=== PATIENT | male | born 1960 | race American Indian/Alaskan Native ===

== ENCOUNTER 2016-04-24 19:28 | Inpatient (IN) | payer MEDICAID ==
[2016-04-24] MEDS ORDERED: Albuterol-Ipratrop 3 mg / 0.5 (3 ml) UD ONE ×2 (19:44→20:14)
[2016-04-24] MEDS ORDERED: Albuterol-Ipratrop 3 mg / 0.5 (3 ml) UD IH STA ×2 (19:50→19:55)
--- NOTE | 2016-04-24 19:55 | ED PDOC ---
HPI: SOB/CHF/COPD Time Seen by Provider: 04/24/16 19:43 Chief Complaint (Nursing): Shortness Of Breath History Per: Patient (SOB and chest tightness x 2 days. Assoc with cough productive white sputum. Denies fever. H/oDVT and PE as well as COPD. Denies calf pain.) Onset/Duration Of Symptoms: Days (2) Quality: Tightness Current Respiratory Medications: See Home Med List Severity: Moderate Associated Symptoms: Productive Cough, Ankle/Leg Swelling. denies: Fever Past Medical History Vital Signs: Last Vital Signs Temp 98.2 F 04/24/16 19:38 Pulse 100 H 04/24/16 19:38 Resp 22 04/24/16 21:56 BP 163/114 H 04/24/16 19:38 Pulse Ox 92 L 04/24/16 21:56 - Medical History PMH: Arthritis, Asthma, Bronchitis, COPD, HTN, Pulmonary Embolism (per old chart. Pt states he had a collapse lung, unsure of PE) Denies: Alzheimer's Disease, Anemia, Atrial Fibrillation, CAD, Cardia Arrhythmia, CHF, Dementia, Emphysema, HIV, Hypercholesterolemia, Hyperthyroidism , Hypothyroidism, Kidney Stones, Migraine, Mitral Valve Prolapse, Multiple Sclerosis, Parkinson's Disease, Peripheral Edema, Pneumonia, Chronic Kidney Disease, Seizures, Sickle Cell Disease, Sleep Apnea, TIA - Surgical History Surgical History: Hernia Repair Denies: Pacemaker - Family History Family History: States: Unknown Family Hx - Immunization History Hx Tetanus Toxoid Vaccination: No Hx Influenza Vaccination: Yes Hx Pneumococcal Vaccination: Yes - Home Medications Home Medications: Ambulatory Orders Medication Instructions Recorded amLODIPine [Norvasc] 5 mg PO DAILY #0 tab 02/23/15 Albuterol 0.083% [Albuterol 0.083% 3 ml IH Q6H PRN #30 neb 04/05/15 Inhal Devora (2.5 mg/3 ml) UD] Albuterol HFA [Ventolin HFA 90 2 puff IH [id number] #1 puff 08/11/15 mcg/actuation (8 g)] Fluticasone/Salmeterol 100/50 1 puff INH RQ12 #0 puff 08/11/15 [Advair Diskus 100/50] Tiotropium [Spiriva] 18 mcg IH DAILY #0 cap 08/11/15 Albuterol HFA [Ventolin HFA 90 1 - 2 puff IH Q6 PRN #1 inhaler 01/21/16 mcg/actuation (8 g)] Methylprednisolone [Medrol Dosepak] 4 mg PO ASDIR #1 pkg 01/21/16 Albuterol 0.083% [Albuterol 0.083% 2.5 mg IH Q4 PRN #20 neb 02/02/16 Inhal Devora (2.5 mg/3 ml) UD] Albuterol HFA [Ventolin HFA 90 1 - 2 puff IH Q4 PRN #1 inhaler 02/02/16 mcg/actuation (8 g)] Prednisone 50 mg PO DAILY #4 tab 02/02/16 Oseltamivir [Tamiflu] 75 mg PO BID #8 cap 02/13/16 Prednisone [Deltasone] 20 mg PO DAILY 10 Days 02/13/16 - Allergies Allergies/Adverse Reactions: Allergies Allergy/AdvReac Type Severity Reaction Status Date / Time No Known Allergies Allergy Verified 02/14/16 23:38 Review of Systems ROS Statement: Except As Marked, All Systems Reviewed And Found Negative Constitutional: Negative for: Fever Cardiovascular: Negative for: Chest Pain Respiratory: Positive for: Cough, Shortness of Breath Physical Exam - Reviewed Nursing Documentation Reviewed: Yes Vital Signs Reviewed: Yes - Physical Exam Appears: Positive for: Non-toxic, Uncomfortable Head Exam: Positive for: ATRAUMATIC, NORMAL INSPECTION, NORMOCEPHALIC Skin: Positive for: Normal Color, Warm, DRY Eye Exam: Positive for: EOMI, Normal appearance, PERRL ENT: Positive for: Normal ENT Inspection Neck: Positive for: Normal, Painless ROM Cardiovascular/Chest: Positive for: Regular Rate, Rhythm Respiratory: Positive for: Rhonchi, Wheezing Gastrointestinal/Abdominal: Positive for: Normal Exam, Bowel Sounds, Soft Back: Positive for: Normal Inspection Extremity: Positive for: Swelling (Induration bilat lower ext.) Neurologic/Psych: Positive for: Alert, Oriented - Laboratory Results Result Diagrams: 04/24/16 20:17 04/24/16 20:17 - ECG O2 Sat by Pulse Oximetry: 92 Disposition - Clinical Impression Clinical Impression: COPD with exacerbation - Patient ED Disposition Is Patient to be Admitted: Transfer of Care - Disposition Disposition: Transfer of Care Disposition Time: 23:49 Condition: FAIR Patient Signed Over To: Ethel Sauer
[2016-04-24 21:28] LABS: BASO # 0.1 K/uL (0.0-0.2); BASO % 1.5 % (0.0-2.0); EOS # 0.4 K/uL (0.0-0.7); EOS % 7.3 % (0.0-4.0); HEMATOCRIT 33.6 % (35.0-51.0); LYMPH # 1.4 K/uL (1.0-4.3); LYMPH % 22.8 % (20.0-40.0); MEAN CELL VOLUME 89.1 fl (80.0-94.0); MEAN CORPUSCULAR HEMOGLOBIN 27.1 pg (27.0-31.0); MEAN CORPUSCULAR HGB CONC 30.4 g/dL (33.0-37.0); MEAN PLATELET VOLUME 9.6 fl (7.2-11.7); MONO # 0.6 K/uL (0.0-0.8); MONO % 9.3 % (0.0-10.0); NEUT # 3.6 K/uL (1.8-7.0); NEUT % 59.1 % (50.0-75.0); NRBC % 0.1 % (0.0-0.0); RED CELL DISTRIBUTION WIDTH 17.5 % (11.5-14.5)
[2016-04-24 21:42] LABS: ALB/GLOB RATIO 0.9 (1.0-2.1); ALKALINE PHOSPHATASE 83 U/L (38-126); ALT/SGPT 28 U/L (21-72); AST/SGOT 25 U/L (17-59); BILIRUBIN,TOTAL 0.6 mg/dl (0.2-1.3); BLOOD UREA NITROGEN 11 mg/dl (9-20); CALCIUM 8.8 mg/dL (8.4-10.2); CARBON DIOXIDE 26 mmol/L (22-30); CHLORIDE 101 mmol/L (98-107); GFR AFRICAN-AMERICAN > 60; GLUCOSE,RANDOM 85 mg/dL (75-110); SODIUM 133 mmol/l (132-148); TOTAL PROTEIN 8.5 G/DL (6.3-8.2)
[2016-04-24 21:46] LABS: POTASSIUM 4.3 MMOL/L (3.6-5.0)
[2016-04-24] MEDS ORDERED: Sodium Chloride 0.9% 50 ML IV ONE (22:31)
[2016-04-24] MEDS ORDERED: Iodixanol 320 MG/ML 100 ML BOTTLE IV ONE (22:31)
--- NOTE | 2016-04-24 23:55 | ED PDOC ---
- Laboratory Results Result Diagrams: 04/26/16 05:00 04/26/16 05:00 - ECG O2 Sat by Pulse Oximetry: 92 Medical Decision Making Medical Decision Makin:00 Pt signed out to me by Dr. Lynn MD. Pending CT, duplex, and admission under Dr. Cates. 00:39 CT FINDINGS: Heart, aorta and Pulmonary arteries: Heart size is normal. There are coronary calcifications.There is fluid in the pericardial recesses.There is no aneurysm or dissection.There are vascular calcifications. Bolus timing limits evaluation of pulmonary arteries. There are no pulmonary emboli. Lungs and Pleural space: Trachea and main bronchi are patent. There is apical scarring bilaterally. There is apical pleural thickening. There are small blebs at the lung apices. There is asymmetric thickening of the right major fissure. There is fatty pleural thickening at the apex of the right major fissure. There is scarring at the lung bases. There are asymmetric groundglass opacities greatest at the lung bases. There is minimal scarring in the lingula. There is no focal consolidation. There are no effusions. Mediastinum: There is shotty mediastinal adenopathy. There are no pathologically enlarged hilar nodes. Esophagus is unremarkable. There is a small hiatal hernia. Thyroid: Thyroid is not optimally demonstrated. Bones/joints: There are no acute osseous abnormalities Soft tissues: unremarkable Upper abdomen: There is a coarse calcification in the right lobe of the liver. IMPRESSION: Slightly limited by bolus timing, no aneurysm, dissection or pulmonary embolus; no focal consolidation Pt will be admitted for COPD exacerbation under Dr. Cates. Duplex LE: bilateral lower extremities DVTS (pt has history) pt given one dose of lovenox for DVTS. pt does not have PEs on CT. DX bilat dvts, copd Documented by Leeann Fierro, acting as a scribe for Ethel Sauer MD. All medical record entries made by the Scribe were at my direction and personally dictated by me. I have reviewed the chart and agree that the record accurately reflects my personal performance of the history, physical exam, medical decision making, and the department course for this patient. I have also personally directed, reviewed, and agree with the discharge instructions and disposition. Disposition - Clinical Impression Clinical Impression: COPD with exacerbation, Deep vein thrombosis - POA Present On Arrival: Deep Vein Thrombosis / PE - Disposition Disposition: Admitted as In-Patient Disposition Time: 21:30 Condition: STABLE
--- NOTE | 2016-04-25 00:10 | CT ---
EXAM: CT Angiography Chest With Intravenous Contrast. CLINICAL HISTORY: 55 years old, male; Signs and symptoms; Shortness of breath; Additional info: Elevated d dimer TECHNIQUE: Axial computed tomographic angiography images of the chest with intravenous contrast using pulmonary embolism protocol. This CT exam was performed using one or more of the following dose reduction techniques: automated exposure control, adjustment of the mA and/or kV according to patient size, and/or use of iterative reconstruction technique. MIP reconstructed images were created and reviewed. Coronal and sagittal reformatted images were created and reviewed. CONTRAST: 95 mL of [id number] administered intravenously. EXAM DATE/TIME: 04/24/2016 10:23 PM COMPARISON: CR - CHEST PORTABLE 04/24/2016 7:59:49 PM FINDINGS: Heart, aorta and Pulmonary arteries: Heart size is normal. There are coronary calcifications.There is fluid in the pericardial recesses.There is no aneurysm or dissection.There are vascular calcifications. Bolus timing limits evaluation of pulmonary arteries. There are no pulmonary emboli. Lungs and Pleural space: Trachea and main bronchi are patent. There is apical scarring bilaterally. There is apical pleural thickening. There are small blebs at the lung apices. There is asymmetric thickening of the right major fissure. There is fatty pleural thickening at the apex of the right major fissure. There is scarring at the lung bases. There are asymmetric groundglass opacities greatest at the lung bases. There is minimal scarring in the lingula. There is no focal consolidation. There are no effusions. Mediastinum: There is shotty mediastinal adenopathy. There are no pathologically enlarged hilar nodes. Esophagus is unremarkable. There is a small hiatal hernia. Thyroid: Thyroid is not optimally demonstrated. Bones/joints: There are no acute osseous abnormalities Soft tissues: unremarkable Upper abdomen: There is a coarse calcification in the right lobe of the liver. IMPRESSION: Slightly limited by bolus timing, no aneurysm, dissection or pulmonary embolus; no focal consolidation
[2016-04-25] MEDS ORDERED: Enoxaparin 80 mg Syringe SC STA (01:32)
[2016-04-25] MEDS ORDERED: Albuterol-Ipratrop 3 mg / 0.5 (3 ml) UD INH STA (02:21)
[2016-04-25] MEDS ORDERED: Albuterol-Ipratrop 3 mg / 0.5 (3 ml) UD ONE (02:29)
[2016-04-25 04:24] VITALS: BMI 24.3
--- NOTE | 2016-04-25 07:12 | CARD ---
APPROVED REPORT EKG Measurement Heart [id number] <Conclusion> Sinus tachycardia Possible Left atrial enlargement Left anterior fascicular block Abnormal ECG
[2016-04-25] MEDS ORDERED: Pneumococcal 23-Valent Vaccine IM ONE (08:00)
[2016-04-25] MEDS ORDERED: Influenza Vaccine(5yr & older) 0.5 ML/45 MCG IM ONE (08:00)
[2016-04-25 10:39] LABS: THYROID STIMULATING HORMONE 4.07 mIU/ML (0.46-4.68)
--- NOTE | 2016-04-25 11:04 | US ---
Bilateral lower extremity ultrasound. Indication: History of DVT Technique: Duplex ultrasound evaluation of the bilateral lower extremities Comparison: None available Findings: Right lower extremity: Occlusive thrombus evident with incomplete compressibility of the confluence of the right common femoral vein and greater saphenous vein. Occlusive thrombus with noncompressibility of the proximal femoral vein, mid femoral vein, and distal femoral vein. Partial compressibility of the right popliteal vein. Flow was noted in the right popliteal vein. The right posterior tibial vein appears patent. Right calf and ankle soft tissue edema. Mildly prominent right inguinal lymph nodes. Left lower extremity: The left common femoral vein appears patent. Occlusive thrombus with noncompressibility of the left femoral vein (proximal, mid, and distal portions). Partial compressibility of the left popliteal vein with flow demonstrated on Doppler imaging. The left posterior tibial vein appears patent. There is calf and ankle soft tissue edema. Sub cm left inguinal lymph nodes. Impression: Bilateral lower extremity thrombus as above. Preliminary impression was provided by virtual radiologic.
--- NOTE | 2016-04-25 13:34 | RAD ---
HISTORY: cough COMPARISON: Chest x-ray performed 02/15/16 TECHNIQUE: Chest, one view. FINDINGS: LUNGS: No focal consolidation. Please note that chest x-ray has limited sensitivity for the detection of pulmonary masses. PLEURA: No significant pleural effusion identified. No definite pneumothorax . CARDIOVASCULAR: Heart size appears within normal limits. Dense atherosclerotic calcifications of the aorta. OSSEOUS STRUCTURES: No acute osseous abnormality identified. VISUALIZED UPPER ABDOMEN: Unremarkable. OTHER FINDINGS: None. IMPRESSION: No focal consolidation, significant pleural effusion, or definite pneumothorax identified.
--- NOTE | 2016-04-25 15:32 | CP.PCM.HP ---
<Heena Pemberton - Last Filed: 04/25/16 15:30> History of Present Illness - History of Present Illness History of Present Illness: pt is a 55 y/o male with history of COPD and bilateral DVT and PE presented to ED yesterday with cc of shortness of breath and productive white sputum with associated chest tightness. ED work up indicated COPD exacerbation and found DVTs in the lower extremity as well but no PE. Pt seen and examined at bedside this morning, sob has improved, denies calf tenderness but lower extremity appears swollen. No abdominal pain, nausea or vomiting. Present on Admission - Present on Admission Any Indicators Present on Admission: Yes History of DVT/PE: Yes Review of Systems - Review of Systems All systems: reviewed and no additional remarkable complaints except Review of Systems: Per HPI Past Patient History - Infectious Disease Hx of Infectious Diseases: None - Past Medical History & Family History Past Medical History?: Yes - Past Social History Smoking Status: 1 pack a d - CARDIAC Hx Cardiac Disorders: Yes (HTN) - PULMONARY Hx Respiratory Disorders: Yes (COPD, BRONCHITIS, ASTHMA) Hx Asthma: Yes Hx Bronchitis: Yes Hx Chronic Obstructive Pulmonary Disease (COPD): Yes Hx Pulmonary Embolism: Yes Other/Comment: collapsed lung - NEUROLOGICAL Hx Neurological Disorder: No Hx Alzheimer's Disease: No Hx Dementia: No Hx Migraine: No Hx Multiple Sclerosis: No Hx Parkinson's Disease: No Hx Seizures: No Hx Transient Ischemic Attacks (TIA): No - HEENT Hx HEENT Problems: No - RENAL Hx Chronic Kidney Disease: No Hx Dialysis: No - ENDOCRINE/METABOLIC Hx Endocrine Disorders: No Hx Hyperthyroidism: No Hx Hypothyroidism: No - HEMATOLOGICAL/ONCOLOGICAL Hx Blood Disorders: No Hx AIDS: No Hx Blood Transfusions: No Hx Blood Transfusion Reaction: No Hx Human Immunodeficiency Virus (HIV): No - INTEGUMENTARY Hx Dermatological Problems: No - MUSCULOSKELETAL/RHEUMATOLOGICAL Hx Musculoskeletal Disorders: Yes Hx Arthritis: Yes Hx Falls: No - GASTROINTESTINAL Hx Gastrointestinal Disorders: Yes Other/Comment: hernia repair - GENITOURINARY/GYNECOLOGICAL Hx Genitourinary Disorders: No - PSYCHIATRIC Hx Psychophysiologic Disorder: Yes Hx Substance Use: Yes (just had one yestreday (heroine)) - SURGICAL HISTORY Hx Surgeries: Yes Hx Herniorrhaphy: Yes Other/Comment: collapsed lung - ANESTHESIA Hx Anesthesia: Yes Hx Anesthesia Reactions: No Hx Malignant Hyperthermia: No Meds Allergies/Adverse Reactions: Allergies Allergy/AdvReac Type Severity Reaction Status Date / Time No Known Allergies Allergy Verified 02/14/16 23:38 Physical Exam - Constitutional Appears: Non-toxic, No Acute Distress - Head Exam Head Exam: NORMOCEPHALIC - Eye Exam Eye Exam: Normal appearance - ENT Exam ENT Exam: Mucous Membranes Moist - Respiratory Exam Respiratory Exam: Clear to Auscultation Bilateral, NORMAL BREATHING PATTERN - Cardiovascular Exam Cardiovascular Exam: REGULAR RHYTHM, +S1, +S2 - GI/Abdominal Exam GI & Abdominal Exam: Normal Bowel Sounds, Soft. absent: Tenderness - Extremities Exam Extremities exam: Positive for: pedal edema. Negative for: calf tenderness Additional comments: 1+ pitting edema in lower extremity bilaterally - Neurological Exam Neurological exam: Alert, CN II-XII Intact, Oriented x3 Results - Vital Signs Recent Vital Signs: Last Vital Signs Temp 98.5 F 04/25/16 12:00 Pulse 66 04/25/16 12:00 Resp 30 H 04/25/16 12:00 BP 140/90 04/25/16 10:00 Pulse Ox 98 04/25/16 12:00 - Labs Result Diagrams: 04/24/16 20:17 04/24/16 20:17 Assessment & Plan - Assessment and Plan (Free Text) Assessment: 55 y/o male with COPD admitted to ICU for COPD exacerbation and bilateral DVT in lower extremity Plan: 1. COPD exacerbation on steriod taper albuterol and home meds resumed antibiotic as ordered continue to monitor 2. Bilateral lower extremity DVT on therapeutic dosage of lovenox will hold Eliqus 3. Lower extremity edema echo ordered r/o underlying cardiac etiology 4. Diet- heart healthy <Cates,Jj K - Last Filed: 04/28/16 12:39> Results - Vital Signs Recent Vital Signs: Last Vital Signs Temp 97.8 F 04/28/16 08:00 Pulse 82 04/28/16 10:23 Resp 24 04/28/16 08:00 BP 149/97 H 04/28/16 10:23 Pulse Ox 99 04/28/16 08:00 - Labs Result Diagrams: 04/26/16 05:00 04/26/16 05:00 Labs: Laboratory Results - last 24 hr 04/27/16 04/27/16 09:31 18:00 Folate 10.0 Stool Occult Blood Negative Assessment & Plan - Assessment and Plan (Free Text) Assessment: Patient was personally seen and examined by me in rounds with residents. Available labs and diagnostic data reviewed. Case, Patient's condition and management plan discussed with residents in rounds. Agree with resident's documentation. Plan: As ordered. Jj Cates MD
[2016-04-25] MEDS: Fluticasone-Salmeterol 100-50mcg Diskus INH SCH ×2 (16:03→22:59)
[2016-04-25] MEDS: methylPREDNISolone 60 MG in Sodium Chloride 0.9% 50 ML IVPB SCH ×2 (16:27→21:35)
--- NOTE | 2016-04-25 20:45 | CP.CCUPN ---
CCU Subjective - Physician Review Events Since Last Encounter (Free Text): 04/25/16 20:38 Reason for assessment: Mental status change HPI: This is a 55 y/o male here with COPD exacerbation and DVT on Lovenox. Notified by nurse that he started acting abnormally and having some 'seizure like activity'. Came to see patient-- he is awake and answering questions, but does not reliably follow commands. He does not appear to have any seizure-like activity at this time. He has no c/c. He was being visited by a friend, and friend notified nurse that he was acting abnormal. Friend and patient deny that patient took any substance prior to onset of abnormal behavior. BP: elevated SBP > 170 Phys Exam: Only acute finding appears to be that patient is acting 'abnormally' -- appears ?intoxicated. Able to answer some questions. Appears to be able to move all extremities, but repeatedly holds RUE in the air. A/P: 55 y/o male with acute change in mental status -CT head non con stat -CMP, CBC stat -UDS stat CCU Objective - Vital Signs / Intake & Output Vital Signs (Last 4 hours): Vital Signs Pulse Resp BP Pulse Ox 04/25/16 19:57 100 H 25 H 140/51 L 98 04/25/16 17:50 83 25 H 141/92 H 99 - Medications Active Medications: Active Medications Generic Name Dose Route Start Last Admin Trade Name Freq PRN Reason Stop Dose Admin Amlodipine Besylate 5 mg 04/26/16 09:00 Norvasc PO DAILY LILY Enoxaparin Sodium 80 mg 04/25/16 21:00 Lovenox SC Q12 LILY Protocol Methylprednisolone 60 mg/ 50.96 mls @ 100 mls/hr 04/25/16 16:00 04/25/16 16:27 Sodium Chloride IVPB 100 mls/hr Q6 LILY Administration Levofloxacin/Dextrose 100 mls @ 100 mls/hr 04/26/16 09:00 Levaquin 500mg IVPB DAILY LILY Fluticasone/Salmeterol 1 puff 04/25/16 15:15 04/25/16 16:03 Advair Diskus 100/50 INH 1 puff RBID LILY Administration Tiotropium [place] 18 mcg 04/26/16 09:00 Spiriva IH DAILY LILY
[2016-04-25 21:01] LABS: HEMATOCRIT 33.1 % (35.0-51.0); MEAN CELL VOLUME 87.9 fl (80.0-94.0); MEAN CORPUSCULAR HEMOGLOBIN 27.3 pg (27.0-31.0); MEAN CORPUSCULAR HGB CONC 31.1 g/dL (33.0-37.0); RED CELL DISTRIBUTION WIDTH 17.5 % (11.5-14.5); WHITE BLOOD COUNT 6.1 K/uL (4.8-10.8)
[2016-04-25 21:04] LABS: FOLATE 14.5 ng/mL
--- NOTE | 2016-04-25 21:10 | CT ---
EXAM: CT Head Without Intravenous Contrast. CLINICAL HISTORY: 55 years old, male; Signs and symptoms; Other: AMS TECHNIQUE: Axial computed tomography images of the head/brain without intravenous contrast. This CT exam was performed using one or more of the following dose reduction techniques: automated exposure control, adjustment of the mA and/or kV according to patient size, and/or use of iterative reconstruction technique. Coronal and sagittal reformatted images were created and reviewed. EXAM DATE/TIME: 04/25/2016 8:35 PM COMPARISON: There are no prior studies for comparison. FINDINGS: Artifacts: Motion artifact degrades image quality. Brain: Ventricles are normal in size and configuration. There is no midline shift. There are no intra-axial or extra-axial mass lesions or areas of hemorrhage.There are basal ganglia calcifications. There are no abnormal fluid collections. Bazan-white differentiation is maintained. Ventricles: See above. Bones: Cranial vault is intact. Soft tissues: unremarkable Sinuses: There is frontal and sphenoid sinus disease Ears and mastoids: Middle ears and mastoids are unremarkable Orbits: Orbital contents are unremarkable. IMPRESSION: No acute intracranial abnormality; sinus disease
[2016-04-25 21:20] LABS: ALB/GLOB RATIO 0.9 (1.0-2.1); ALKALINE PHOSPHATASE 95 U/L (38-126); ALT/SGPT 20 U/L (21-72); AST/SGOT 23 U/L (17-59); BILIRUBIN,TOTAL 0.3 mg/dl (0.2-1.3); BLOOD UREA NITROGEN 16 mg/dl (9-20); CALCIUM 9.5 mg/dL (8.4-10.2); CARBON DIOXIDE 29 mmol/L (22-30); CHLORIDE 98 mmol/L (98-107); GFR AFRICAN-AMERICAN > 60; GLUCOSE,RANDOM 124 mg/dL (75-110); SODIUM 135 mmol/l (132-148); TOTAL PROTEIN 8.9 G/DL (6.3-8.2)
[2016-04-25 21:28] LABS: POTASSIUM 5.6 MMOL/L (3.6-5.0)
[2016-04-25] MEDS: Enoxaparin 80 mg Syringe SC SCH (22:19)
[2016-04-26] MEDS: methylPREDNISolone 60 MG in Sodium Chloride 0.9% 50 ML IVPB SCH ×4 (04:13→22:09)
[2016-04-26 06:44] LABS: HEMATOCRIT 30.3 % (35.0-51.0); MEAN CELL VOLUME 88.4 fl (80.0-94.0); MEAN CORPUSCULAR HEMOGLOBIN 27.3 pg (27.0-31.0); MEAN CORPUSCULAR HGB CONC 30.9 g/dL (33.0-37.0); RED CELL DISTRIBUTION WIDTH 17.5 % (11.5-14.5); WHITE BLOOD COUNT 4.8 K/uL (4.8-10.8)
[2016-04-26 07:05] LABS: BLOOD UREA NITROGEN 16 mg/dl (9-20); CALCIUM 9.3 mg/dL (8.4-10.2); CARBON DIOXIDE 27 mmol/L (22-30); CHLORIDE 101 mmol/L (98-107); GFR AFRICAN-AMERICAN > 60; GLUCOSE,RANDOM 132 mg/dL (75-110); POTASSIUM 4.9 MMOL/L (3.6-5.0); SODIUM 137 mmol/l (132-148)
--- NOTE | 2016-04-26 07:18 | CARD ---
APPROVED REPORT EXAM: Two-dimensional and M-mode echocardiogram with Doppler and color Doppler. Other Information Quality : AverageRhythm : NSR INDICATION Dyspnea Peripheral Edema 2D DIMENSIONS IVSd1.19 (0.7-1.1cm)LVDd4.75 (3.9-5.9cm) PWd1.04 (0.7-1.1cm)IVSs1.30 (0.8-1.2cm) LVDs3.20 (2.5-4.0cm)FS (%) 32.7 % PWs1.71 (0.8-1.2cm) M-Mode DIMENSIONS Left Atrium (MM)3.53 (2.5-4.0cm)IVSd1.13 (0.7-1.1cm) Aortic Root3.50 (2.2-3.7cm)LVDd5.24 (4.0-5.6cm) Aortic Cusp Exc.1.88 (1.5-2.0cm)PWd0.99 (0.7-1.1cm) IVSs1.60 cmFS (%) 32 % LVDs3.56 (2.0-3.8cm)PWs1.60 cm Mitral Valve MV E Lajmlqnq20.1cm/sMV DECEL [id number] A Bcdgrqmj85.1cm/s MV JUU28ofA/A ratio1.1MVA (PHT)4.41cm2 TDI Lateral E' Peak V9.45cm/sMedial E' Peak V8.64cm/sE/Lateral E'10.0 E/Medial E'10.9 Tricuspid Valve TR Peak Neujdvec629hk/sRAP [id number] Peak Gr.32mmHg [id number] LEFT VENTRICLE The left ventricle is normal size. There is normal left ventricular wall thickness. Left ventricle systolic function is normal. The Ejection Fraction is 65-70%. There is normal LV segmental wall motion. The left ventricular diastolic function is normal. RIGHT VENTRICLE The right ventricle is normal size. There is normal right ventricular wall thickness. The right ventricular systolic function is normal. ATRIA The left atrium size is normal. The right atrium size is normal. The interatrial septum is intact with no evidence for an atrial septal defect. AORTIC VALVE The aortic valve is normal in structure and function. No aortic regurgitation is present. There is no aortic valvular stenosis. MITRAL VALVE The mitral valve is normal in structure and function. There is no evidence of mitral valve prolapse. There is no mitral valve stenosis. There is no mitral valve regurgitation noted. TRICUSPID VALVE The tricuspid valve is normal in structure. There is mild to moderate tricuspid regurgitation. Right ventricular systolic pressure is estimated at 42 mmHg. There is mild-moderate pulmonary hypertension. PULMONIC VALVE The pulmonary valve is normal in structure and function. There is no pulmonic valvular regurgitation. GREAT VESSELS The aortic root is normal in size. Due to poor image quality, the IVC could not be assessed. PERICARDIAL EFFUSION The pericardium appears normal. <Conclusion> The left ventricle is normal size. There is normal left ventricular wall thickness. There is normal LV segmental wall motion. Left ventricle systolic function is normal. The Ejection Fraction is 65-70%. The left ventricular diastolic function is normal. There is mild to moderate tricuspid regurgitation. There is mild-moderate pulmonary hypertension.
--- NOTE | 2016-04-26 08:18 | HP ---
CHIEF COMPLAINT: Shortness of breath. HISTORY OF PRESENT ILLNESS: This is a 55-year-old male, known case of COPD, hypertension, history of DVT, and pulmonary embolism, bronchitis, asthma, arthritis, and obesity who was having shortness of breath so the patient was brought to Emergency Room and was admitted for further management. The pat ient was having chest tightness and shortness of breath for 2 days, which did not improve and got wor se. REVIEW OF SYSTEMS: Positive for chest tightness and shortness of breath. Review of systems otherwis e negative for headache, dizziness, syncope, loss of consciousness, nausea, vomiting, diarrhea, const ipation, any new joint or extremity pain. Review of systems of all other organ systems is unremarkab le. PAST MEDICAL HISTORY: Significant for pulmonary embolism, DVT, hypertension, COPD, bronchial asthma, arthritis, obesity. PAST SURGICAL HISTORY: Remarkable for . PERSONAL HISTORY: The patient is currently nonsmoker, nondrinker, no substance abuse. MEDICATIONS: The patient is on multiple medications which include amlodipine, albuterol, Advair, Spi sayra, prednisolone, Tamiflu. The patient is not allergic to any medication. FAMILY HISTORY: Noncontributory. PHYSICAL EXAMINATION: Well-built, well-nourished, overweight male in no acute distress. VITAL SIGNS: Temperature 98.5, pulse 66, respirations 18, blood pressure 140/90. HEENT EXAMINATION: Pupils reacting to light. The patient is wearing glasses. No JVD, no thyromegaly, no lymphadenopathy. No nystagmus. Normocephalic, atraumatic skull. HEART EXAMINATION: S1, S2 normal, tachycardic. No significant murmur, gallop, or rub is heard. LUNG EXAMINATION: Shows good bilateral air exchange, prolonged expiratory rate consistent with COPD with exacerbation. No rales or rhonchi. ABDOMEN: Soft, nontender, no organomegaly, no fluid. Bowel sounds are plus. EXTREMITY EXAMINATION: No edema, no calf swelling, no tenderness, no acute ischemia. CENTRAL NERVOUS SYSTEM EXAMINATION: The patient is alert, awake, oriented x 3. There is no sign of any acute gross focal, motor, or sensory neurological deficit. DIAGNOSTIC DATA: Available diagnostic data reviewed. WBC 6.0, hemoglobin 10.2, hematocrit 33.6, kandice telets 260, 11.5. INR 1.1. D-dimer is 3.99. SMA-12: Sodium 143, potassium 4.3, chloride 102, bicarb 26, BUN 11, creatinine 0.3. SMA-12 is unremarkable. Chest x-ray is clear. Chest CAT scan shows no aneurysm, dissection, or pulmonary embolism. Extremit y ultrasound shows bilateral DVTs. ADMITTING IMPRESSION: Chronic obstructive pulmonary disease with exacerbation, bilateral deep vein t hrombosis, hypertension, asthma, bronchitis. PLAN: As ordered. Case and plan discussed with the patient. Case and plan also discussed with inte nsivist. Jj Cates MD cc: [id number] TT: 04/25/2016 18:57:56 jn
[2016-04-26] MEDS: Fluticasone-Salmeterol 100-50mcg Diskus INH SCH ×2 (08:32→20:43)
[2016-04-26] MEDS: Enoxaparin 80 mg Syringe SC SCH ×2 (08:33→20:44)
[2016-04-26] MEDS: Tiotropium 18 mcg Cap For Inhalation IH SCH (08:34)
--- NOTE | 2016-04-26 12:14 | CP.PCM.PN ---
<Heena Pemberton - Last Filed: 04/26/16 12:17> Subjective - Date & Time of Evaluation Date of Evaluation: 04/26/16 Time of Evaluation: 07:40 - Subjective Subjective: Pt seen and examined at bedside, doing ok, states breathing has improved. does not have any complaints Objective - Vital Signs/Intake and Output Vital Signs (last 24 hours): Temp Pulse Resp BP Pulse Ox 97.7 F 77 20 132/72 98 04/26/16 12:00 04/26/16 12:00 04/26/16 12:00 04/26/16 12:00 04/26/16 12:00 Intake and Output: 04/26/16 04/26/16 06:59 18:59 Intake Total 400 Output Total 400 Balance 0 - Medications Medications: Current Medications Amlodipine Besylate (Norvasc) 5 mg PO DAILY [facility] Last Admin: 04/26/16 08:34 Dose: 5 mg Enoxaparin Sodium (Lovenox) 80 mg SC Q12 [facility] PRN Reason: Protocol Last Admin: 04/26/16 08:33 Dose: 80 mg Methylprednisolone 60 mg/ (Sodium Chloride) 50.96 mls @ 100 mls/hr IVPB Q6 [facility] Last Admin: 04/26/16 10:50 Dose: 100 mls/hr Levofloxacin/Dextrose (Levaquin 500mg) 100 mls @ 100 mls/hr IVPB DAILY [facility] Last Admin: 04/26/16 08:33 Dose: 100 mls/hr Fluticasone/Salmeterol (Advair Diskus 100/50) 1 puff INH RBID [facility] Last Admin: 04/26/16 08:32 Dose: 1 puff Tiotropium [place] (Spiriva) 18 mcg IH DAILY [facility] Last Admin: 04/26/16 08:34 Dose: 18 mcg - Labs Labs: 04/26/16 05:00 04/26/16 05:00 PT 11.5 SECONDS (9.6-11.2) H 04/24/16 20:17 INR 1.11 (0.92-1.08) H 04/24/16 20:17 - Constitutional Appears: No Acute Distress - Head Exam Head Exam: NORMOCEPHALIC - Eye Exam Eye Exam: Normal appearance - ENT Exam ENT Exam: Mucous Membranes Moist - Respiratory Exam Respiratory Exam: Clear to Ausculation Bilateral, NORMAL BREATHING PATTERN - Cardiovascular Exam Cardiovascular Exam: REGULAR RHYTHM, +S1, +S2 - GI/Abdominal Exam GI & Abdominal Exam: Soft, Normal Bowel Sounds - Extremities Exam Extremities Exam: Calf Tenderness, Pedal Edema - Neurological Exam Neurological Exam: Alert, Awake Assessment and Plan - Assessment and Plan (Free Text) Assessment: 55 y/o male with COPD admitted to ICU for COPD exacerbation and bilateral DVT in lower extremity Plan: 1. COPD exacerbation on steriod taper albuterol and home meds resumed antibiotic as ordered continue to monitor 2. Bilateral lower extremity DVT on therapeutic dosage of lovenox Hematology consulted will hold Eliqus 3. Lower extremity edema echo - shows mild pulmonary hypertension 4. Diet- heart healthy <Cates,Jj K - Last Filed: 04/28/16 12:40> Objective - Vital Signs/Intake and Output Vital Signs (last 24 hours): Temp Pulse Resp BP Pulse Ox 97.8 F 82 24 149/97 H 99 04/28/16 08:00 04/28/16 10:23 04/28/16 08:00 04/28/16 10:23 04/28/16 08:00 - Medications Medications: Current Medications Amlodipine Besylate (Norvasc) 10 mg PO DAILY [facility] Last Admin: 04/28/16 10:23 Dose: 10 mg Enoxaparin Sodium (Lovenox) 80 mg SC Q12 [facility] PRN Reason: Protocol Last Admin: 04/28/16 10:20 Dose: 80 mg Levofloxacin/Dextrose (Levaquin 500mg) 100 mls @ 100 mls/hr IVPB DAILY [facility] Last Admin: 04/28/16 10:21 Dose: 100 mls/hr Methylprednisolone 60 mg/ (Sodium Chloride) 50.96 mls @ 100 mls/hr IVPB Q12 [facility] Stop: 04/28/16 23:59 Last Admin: 04/28/16 10:39 Dose: 100 mls/hr Methylprednisolone 40 mg/ (Sodium Chloride) 50 mls @ 100 mls/hr IVPB Q12 [facility] Stop: 04/30/16 23:59 Fluticasone/Salmeterol (Advair Diskus 100/50) 1 puff INH RBID [facility] Last Admin: 04/28/16 10:21 Dose: 1 puff Tiotropium [place] (Spiriva) 18 mcg IH DAILY [facility] Last Admin: 04/28/16 10:24 Dose: 18 mcg - Labs Labs: 04/26/16 05:00 04/26/16 05:00 PT 11.5 SECONDS (9.6-11.2) H 04/24/16 20:17 INR 1.11 (0.92-1.08) H 04/24/16 20:17 Assessment and Plan - Assessment and Plan (Free Text) Assessment: Patient was personally seen and examined by me in rounds with residents. Available labs and diagnostic data reviewed. Case, Patient's condition and management plan discussed with residents in rounds. Agree with resident's documentation. Plan: As ordered. Jj Cates MD
--- NOTE | 2016-04-27 02:03 | CP.PCM.CON ---
History of Present Illness - History of Present Illness History of Present Illness: 55 year old male with a history of tobacco abuse, drug abuse DVT/PE s/p IVC filter, admitted with b/l lower extremity DVTs. The patient reports to increased swelling and pain in his legs. This prompted him to come to the ER and was found to have B/L leg DVTs. He is currently receiving therapeutic anticoagulation and reports to feeling better. Past medical history: Recurrent DVT/PE, COPD Past surgical history: None Family history: Denies hematologic and oncologic problems Social history: 1ppd x 40 years, denies tobacco. Allergies: NKA Review of systems including HEENT, cardiovascular, respiratory, gastrointestinal , genitourinary, musculoskeletal, dermatologic, neurologic, and psychiatric are negative unless mentioned in the HPI. Past Patient History - Infectious Disease Hx of Infectious Diseases: None - Past Medical History & Family History Past Medical History?: Yes - Past Social History Smoking Status: 1 pack a d - CARDIAC Hx Cardiac Disorders: Yes (HTN) - PULMONARY Hx Respiratory Disorders: Yes (COPD, BRONCHITIS, ASTHMA) Hx Asthma: Yes Hx Bronchitis: Yes Hx Chronic Obstructive Pulmonary Disease (COPD): Yes Hx Pulmonary Embolism: Yes Other/Comment: collapsed lung - NEUROLOGICAL Hx Neurological Disorder: No Hx Alzheimer's Disease: No Hx Dementia: No Hx Migraine: No Hx Multiple Sclerosis: No Hx Parkinson's Disease: No Hx Seizures: No Hx Transient Ischemic Attacks (TIA): No - HEENT Hx HEENT Problems: No - RENAL Hx Chronic Kidney Disease: No Hx Dialysis: No - ENDOCRINE/METABOLIC Hx Endocrine Disorders: No Hx Hyperthyroidism: No Hx Hypothyroidism: No - HEMATOLOGICAL/ONCOLOGICAL Hx Blood Disorders: No Hx AIDS: No Hx Blood Transfusions: No Hx Blood Transfusion Reaction: No Hx Human Immunodeficiency Virus (HIV): No - INTEGUMENTARY Hx Dermatological Problems: No - MUSCULOSKELETAL/RHEUMATOLOGICAL Hx Musculoskeletal Disorders: Yes Hx Arthritis: Yes Hx Falls: No - GASTROINTESTINAL Hx Gastrointestinal Disorders: Yes Other/Comment: hernia repair - GENITOURINARY/GYNECOLOGICAL Hx Genitourinary Disorders: No - PSYCHIATRIC Hx Psychophysiologic Disorder: Yes Hx Substance Use: Yes (just had one yestreday (heroine)) - SURGICAL HISTORY Hx Surgeries: Yes Hx Herniorrhaphy: Yes Other/Comment: collapsed lung - ANESTHESIA Hx Anesthesia: Yes Hx Anesthesia Reactions: No Hx Malignant Hyperthermia: No Meds Allergies/Adverse Reactions: Allergies Allergy/AdvReac Type Severity Reaction Status Date / Time No Known Allergies Allergy Verified 02/14/16 23:38 - Medications Medications: Current Medications Amlodipine Besylate (Norvasc) 5 mg PO DAILY [facility] Last Admin: 04/26/16 08:34 Dose: 5 mg Enoxaparin Sodium (Lovenox) 80 mg SC Q12 [facility] PRN Reason: Protocol Last Admin: 04/26/16 20:44 Dose: 80 mg Methylprednisolone 60 mg/ (Sodium Chloride) 50.96 mls @ 100 mls/hr IVPB Q6 [facility] Last Admin: 04/26/16 22:09 Dose: 100 mls/hr Levofloxacin/Dextrose (Levaquin 500mg) 100 mls @ 100 mls/hr IVPB DAILY [facility] Last Admin: 04/26/16 08:33 Dose: 100 mls/hr Fluticasone/Salmeterol (Advair Diskus 100/50) 1 puff INH RBID [facility] Last Admin: 04/26/16 20:43 Dose: 1 puff Tiotropium [place] (Spiriva) 18 mcg IH DAILY [facility] Last Admin: 04/26/16 08:34 Dose: 18 mcg Physical Exam - Head Exam Head Exam: ATRAUMATIC - Eye Exam Eye Exam: Normal appearance - ENT Exam ENT Exam: Mucous Membranes Dry - Respiratory Exam Respiratory Exam: NORMAL BREATHING PATTERN - Cardiovascular Exam Cardiovascular Exam: +S1, +S2 - GI/Abdominal Exam GI & Abdominal Exam: Normal Bowel Sounds - Extremities Exam Extremities exam: Positive for: pedal edema - Neurological Exam Neurological exam: Oriented x3 - Psychiatric Exam Psychiatric exam: Normal Affect, Normal Mood - Skin Skin Exam: Warm Results - Vital Signs Recent Vital Signs: Last Vital Signs Temp 98.4 F 04/26/16 20:00 Pulse 71 04/26/16 21:00 Resp 22 04/26/16 20:00 BP 158/78 H 04/26/16 20:00 Pulse Ox 92 L 04/26/16 19:00 - Labs Result Diagrams: 04/26/16 05:00 04/26/16 05:00 Labs: Laboratory Results - last 24 hr 04/26/16 05:00 WBC 4.8 RBC 3.43 L Hgb 9.4 L Hct 30.3 L MCV 88.4 MCH 27.3 MCHC 30.9 L RDW 17.5 H Plt Count 268 D Sodium 137 Potassium 4.9 Chloride 101 Carbon Dioxide 27 Anion Gap 14 BUN 16 Creatinine 0.8 Est GFR ( Amer) > 60 Est GFR (Non-Af Amer) > 60 Random Glucose 132 H Calcium 9.3 Assessment & Plan (1) Deep vein thrombosis Assessment and Plan: recurrent venous clotting had IVC filter placement in 2016 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 Status: Acute
[2016-04-27] MEDS: methylPREDNISolone 60 MG in Sodium Chloride 0.9% 50 ML IVPB SCH ×2 (03:38→21:14)
--- NOTE | 2016-04-27 06:49 | PQF GENQUE ---
This form is a permanent part of the medical record 04/27/16 , Further documentation is needed regarding the DVT (Deep Venous Thrombosis ) for this admission. 1) Please specify the specific vessel (vein) involved, including laterality. 2) . Please specify the acuity: Acute Chronic History of/healed with no prophylaxis History of/healed with prophylaxis Other (please specify) Unable to determine Unknown Admitted with bilateral leg swelling , chest tightness and SOB. Venous Duplex of lower extremities : RLE and LLE with thrombus. Treated with Lovenox and hematology consult. Clarification of your documentation is requested to better reflect the severity of illness and intensity of treatment of your patient. PHYSICIAN'S RESPONSE Based on your medical judgment of the clinical indicators outlined above please clarify the following: [] Practitioner response [] If unable to determine, please check the box, sign and date. Present On Admission (POA) Indicator: [] Present at the time of admission [] Not present at the time of admission [] Clinically Undetermined In responding to this query, please exercise your independent professional judgment. The fact that a question is asked does not imply that any particular answer is desired or expected. Thank you for your clarification on this documentation. If you have any questions please call:[phone] * Thank you, Rubia Betts RN [facility]
[2016-04-27] MEDS: Fluticasone-Salmeterol 100-50mcg Diskus INH SCH ×2 (09:16→21:13)
[2016-04-27] MEDS: Enoxaparin 80 mg Syringe SC SCH ×2 (09:17→21:14)
[2016-04-27] MEDS: Tiotropium 18 mcg Cap For Inhalation IH SCH (09:21)
--- NOTE | 2016-04-27 12:45 | CP.PCM.PN ---
<Heena Pemberton - Last Filed: 04/27/16 12:47> Subjective - Date & Time of Evaluation Date of Evaluation: 04/27/16 Time of Evaluation: 09:30 - Subjective Subjective: Pt seen and examined at bedside, doing well. breathing has improved greatly, Lower leg edema has improved as well. does not have any complaints Objective - Vital Signs/Intake and Output Vital Signs (last 24 hours): Temp Pulse Resp BP Pulse Ox 98.6 F 80 22 140/79 99 04/27/16 08:00 04/27/16 10:00 04/27/16 10:00 04/27/16 10:00 04/27/16 10:00 - Medications Medications: Current Medications Amlodipine Besylate (Norvasc) 5 mg PO DAILY [facility] Last Admin: 04/27/16 09:20 Dose: 5 mg Enoxaparin Sodium (Lovenox) 80 mg SC Q12 [facility] PRN Reason: Protocol Last Admin: 04/27/16 09:17 Dose: 80 mg Levofloxacin/Dextrose (Levaquin 500mg) 100 mls @ 100 mls/hr IVPB DAILY [facility] Last Admin: 04/27/16 09:17 Dose: 100 mls/hr Methylprednisolone 60 mg/ (Sodium Chloride) 50.96 mls @ 100 mls/hr IVPB Q12 [facility] Fluticasone/Salmeterol (Advair Diskus 100/50) 1 puff INH RBID [facility] Last Admin: 04/27/16 09:16 Dose: 1 puff Tiotropium [place] (Spiriva) 18 mcg IH DAILY [facility] Last Admin: 04/27/16 09:21 Dose: 18 mcg - Labs Labs: 04/26/16 05:00 04/26/16 05:00 PT 11.5 SECONDS (9.6-11.2) H 04/24/16 20:17 INR 1.11 (0.92-1.08) H 04/24/16 20:17 - Constitutional Appears: Non-toxic, No Acute Distress - Head Exam Head Exam: NORMOCEPHALIC - Respiratory Exam Respiratory Exam: Clear to Ausculation Bilateral, NORMAL BREATHING PATTERN. absent: Wheezes - Cardiovascular Exam Cardiovascular Exam: REGULAR RHYTHM, +S1, +S2 - GI/Abdominal Exam GI & Abdominal Exam: Soft, Normal Bowel Sounds. absent: Tenderness - Extremities Exam Extremities Exam: Pedal Edema. absent: Calf Tenderness - Neurological Exam Neurological Exam: Alert, Awake, Oriented x3 Assessment and Plan - Assessment and Plan (Free Text) Assessment: 55 y/o male with COPD admitted to ICU for COPD exacerbation and bilateral DVT in lower extremity Plan: 1. COPD exacerbation on steriod taper albuterol and home meds resumed antibiotic as ordered continue to monitor 2. Bilateral Acute recurrent lower extremity DVT on therapeutic dosage of lovenox Hematology recommendation appreciated awaiting caogulation work up results will hold Eliqus 3. Lower extremity edema echo - shows mild pulmonary hypertension 4. Diet- heart healthy <Cates,Jj K - Last Filed: 04/28/16 12:42> Objective - Vital Signs/Intake and Output Vital Signs (last 24 hours): Temp Pulse Resp BP Pulse Ox 97.8 F 82 24 149/97 H 99 04/28/16 08:00 04/28/16 10:23 04/28/16 08:00 04/28/16 10:23 04/28/16 08:00 - Medications Medications: Current Medications Amlodipine Besylate (Norvasc) 10 mg PO DAILY [facility] Last Admin: 04/28/16 10:23 Dose: 10 mg Enoxaparin Sodium (Lovenox) 80 mg SC Q12 [facility] PRN Reason: Protocol Last Admin: 04/28/16 10:20 Dose: 80 mg Levofloxacin/Dextrose (Levaquin 500mg) 100 mls @ 100 mls/hr IVPB DAILY [facility] Last Admin: 04/28/16 10:21 Dose: 100 mls/hr Methylprednisolone 60 mg/ (Sodium Chloride) 50.96 mls @ 100 mls/hr IVPB Q12 [facility] Stop: 04/28/16 23:59 Last Admin: 04/28/16 10:39 Dose: 100 mls/hr Methylprednisolone 40 mg/ (Sodium Chloride) 50 mls @ 100 mls/hr IVPB Q12 [facility] Stop: 04/30/16 23:59 Fluticasone/Salmeterol (Advair Diskus 100/50) 1 puff INH RBID [facility] Last Admin: 04/28/16 10:21 Dose: 1 puff Tiotropium [place] (Spiriva) 18 mcg IH DAILY [facility] Last Admin: 04/28/16 10:24 Dose: 18 mcg - Labs Labs: 04/26/16 05:00 04/26/16 05:00 PT 11.5 SECONDS (9.6-11.2) H 04/24/16 20:17 INR 1.11 (0.92-1.08) H 04/24/16 20:17 Assessment and Plan - Assessment and Plan (Free Text) Assessment: Patient was personally seen and examined by me in rounds with residents. Available labs and diagnostic data reviewed. Case, Patient's condition and management plan discussed with residents in rounds. Agree with resident's documentation. Plan: As ordered. Jj Cates MD
--- NOTE | 2016-04-27 22:18 | CP.PCM.PN ---
Subjective - Date & Time of Evaluation Date of Evaluation: 04/27/16 Time of Evaluation: 20:00 - Subjective Subjective: Feels leg swelling improved Objective - Vital Signs/Intake and Output Vital Signs (last 24 hours): Temp Pulse Resp BP Pulse Ox 99.9 F H 64 20 149/67 97 04/27/16 20:00 04/27/16 20:00 04/27/16 20:00 04/27/16 20:00 04/27/16 20:00 Intake and Output: 04/27/16 04/28/16 18:59 06:59 Intake Total 500 Output Total 1000 Balance -500 - Medications Medications: Current Medications Amlodipine Besylate (Norvasc) 5 mg PO DAILY [facility] Last Admin: 04/27/16 09:20 Dose: 5 mg Enoxaparin Sodium (Lovenox) 80 mg SC Q12 [facility] PRN Reason: Protocol Last Admin: 04/27/16 21:14 Dose: 80 mg Levofloxacin/Dextrose (Levaquin 500mg) 100 mls @ 100 mls/hr IVPB DAILY [facility] Last Admin: 04/27/16 09:17 Dose: 100 mls/hr Methylprednisolone 60 mg/ (Sodium Chloride) 50.96 mls @ 100 mls/hr IVPB Q12 [facility] Last Admin: 04/27/16 21:14 Dose: 100 mls/hr Fluticasone/Salmeterol (Advair Diskus 100/50) 1 puff INH RBID [facility] Last Admin: 04/27/16 21:13 Dose: 1 puff Tiotropium [place] (Spiriva) 18 mcg IH DAILY [facility] Last Admin: 04/27/16 09:21 Dose: 18 mcg - Labs Labs: 04/26/16 05:00 04/26/16 05:00 PT 11.5 SECONDS (9.6-11.2) H 04/24/16 20:17 INR 1.11 (0.92-1.08) H 04/24/16 20:17 - Head Exam Head Exam: ATRAUMATIC - Eye Exam Eye Exam: Normal appearance - ENT Exam ENT Exam: Mucous Membranes Dry - Respiratory Exam Respiratory Exam: NORMAL BREATHING PATTERN - Cardiovascular Exam Cardiovascular Exam: +S1, +S2 - GI/Abdominal Exam GI & Abdominal Exam: Normal Bowel Sounds - Extremities Exam Extremities Exam: Pedal Edema Assessment and Plan (1) Deep vein thrombosis Assessment & Plan: recurrent has IVC filter placed in 2016 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
[2016-04-28] MEDS: Enoxaparin 80 mg Syringe SC SCH ×2 (10:20→21:31)
[2016-04-28] MEDS: Fluticasone-Salmeterol 100-50mcg Diskus INH SCH ×2 (10:21→21:30)
[2016-04-28] MEDS: Tiotropium 18 mcg Cap For Inhalation IH SCH (10:24)
[2016-04-28] MEDS: methylPREDNISolone 60 MG in Sodium Chloride 0.9% 50 ML IVPB SCH ×2 (10:39→21:31)
--- NOTE | 2016-04-28 11:27 | CP.PCM.PN ---
<NilayHeena - Last Filed: 04/28/16 11:34> Subjective - Date & Time of Evaluation Date of Evaluation: 04/28/16 Time of Evaluation: 07:40 - Subjective Subjective: Pt was seen and examined at bedside, states he feels a lot better, breathing has improved, leg swelling is starting to decrease. overnight events reviewed Objective - Vital Signs/Intake and Output Vital Signs (last 24 hours): Temp Pulse Resp BP Pulse Ox 97.8 F 82 24 149/97 H 99 04/28/16 08:00 04/28/16 10:23 04/28/16 08:00 04/28/16 10:23 04/28/16 08:00 - Medications Medications: Current Medications Amlodipine Besylate (Norvasc) 10 mg PO DAILY [facility] Last Admin: 04/28/16 10:23 Dose: 10 mg Enoxaparin Sodium (Lovenox) 80 mg SC Q12 [facility] PRN Reason: Protocol Last Admin: 04/28/16 10:20 Dose: 80 mg Levofloxacin/Dextrose (Levaquin 500mg) 100 mls @ 100 mls/hr IVPB DAILY [facility] Last Admin: 04/28/16 10:21 Dose: 100 mls/hr Methylprednisolone 60 mg/ (Sodium Chloride) 50.96 mls @ 100 mls/hr IVPB Q12 [facility] Stop: 04/28/16 23:59 Last Admin: 04/28/16 10:39 Dose: 100 mls/hr Methylprednisolone 40 mg/ (Sodium Chloride) 50 mls @ 100 mls/hr IVPB Q12 [facility] Stop: 04/30/16 23:59 Fluticasone/Salmeterol (Advair Diskus 100/50) 1 puff INH RBID [facility] Last Admin: 04/28/16 10:21 Dose: 1 puff Tiotropium [place] (Spiriva) 18 mcg IH DAILY [facility] Last Admin: 04/28/16 10:24 Dose: 18 mcg - Labs Labs: 04/26/16 05:00 04/26/16 05:00 PT 11.5 SECONDS (9.6-11.2) H 04/24/16 20:17 INR 1.11 (0.92-1.08) H 04/24/16 20:17 - Constitutional Appears: Non-toxic, No Acute Distress - Head Exam Head Exam: NORMOCEPHALIC - Eye Exam Eye Exam: Normal appearance - ENT Exam ENT Exam: Mucous Membranes Moist - Respiratory Exam Respiratory Exam: Clear to Ausculation Bilateral, NORMAL BREATHING PATTERN. absent: Rhonchi, Wheezes - Cardiovascular Exam Cardiovascular Exam: REGULAR RHYTHM, +S1, +S2 - GI/Abdominal Exam GI & Abdominal Exam: Soft, Normal Bowel Sounds. absent: Tenderness - Extremities Exam Extremities Exam: Pedal Edema. absent: Calf Tenderness - Neurological Exam Neurological Exam: Alert, Awake, CN II-XII Intact, Oriented x3 - Psychiatric Exam Psychiatric exam: Normal Affect Assessment and Plan - Assessment and Plan (Free Text) Assessment: 55 y/o male with COPD admitted to ICU for COPD exacerbation and bilateral DVT in lower extremity Plan: 1. COPD exacerbation on steriod taper albuterol and home meds resumed antibiotic as ordered continue to monitor 2. Bilateral Acute recurrent lower extremity DVT on therapeutic dosage of lovenox Hematology recommendation appreciated awaiting caogulation work up results will hold Eliqus 3. Lower extremity edema echo - shows mild pulmonary hypertension 4. Diet- heart healthy <Darryn,Jj K - Last Filed: 04/28/16 12:46> Objective - Vital Signs/Intake and Output Vital Signs (last 24 hours): Temp Pulse Resp BP Pulse Ox 97.8 F 82 24 149/97 H 99 04/28/16 08:00 04/28/16 10:23 04/28/16 08:00 04/28/16 10:23 04/28/16 08:00 - Medications Medications: Current Medications Amlodipine Besylate (Norvasc) 10 mg PO DAILY [facility] Last Admin: 04/28/16 10:23 Dose: 10 mg Enoxaparin Sodium (Lovenox) 80 mg SC Q12 [facility] PRN Reason: Protocol Last Admin: 04/28/16 10:20 Dose: 80 mg Levofloxacin/Dextrose (Levaquin 500mg) 100 mls @ 100 mls/hr IVPB DAILY [facility] Last Admin: 04/28/16 10:21 Dose: 100 mls/hr Methylprednisolone 60 mg/ (Sodium Chloride) 50.96 mls @ 100 mls/hr IVPB Q12 [facility] Stop: 04/28/16 23:59 Last Admin: 04/28/16 10:39 Dose: 100 mls/hr Methylprednisolone 40 mg/ (Sodium Chloride) 50 mls @ 100 mls/hr IVPB Q12 [facility] Stop: 04/30/16 23:59 Fluticasone/Salmeterol (Advair Diskus 100/50) 1 puff INH RBID [facility] Last Admin: 04/28/16 10:21 Dose: 1 puff Tiotropium [place] (Spiriva) 18 mcg IH DAILY [facility] Last Admin: 04/28/16 10:24 Dose: 18 mcg - Labs Labs: 04/26/16 05:00 04/26/16 05:00 PT 11.5 SECONDS (9.6-11.2) H 04/24/16 20:17 INR 1.11 (0.92-1.08) H 04/24/16 20:17 Assessment and Plan - Assessment and Plan (Free Text) Assessment: Patient was personally seen and examined by me in rounds with residents. Available labs and diagnostic data reviewed. Case, Patient's condition and management plan discussed with residents in rounds. Agree with resident's documentation. Plan: As ordered. Jj Cates MD
[2016-04-29] MEDS ORDERED: methylPREDNISolone 40 MG in Sodium Chloride 0.9% 50 ML IVPB SCH (09:00)
[2016-04-29] MEDS: Enoxaparin 80 mg Syringe SC SCH ×2 (10:10→20:56)
[2016-04-29] MEDS: Fluticasone-Salmeterol 100-50mcg Diskus INH SCH ×2 (10:11→20:56)
[2016-04-29] MEDS: Tiotropium 18 mcg Cap For Inhalation IH SCH ×2 (10:12→16:43)
[2016-04-29] MEDS: methylPREDNISolone 20 MG in Sodium Chloride 0.9% 50 ML IVPB SCH ×2 (12:17→20:55)
[2016-04-30 04:50] LABS: B2 GLYCOPROTEIN I AB(IGA) 10 SAU (<=20); B2 GLYCOPROTEIN I AB(IGG) <9 SGU (<=20); B2 GLYCOPROTEIN I AB(IGM) <9 SMU (<=20); CARDIOLIPIN AB (IGA) <11 APL (<=11)
[2016-04-30 07:55] LABS: HEMATOCRIT 34.9 % (35.0-51.0); MEAN CELL VOLUME 87.1 fl (80.0-94.0); MEAN CORPUSCULAR HEMOGLOBIN 27.3 pg (27.0-31.0); MEAN CORPUSCULAR HGB CONC 31.3 g/dL (33.0-37.0); RED CELL DISTRIBUTION WIDTH 17.8 % (11.5-14.5); WHITE BLOOD COUNT 7.2 K/uL (4.8-10.8)
[2016-04-30 08:15] LABS: ALB/GLOB RATIO 0.9 (1.0-2.1); ALKALINE PHOSPHATASE 67 U/L (38-126); ALT/SGPT 21 U/L (21-72); AST/SGOT 17 U/L (17-59); BILIRUBIN,TOTAL 0.4 mg/dl (0.2-1.3); BLOOD UREA NITROGEN 15 mg/dl (9-20); CARBON DIOXIDE 32 mmol/L (22-30); CHLORIDE 100 mmol/L (98-107); GFR AFRICAN-AMERICAN > 60; GLUCOSE,RANDOM 108 mg/dL (75-110); POTASSIUM 4.2 MMOL/L (3.6-5.0); SODIUM 141 mmol/l (132-148)
[2016-04-30] MEDS: Fluticasone-Salmeterol 100-50mcg Diskus INH SCH ×2 (09:03→20:57)
[2016-04-30] MEDS: Enoxaparin 80 mg Syringe SC SCH ×2 (09:04→20:58)
[2016-04-30] MEDS: Tiotropium 18 mcg Cap For Inhalation IH SCH (09:04)
[2016-04-30] MEDS: methylPREDNISolone 20 MG in Sodium Chloride 0.9% 50 ML IVPB SCH ×2 (10:11→20:58)
[2016-04-30 19:02] VITALS: O2SAT 96
--- NOTE | 2016-05-01 01:49 | CP.PCM.PN ---
Subjective - Date & Time of Evaluation Date of Evaluation: 04/30/16 Time of Evaluation: 13:00 - Subjective Subjective: Feeling better, less leg swelling Objective - Vital Signs/Intake and Output Vital Signs (last 24 hours): Temp Pulse Resp BP Pulse Ox 99.3 F 70 20 138/75 96 04/30/16 17:00 04/30/16 17:00 04/30/16 17:00 04/30/16 17:00 04/30/16 17:00 - Medications Medications: Current Medications Amlodipine Besylate (Norvasc) 10 mg PO DAILY [facility] Last Admin: 04/30/16 09:04 Dose: 10 mg Enoxaparin Sodium (Lovenox) 80 mg SC Q12 [facility] PRN Reason: Protocol Last Admin: 04/30/16 20:58 Dose: 80 mg Levofloxacin/Dextrose (Levaquin 500mg) 100 mls @ 100 mls/hr IVPB DAILY [facility] Last Admin: 04/30/16 09:03 Dose: 100 mls/hr Fluticasone/Salmeterol (Advair Diskus 100/50) 1 puff INH RBID [facility] Last Admin: 04/30/16 20:57 Dose: 1 puff Tiotropium [place] (Spiriva) 18 mcg IH DAILY [facility] Last Admin: 04/30/16 09:04 Dose: 18 mcg - Labs Labs: 04/30/16 05:30 04/30/16 05:30 PT 11.5 SECONDS (9.6-11.2) H 04/24/16 20:17 INR 1.11 (0.92-1.08) H 04/24/16 20:17 - Head Exam Head Exam: ATRAUMATIC - Eye Exam Eye Exam: Normal appearance - ENT Exam ENT Exam: Mucous Membranes Dry - Respiratory Exam Respiratory Exam: NORMAL BREATHING PATTERN - Cardiovascular Exam Cardiovascular Exam: +S1, +S2 - GI/Abdominal Exam GI & Abdominal Exam: Normal Bowel Sounds - Extremities Exam Extremities Exam: Pedal Edema Assessment and Plan (1) Deep vein thrombosis Assessment & Plan: recurrent has IVC filter placed in 2016 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
--- NOTE | 2016-05-01 07:52 | PN ---
DATE: 04/29/2016 The patient seen and examined. Interim events noted. ____ the patient ____ regular medical ____ pat ient is ____ no chest pain or shortness of breath. PHYSICAL EXAMINATION: GENERAL: The patient is in no acute distress. VITAL SIGNS: Stable. HEART: S1, S2 normal, regular. LUNGS: Good bilateral air exchange. ABDOMEN: Soft, nontender. EXTREMITIES: ____ calf swelling, no tenderness, no acute ischemia. CENTRAL NERVOUS SYSTEM: Essentially unchanged. DIAGNOSTIC DATA: Available diagnostic data reviewed. Overall, patient's general medical condition improved; chronic obstructive pulmonary disease exacerba tion seems much better. PLAN: As ordered. Jj Cates MD cc: [id number] TT: 04/29/2016 08:58:47 Confirmation # [id number] Dictation # [id number] doc
[2016-05-01 08:48] VITALS: BP 126/73; PULSE 64; RESP 20; TEMP 98.7
[2016-05-01] MEDS: Fluticasone-Salmeterol 100-50mcg Diskus INH SCH (09:44)
[2016-05-01] MEDS: Tiotropium 18 mcg Cap For Inhalation IH SCH (09:46)
--- NOTE | 2016-05-01 10:06 | PN ---
DATE: 05/01/2016 The patient seen and examined. Interim events noted. The patient feels much better. No chest pain, no shortness of breath. PHYSICAL EXAMINATION: GENERAL: The patient is in no acute distress. VITAL SIGNS: Stable. HEART: S1, S2 normal, regular. LUNGS: Good bilateral air entry. ABDOMEN: Soft, nontender. EXTREMITIES: No edema, no calf swelling, no tenderness, no acute ischemia. CENTRAL NERVOUS SYSTEM: Essentially unchanged. DIAGNOSTIC DATA: Available reviewed. Overall, patient's general medical condition is stable. Physical therapy suggested home discharge. We will discharge patient home. The patient will be followed up by primary care physician at [facility] in [place]. Case and plan discussed with patient, which she understood. Jj Cates MD cc: [id number] TT: 05/01/2016 10:05:21 Confirmation # [id number] Dictation # [id number] en
[2016-05-01 14:50] LABS: PHOSPHATIDYLSERINE AB IGA <20 U/mL (<20); PHOSPHATIDYLSERINE AB IGM <25 U/mL (<25)
== END 2016-05-01 12:39 | disposition home or self-care (01) | DRG 541 ==
LOC: H.ER 19:28 → H.ERHOLD 04-25 01:23 → H.ICU/CCU 04-25 03:17 → OBSVTOIN 04-25 10:55 → H.MEDSURG1 04-28 17:51
PROVIDERS: ADMIT Internal Medicine; ATTEND Internal Medicine
PROC: 3E0234Z Introduction of Serum, Toxoid and Vaccine into Muscle, Percutaneous Approach (ICD-10-PCS; principal; 2016-04-25)
DX: J44.1 Chronic obstructive pulmonary disease with (acute) exacerbation (principal); I82.413 Acute embolism and thrombosis of femoral vein, bilateral; I10 Essential (primary) hypertension; I82.811 Embolism and thrombosis of superficial veins of right lower extremity; J44.0 Chronic obstructive pulmonary disease with (acute) lower respiratory infection; F17.210 Nicotine dependence, cigarettes, uncomplicated; J20.9 Acute bronchitis, unspecified; J45.909 Unspecified asthma, uncomplicated; Z23 Encounter for immunization; Z86.711 Personal history of pulmonary embolism; Z86.718 Personal history of other venous thrombosis and embolism; M19.90 Unspecified osteoarthritis, unspecified site; D63.8 Anemia in other chronic diseases classified elsewhere

== ENCOUNTER 2016-05-17 20:36 | Observation (INO) | payer MEDICAID ==
[2016-05-17 20:37] VITALS: BMI 24.3
[2016-05-17] MEDS ORDERED: DiphenhydrAMINE 50 mg/ml Inj ONE (20:38)
[2016-05-17] MEDS ORDERED: Albuterol 0.083% Inhal Sol (2.5 mg/3 mL) UD ONE ×3 (20:43→21:10)
[2016-05-17] MEDS ORDERED: Ipratropium 0.02% Inhal Soln (0.5 mg/2.5 ml) UD IH ONE ×2 (20:43→21:03)
[2016-05-17] MEDS ORDERED: Albuterol 0.083% Inhal Sol (2.5 mg/3 mL) UD INH STA ×2 (20:49→20:50)
[2016-05-17] MEDS ORDERED: Ipratropium 0.02% Inhal Soln (0.5 mg/2.5 ml) UD IH STA ×2 (20:50→20:51)
[2016-05-17] MEDS ORDERED: DiphenhydrAMINE 50 mg/ml Inj IM STA (21:09)
[2016-05-17 21:22] LABS: ABG ALLEN TEST YES; ARTERIAL BLOOD GAS HCO3 25.8 mmol/L (21-28); ARTERIAL BLOOD GAS PH 7.26 (7.35-7.45); ARTERIAL BLOOD GAS PO2 84 mm/Hg (80-100)
[2016-05-17 21:29] LABS: ALCOHOL SERUM < 10 mg/dl (0-10); BLOOD UREA NITROGEN 23 mg/dl (9-20); CALCIUM 9.1 mg/dL (8.4-10.2); CARBON DIOXIDE 23 mmol/L (22-30); CHLORIDE 100 mmol/L (98-107); GFR AFRICAN-AMERICAN > 60; GLUCOSE,RANDOM 124 mg/dL (75-110); POTASSIUM 4.4 MMOL/L (3.6-5.0); SODIUM 143 mmol/l (132-148)
--- NOTE | 2016-05-17 21:37 | ED PDOC ---
HPI: Psych/Substance Abuse Time Seen by Provider: 05/17/16 20:49 Chief Complaint (Nursing): Substance Abuse Chief Complaint (Provider): Substance abuse ED Caveat: Acuity of Condition History Per: EMS History/Exam Limitations: clinical condition Current Symptoms Are (Timing): Still Present Additional History Per: EMS Additional Complaint(s): 55 year old male patient with a pertinent medical history of COPD is brought to the ED by EMS with an altered mental status or possibly under the influence. He arrives combative, but not answering questions, not following commands, acting aggressively and threatening staff. Unable to obtain full HPI secondary to patient's clinical condition. Past Medical History Reviewed: Historical Data, Nursing Documentation, Vital Signs - Medical History PMH: Arthritis, Asthma, Bronchitis, COPD, HTN, Pulmonary Embolism Denies: Alzheimer's Disease, Anemia, Atrial Fibrillation, CAD, Cardia Arrhythmia, CHF, Dementia, Emphysema, HIV, Hypercholesterolemia, Hyperthyroidism , Hypothyroidism, Kidney Stones, Migraine, Mitral Valve Prolapse, Multiple Sclerosis, Parkinson's Disease, Peripheral Edema, Pneumonia, Chronic Kidney Disease, Seizures, Sickle Cell Disease, Sleep Apnea, TIA - Surgical History Surgical History: Hernia Repair Denies: Pacemaker - Family History Family History: States: Unknown Family Hx - Immunization History Hx Tetanus Toxoid Vaccination: No Hx Influenza Vaccination: Yes Hx Pneumococcal Vaccination: Yes - Home Medications Home Medications: Ambulatory Orders Medication Instructions Recorded amLODIPine [Norvasc] 5 mg PO DAILY #0 tab 02/23/15 Fluticasone/Salmeterol 100/50 1 puff INH RQ12 #0 puff 08/11/15 [Advair Diskus 100/50] Tiotropium [Spiriva] 18 mcg IH DAILY #0 cap 08/11/15 Apixaban [Eliquis] 5 mg PO BID 04/25/16 Levofloxacin [Levaquin] 500 mg PO DAILY #10 tablet 05/01/16 predniSONE [predniSONE Tab] 5 mg PO DAILY #29 tab 05/01/16 predniSONE [predniSONE Tab] 60 mg PO DAILY #9 tab 05/18/16 - Allergies Allergies/Adverse Reactions: Allergies Allergy/AdvReac Type Severity Reaction Status Date / Time No Known Allergies Allergy Verified 02/14/16 23:38 Review of Systems Neurological: Positive for: Altered Mental Status Physical Exam - Reviewed Nursing Documentation Reviewed: Yes Vital Signs Reviewed: Yes - Physical Exam Appears: Positive for: Non-toxic, No Acute Distress Head Exam: Positive for: ATRAUMATIC, NORMOCEPHALIC Skin: Positive for: Normal Color, Warm, Dry Eye Exam: Positive for: Other (pupils are 1-2mm in diameter) Respiratory: Positive for: Wheezing (bilaterally) Neurologic/Psych: Positive for: Alert. Negative for: Oriented (patient is refusing to answer questions regarding person, place, and time.) - Laboratory Results Result Diagrams: 05/17/16 20:55 05/17/16 20:55 Medical Decision Making Medical Decision Makin:49 Initial impression: 55 year old male under the influence. Differential diagnoses include but are not limited to drug use vs. alcohol intoxication vs. CO2 narcosis. Initial plan: * ABG shock panel * EKG * acetaminophen * alcohol serum * BMP * brug screen, urinary * salicylate * troponin I * udip * CBC * XRay chest portable * albuterol .083% inhal soln: 2.5mg INH: 3x times * ativan 2mg IM * atrovent .5mg IH * benadryl 50mg IM * haldol 5mg IM * solumedrol 125 mg IVP * 1:1 observation * peak flow pre post treatment (3x times) 21:03 Patient is placed into ED observation secondary to clinical condition. See ED observation note for further updates. 6;25 Patient is awake, alert, oriented x3, and no difficulty breathing. advised to follow up with PMD in 1-2 days. Patient feels better. Discussed results and plan with patient who expresses understanding. Counseling was provided regarding the diagnosis and prognosis. All questions answered and there is agreement with the plan to discharge home with instructions. Patient stable for discharge. Return if symptoms persist or worsen. Scribe Attestation: Documented by Ryann Santos, acting as a scribe for Humberto Patino MD. Provider Scribe Attestation: All medical record entries made by the Marysol were at my direction and personally dictated by me. I have reviewed the chart and agree that the record accurately reflects my personal performance of the history, physical exam, medical decision making, and the department course for this patient. I have also personally directed, reviewed, and agree with the discharge instructions and disposition. ED OBSERVATION Date of observation admission: 05/17/16 Time of observation admission: 21:03 - Observation admission statement Patient is being placed in observation because:: secondary to clinical condition - Goals of Observation Goals of observation are:: Patient is being placed into ED observation pending labs, reevaluation, and final disposition. - Progress Note Progress Note: 05/17/16 23:32 Patient is a sleep and comfortable. Vital signs are stable Disposition - Clinical Impression Clinical Impression: Asthma, Drug use - Patient ED Disposition Is Patient to be Admitted: No Counseled Patient/Family Regarding: Studies Performed, Diagnosis, Need For Followup - Disposition Disposition: Routine/Home Disposition Time: 06:25 Condition: IMPROVED
[2016-05-17 21:45] LABS: BASO % 0.3 % (0.0-2.0); EOS # 0.1 K/uL (0.0-0.7); EOS % 0.7 % (0.0-4.0); HEMATOCRIT 37.6 % (35.0-51.0); LYMPH % 11.4 % (20.0-40.0); MEAN CELL VOLUME 89.2 fl (80.0-94.0); MEAN CORPUSCULAR HEMOGLOBIN 27.4 pg (27.0-31.0); MEAN CORPUSCULAR HGB CONC 30.7 g/dL (33.0-37.0); MEAN PLATELET VOLUME 9.7 fl (7.2-11.7); MONO # 0.4 K/uL (0.0-0.8); MONO % 4.4 % (0.0-10.0); NEUT # 7.4 K/uL (1.8-7.0); NEUT % 83.2 % (50.0-75.0); WHITE BLOOD COUNT 8.9 K/uL (4.8-10.8)
[2016-05-18 01:23] VITALS: RESP 16
[2016-05-18 04:37] VITALS: BP 138/88; PULSE 74; TEMP 97.8; O2SAT 97
--- NOTE | 2016-05-18 10:00 | RAD ---
HISTORY: wheezing COMPARISON: 04/24/2016 FINDINGS: LUNGS: No active pulmonary disease. PLEURA: No significant pleural effusion identified, no pneumothorax apparent. CARDIOVASCULAR: Normal. OSSEOUS STRUCTURES: No significant abnormalities. VISUALIZED UPPER ABDOMEN: Normal. OTHER FINDINGS: None. IMPRESSION: No active disease.
--- NOTE | 2016-05-18 12:27 | CARD ---
APPROVED REPORT EKG Measurement Heart [id number] CT [id number] <Conclusion> Sinus tachycardia Possible Left atrial enlargement Left anterior fascicular block Left ventricular hypertrophy Abnormal ECG
== END 2016-05-18 06:27 | disposition home or self-care (01) ==
LOC: H.ER 20:36 → H.EROBSV 21:03
PROVIDERS: ADMIT Emergency Medicine; ATTEND Emergency Medicine
DX: F19.90 Other psychoactive substance use, unspecified, uncomplicated (principal); J45.909 Unspecified asthma, uncomplicated; J44.9 Chronic obstructive pulmonary disease, unspecified; M19.90 Unspecified osteoarthritis, unspecified site; Z86.711 Personal history of pulmonary embolism; I10 Essential (primary) hypertension

== ENCOUNTER 2016-06-19 20:27 | Emergency (ER) | payer MEDICAID ==
[2016-06-19 20:28] VITALS: BMI 24.3
[2016-06-19 20:37] VITALS: BP 151/93; PULSE 92; RESP 19; TEMP 98.7; O2SAT 98
[2016-06-19] MEDS ORDERED: Albuterol-Ipratrop 3 mg / 0.5 (3 ml) UD INH STA (22:21)
--- NOTE | 2016-06-19 22:22 | ED PDOC ---
HPI: SOB/CHF/COPD Time Seen by Provider: 06/19/16 21:00 Chief Complaint (Nursing): Shortness Of Breath Chief Complaint (Provider): Shortness of Breath History Per: Patient History/Exam Limitations: no limitations Onset/Duration Of Symptoms: Days (1 day) Current Symptoms Are (Timing): Still Present Initiating Event: Upper Respiratory Illness (PMHx of COPD, asthma, and bronchitis) Context: COPD exacerbation Current Respiratory Medications: See Home Med List Severity: Moderate Associated Symptoms: Other (dry cough; denies vomiting). denies: Fever, Bloody Cough, Productive Cough Additional Complaint(s): Sammy Bird is a 55 year old male, with multiple visits to the ER with a past medical history of chronic obstructive pulmonary disease, asthma, bronchitis, pulmonary embolism, and hypertension, who presents to the emergency department with complaints of shortness of breath, that the patient began experiencing one day ago. Associated dry cough is currently present. Denies a fever or vomiting. PMD: none specified Past Medical History Reviewed: Historical Data, Nursing Documentation, Vital Signs Vital Signs: Last Vital Signs Temp 98.7 F 06/19/16 20:33 Pulse 92 H 06/19/16 20:33 Resp 19 06/19/16 21:50 BP 151/93 H 06/19/16 20:33 Pulse Ox 98 06/20/16 05:10 - Medical History PMH: Arthritis, Asthma, Bronchitis, COPD, HTN, Hypercholesterolemia, Pulmonary Embolism Denies: Alzheimer's Disease, Anemia, Atrial Fibrillation, CAD, Cardia Arrhythmia, CHF, Dementia, Emphysema, HIV, Hyperthyroidism, Hypothyroidism, Kidney Stones, Migraine, Mitral Valve Prolapse, Multiple Sclerosis, Parkinson's Disease, Peripheral Edema, Pneumonia, Chronic Kidney Disease, Seizures, Sickle Cell Disease, Sleep Apnea, TIA - Surgical History Surgical History: Hernia Repair Denies: Pacemaker - Family History Family History: States: No Known Family Hx - Social History Current smoker - smoking cessation education provided: No Alcohol: None Drugs: Denies - Immunization History Hx Tetanus Toxoid Vaccination: Yes Hx Influenza Vaccination: Yes Hx Pneumococcal Vaccination: Yes - Home Medications Home Medications: Ambulatory Orders Medication Instructions Recorded amLODIPine [Norvasc] 5 mg PO DAILY #0 tab 02/23/15 Fluticasone/Salmeterol 100/50 1 puff INH RQ12 #0 puff 08/11/15 [Advair Diskus 100/50] Tiotropium [Spiriva] 18 mcg IH DAILY #0 cap 08/11/15 Apixaban [Eliquis] 5 mg PO BID 04/25/16 predniSONE [predniSONE Tab] 5 mg PO DAILY #29 tab 05/01/16 predniSONE [predniSONE Tab] 60 mg PO DAILY #9 tab 05/18/16 Amoxicillin/Clavulanate [Augmentin 1 tab PO BID #10 tab 05/24/16 875 MG-125 MG] Lactobacillus Acidophilus [Bacid 1 cap PO BID #10 cap 05/24/16 Acidophilus] Pantoprazole [Protonix] 40 mg PO DAILY #30 ect 05/24/16 Albuterol HFA [Ventolin HFA 90 1 - 2 puff IH Q4H PRN #1 bottle 06/20/16 mcg/actuation (8 g)] - Allergies Allergies/Adverse Reactions: Allergies Allergy/AdvReac Type Severity Reaction Status Date / Time No Known Allergies Allergy Verified 05/20/16 13:24 Review of Systems ROS Statement: Except As Marked, All Systems Reviewed And Found Negative Constitutional: Negative for: Fever Respiratory: Positive for: Cough, Shortness of Breath. Negative for: Hemoptysis , Sputum Gastrointestinal: Negative for: Vomiting Physical Exam - Reviewed Nursing Documentation Reviewed: Yes Vital Signs Reviewed: Yes - Physical Exam Appears: Positive for: Well, Non-toxic, No Acute Distress Head Exam: Positive for: ATRAUMATIC, NORMOCEPHALIC Skin: Positive for: Normal Color, Warm, Dry Cardiovascular/Chest: Positive for: Regular Rate, Rhythm. Negative for: Murmur Respiratory: Positive for: Normal Breath Sounds, Wheezing. Negative for: Decreased Breath Sounds, Respiratory Distress Gastrointestinal/Abdominal: Positive for: Normal Exam, Soft. Negative for: Tenderness Back: Positive for: Normal Inspection. Negative for: L CVA Tenderness, R CVA Tenderness Extremity: Positive for: Normal ROM. Negative for: Tenderness, Swelling Neurologic/Psych: Positive for: Alert, Oriented - Laboratory Results Result Diagrams: 06/19/16 22:15 06/19/16 22:15 - ECG O2 Sat by Pulse Oximetry: 98 (RA) Pulse Ox Interpretation: Normal Medical Decision Making Medical Decision Makin:48 Initial Impression: short of breath, rule out COPD exacerbation Initial Plan: * CBC * CMP * CXR * Albuterol/Ipratropium 3 ml INH * predniSONE 50 mg PO * Peak Flow Pre/Post Treatment * Reevaluation 0316: CXR shows no infiltrate. Patient feels improved after treatment and is stable for d/c. Instructed to f/u w/ his primary doctor in 1-2 days and return to the ED with any worsening or concerning symptoms. wbc count and no fever. Scribe Attestation: Documented by Quang Suarez, acting as a scribe for Ethel Sauer MD. Provider Scribe Attestation: All medical record entries made by the Scribe were at my direction and personally dictated by me. I have reviewed the chart and agree that the record accurately reflects my personal performance of the history, physical exam, medical decision making, and the department course for this patient. I have also personally directed, reviewed, and agree with the discharge instructions and disposition. Disposition - Clinical Impression Clinical Impression: COPD (chronic obstructive pulmonary disease) - Patient ED Disposition Is Patient to be Admitted: No Counseled Patient/Family Regarding: Studies Performed, Diagnosis, Need For Followup - Disposition Referrals: [facility] [Outside] [facility] [Outside] Disposition: Routine/Home Disposition Time: 03:18 Condition: IMPROVED Additional Instructions: follow up with your primary doctor in1 -2 days return to the ED with any worsening or concerning symptoms. Prescriptions: Albuterol HFA [Ventolin HFA 90 mcg/actuation (8 g)] 1 - 2 puff IH Q4H PRN #1 bottle PRN Reason: Wheezing Instructions: COPD (Chronic Obstructive Pulmonary Disease) (ED)
[2016-06-19 22:49] LABS: BASO # 0.1 K/uL (0.0-0.2); BASO % 1.1 % (0.0-2.0); EOS # 0.6 K/uL (0.0-0.7); HEMATOCRIT 34.4 % (35.0-51.0); LYMPH # 1.5 K/uL (1.0-4.3); LYMPH % 25.9 % (20.0-40.0); MEAN CELL VOLUME 86.7 fl (80.0-94.0); MEAN CORPUSCULAR HGB CONC 32.3 g/dL (33.0-37.0); MEAN PLATELET VOLUME 8.4 fl (7.2-11.7); MONO # 0.6 K/uL (0.0-0.8); MONO % 10.5 % (0.0-10.0); NEUT # 2.9 K/uL (1.8-7.0); NEUT % 51.5 % (50.0-75.0); NRBC % 0.1 % (0.0-0.0); RED CELL DISTRIBUTION WIDTH 20.3 % (11.5-14.5); WHITE BLOOD COUNT 5.6 K/uL (4.8-10.8)
[2016-06-19 22:56] LABS: ALB/GLOB RATIO 1.3 (1.0-2.1); ALKALINE PHOSPHATASE 68 U/L (38-126); ALT/SGPT 25 U/L (21-72); AST/SGOT 29 U/L (17-59); BILIRUBIN,TOTAL 0.4 mg/dl (0.2-1.3); BLOOD UREA NITROGEN 14 mg/dl (9-20); CALCIUM 8.9 mg/dL (8.4-10.2); CARBON DIOXIDE 24 mmol/L (22-30); CHLORIDE 99 mmol/L (98-107); GFR AFRICAN-AMERICAN > 60; GLUCOSE,RANDOM 126 mg/dL (75-110); SODIUM 136 mmol/l (132-148)
[2016-06-19 22:58] LABS: POTASSIUM 4.5 MMOL/L (3.6-5.0)
--- NOTE | 2016-06-20 12:23 | RAD ---
HISTORY: sob COMPARISON: No prior. FINDINGS: LUNGS: No focal consolidation however there appears to be mild increased central vascular markings suggesting developing and or mild chronic compensated pulmonary venous congestion. . Clinic correlation recommended. PLEURA: No significant pleural effusion identified, no pneumothorax apparent. CARDIOVASCULAR: Normal. OSSEOUS STRUCTURES: Minor multilevel degenerative spondylosis of the thoracic spine. Mild DJD both shoulder girdles. VISUALIZED UPPER ABDOMEN: Normal. OTHER FINDINGS: None. IMPRESSION: No focal consolidation however there appears to be mild increased central vascular markings suggesting developing and or mild chronic compensated pulmonary venous congestion. . Clinic correlation recommended. Note this report was placed in [place] review folder for followup
== END 2016-06-20 05:28 | disposition home or self-care (01) ==
LOC: H.ER 20:27
DX: J44.9 Chronic obstructive pulmonary disease, unspecified (principal); R60.0 Localized edema

== ENCOUNTER 2016-07-15 23:07 | Emergency (ER) | payer MEDICAID ==
[2016-07-15 23:08] VITALS: BMI 24.3
[2016-07-15 23:22] VITALS: BP 141/98; PULSE 102; TEMP 98.2
[2016-07-15 23:34] VITALS: RESP 16; O2SAT 98
--- NOTE | 2016-07-15 23:38 | ED PDOC ---
HPI: SOB/CHF/COPD Time Seen by Provider: 07/15/16 23:36 Chief Complaint (Nursing): Shortness Of Breath Chief Complaint (Provider): shortness of breath History Per: Patient Additional Complaint(s): 55-year-old male with history of COPD presents with shortness of breath that started earlier today. Patient admits to snorting heroin today which he usually snorts daily. He denies use of any other drugs and he denies any alcohol use. Patient denies any chest pain. He uses an inhaler at home that this has not helped with the shortness of breath. He denies recent travel. Patient currently lives at the in [place]. Past Medical History Reviewed: Historical Data, Nursing Documentation, Vital Signs Vital Signs: Last Vital Signs Temp 98.2 F 07/15/16 23:17 Pulse 102 H 07/15/16 23:17 Resp 16 07/15/16 23:32 BP 141/98 H 07/15/16 23:17 Pulse Ox 98 07/16/16 00:59 - Medical History PMH: Arthritis, Asthma, COPD, HTN, Hypercholesterolemia - Surgical History Surgical History: Hernia Repair Other surgeries: multiple abdominal surgeries - Family History Family History: States: No Known Family Hx - Living Arrangements Living Arrangements: Other (Lives at in [place]) - Social History Current smoker - smoking cessation education provided: Yes (1/2 ppd) Alcohol: Social Drugs: Opiates (snorts heroin) - Home Medications Home Medications: Ambulatory Orders Medication Instructions Recorded amLODIPine [Norvasc] 5 mg PO DAILY #0 tab 02/23/15 Fluticasone/Salmeterol 100/50 1 puff INH RQ12 #0 puff 08/11/15 [Advair Diskus 100/50] Tiotropium [Spiriva] 18 mcg IH DAILY #0 cap 08/11/15 Apixaban [Eliquis] 5 mg PO BID 04/25/16 predniSONE [predniSONE Tab] 5 mg PO DAILY #29 tab 05/01/16 predniSONE [predniSONE Tab] 60 mg PO DAILY #9 tab 05/18/16 Amoxicillin/Clavulanate [Augmentin 1 tab PO BID #10 tab 05/24/16 875 MG-125 MG] Lactobacillus Acidophilus [Bacid 1 cap PO BID #10 cap 05/24/16 Acidophilus] Pantoprazole [Protonix] 40 mg PO DAILY #30 ect 05/24/16 Albuterol HFA [Ventolin HFA 90 1 - 2 puff IH Q4H PRN #1 bottle 06/20/16 mcg/actuation (8 g)] Albuterol HFA [Ventolin HFA 90 1 puff IH ASDIR #1 unit 07/16/16 mcg/actuation (8 g)] Prednisone 50 mg PO DAILY #5 tablet 07/16/16 - Allergies Allergies/Adverse Reactions: Allergies Allergy/AdvReac Type Severity Reaction Status Date / Time No Known Allergies Allergy Verified 05/20/16 13:24 Curb-65 Severity Score - CURB-65 Severity Score Confusion: No Bun >19mg/dl (>7mmol/L): No Respiratory Rate greater than/equal to 30: No Systolic BP <90 or Diastolic BP less than/equal 60mmHg: No Age >64: No Curb-65 Score: 0 Percentage 30-day mortality: 0.6% Wells Criteria for PE - Wells Criteria for Pulmonary Embolism Clinical Signs and Symptoms of DVT: No P.E is #1 Diagnosis, or Equally Likely: No Heart Rate >100: No Immobilization at least 3 days;Surgery previous 4 weeks: No Previous, objectively diagnosed PE or DVT: No Hemoptysis: No Malignancy w/treatment within 6 months, or palliative: No Total Score: 0 Review of Systems ROS Statement: Except As Marked, All Systems Reviewed And Found Negative Constitutional: Negative for: Fever, Chills Cardiovascular: Negative for: Chest Pain Respiratory: Positive for: Cough, Shortness of Breath, SOB with Exertion, Wheezing Gastrointestinal: Negative for: Nausea, Vomiting Neurological: Negative for: Headache, Dizziness Physical Exam - Reviewed Nursing Documentation Reviewed: Yes Vital Signs Reviewed: Yes - Physical Exam Appears: Positive for: Well, Non-toxic, No Acute Distress Skin: Negative for: Rash Eye Exam: Positive for: Normal appearance, EOMI, PERRL Cardiovascular/Chest: Positive for: Regular Rate, Rhythm Respiratory: Positive for: Rhonchi, Wheezing. Negative for: Crackles, Rales, Respiratory Distress Extremity: Positive for: Pedal Edema (bilaterally) Neurologic/Psych: Positive for: Alert, Oriented - Laboratory Results Result Diagrams: 07/16/16 00:15 07/16/16 00:15 - ECG Interpretation Of ECG: Sinus tach 102, LVH, reviewed by PA and ED attending O2 Sat by Pulse Oximetry: 98 Pulse Ox Interpretation: Normal - Other Rad CXR X-Ray: Interpreted by Me, Viewed By Me X-Ray Interpretation: poor inspiratory effort, rotated, no acute finding Nebulizer Treatments/Peak Flow - Duonebs Number of Bronchodilator Doses given?: 3 (duoneb) - Steroid Treatment Steroid: IV (125 mg solumedrol) - Clinical Response Clinical Response: Improved Medical Decision Making Medical Decision Makin55 year old with shortness of breath, history of COPD Plan: CBC CMP Trop BNP CXR EKG Duoneb x 3 IV solumedrol Patient reports marked improvement after meds were given. Patient aware of all diagnostic testing results, all questions answered. Prescription given for Ventolin inhaler and prednisone. Patient was referred to clinic for follow up. Patient was counseled regarding importance of smoking cessation. Disposition - Clinical Impression Clinical Impression: COPD with exacerbation - Patient ED Disposition Is Patient to be Admitted: No Counseled Patient/Family Regarding: Studies Performed, Diagnosis, Need For Followup, Rx Given, Smoking Cessation - Disposition Referrals: [facility] [Outside] Disposition: Routine/Home Disposition Time: 01:54 Condition: IMPROVED Additional Instructions: Take prescription medications as directed. Follow-up in 2-3 days with clinic. Prescriptions: Albuterol HFA [Ventolin HFA 90 mcg/actuation (8 g)] 1 puff IH ASDIR #1 unit Prednisone 50 mg PO DAILY #5 tablet Instructions: COPD (Chronic Obstructive Pulmonary Disease) (ED) Results - Lab Results Lab Results: 07/16/16 07/16/16 00:15 00:15 WBC 6.2 RBC 4.17 L Hgb 11.6 L Hct 35.6 MCV 85.5 MCH 27.8 MCHC 32.5 L RDW 19.4 H Plt Count 252 MPV 8.2 Neut % (Auto) 51.6 Lymph % (Auto) 21.1 Wise % (Auto) 7.9 Eos % (Auto) 18.5 H Baso % (Auto) 0.9 Neut # 3.2 Lymph # 1.3 Wise # 0.5 Eos # 1.2 H Baso # 0.1 Sodium 138 Potassium 4.4 Chloride 99 Carbon Dioxide 27 Anion Gap 16 BUN 16 Creatinine 1.0 Est GFR ( Amer) > 60 Est GFR (Non-Af Amer) > 60 Random Glucose 108 Calcium 9.3 Total Bilirubin 0.6 AST 31 ALT 25 Alkaline Phosphatase 63 Troponin I < 0.0120 NT-Pro-B Natriuret Pep 94.7 Total Protein 8.3 H Albumin 4.5 Globulin 3.7 Albumin/Globulin Ratio 1.2
[2016-07-15] MEDS ORDERED: Albuterol-Ipratrop 3 mg / 0.5 (3 ml) UD INH STA (23:39)
[2016-07-15] MEDS ORDERED: Albuterol-Ipratrop 3 mg / 0.5 (3 ml) UD ONE (23:55)
[2016-07-16 00:32] LABS: ALB/GLOB RATIO 1.2 (1.0-2.1); ALKALINE PHOSPHATASE 63 U/L (38-126); ALT/SGPT 25 U/L (21-72); AST/SGOT 31 U/L (17-59); BILIRUBIN,TOTAL 0.6 mg/dl (0.2-1.3); BLOOD UREA NITROGEN 16 mg/dl (9-20); CALCIUM 9.3 mg/dL (8.4-10.2); CARBON DIOXIDE 27 mmol/L (22-30); GFR AFRICAN-AMERICAN > 60; GLUCOSE,RANDOM 108 mg/dL (75-110); POTASSIUM 4.4 MMOL/L (3.6-5.0); SODIUM 138 mmol/l (132-148); TOTAL PROTEIN 8.3 G/DL (6.3-8.2)
[2016-07-16 00:34] LABS: CHLORIDE 99 mmol/L (98-107)
[2016-07-16 00:46] LABS: BASO # 0.1 K/uL (0.0-0.2); BASO % 0.9 % (0.0-2.0); EOS # 1.2 K/uL (0.0-0.7); EOS % 18.5 % (0.0-4.0); HEMATOCRIT 35.6 % (35.0-51.0); LYMPH # 1.3 K/uL (1.0-4.3); LYMPH % 21.1 % (20.0-40.0); MEAN CELL VOLUME 85.5 fl (80.0-94.0); MEAN CORPUSCULAR HEMOGLOBIN 27.8 pg (27.0-31.0); MEAN CORPUSCULAR HGB CONC 32.5 g/dL (33.0-37.0); MEAN PLATELET VOLUME 8.2 fl (7.2-11.7); MONO # 0.5 K/uL (0.0-0.8); MONO % 7.9 % (0.0-10.0); NEUT # 3.2 K/uL (1.8-7.0); NEUT % 51.6 % (50.0-75.0); NRBC % 0.1 % (0.0-0.0); RED CELL DISTRIBUTION WIDTH 19.4 % (11.5-14.5); WHITE BLOOD COUNT 6.2 K/uL (4.8-10.8)
--- NOTE | 2016-07-16 10:51 | RAD ---
HISTORY: clear COMPARISON: No prior. FINDINGS: LUNGS: No active pulmonary disease. PLEURA: No significant pleural effusion identified, no pneumothorax apparent. CARDIOVASCULAR: Normal. OSSEOUS STRUCTURES: No significant abnormalities. VISUALIZED UPPER ABDOMEN: Normal. OTHER FINDINGS: None. IMPRESSION: No active disease.
--- NOTE | 2016-07-16 14:53 | CARD ---
APPROVED REPORT EKG Measurement Heart [id number] <Conclusion> Sinus tachycardia Left anterior fascicular block Moderate voltage criteria for LVH, may be normal variant Abnormal ECG
== END 2016-07-16 02:22 | disposition home or self-care (01) ==
LOC: H.ER 23:07
DX: J44.1 Chronic obstructive pulmonary disease with (acute) exacerbation (principal); F17.200 Nicotine dependence, unspecified, uncomplicated

== ENCOUNTER 2016-08-11 20:47 | Observation (INO) | payer MEDICAID ==
[2016-08-11 20:47] VITALS: BMI 24.3
[2016-08-11 21:04] VITALS: BP 126/79; PULSE 90; RESP 18; TEMP 98.9; O2SAT 99
[2016-08-11] MEDS ORDERED: Sodium Chloride 0.9% 1,000 ML IV STA (22:00)
--- NOTE | 2016-08-11 22:01 | ED PDOC ---
HPI: Abdomen Time Seen by Provider: 08/11/16 21:09 Chief Complaint (Nursing): GI Problem Chief Complaint (Provider): Abdominal pain History Per: Patient Additional Complaint(s): pt is a 55 y/o male with history of COPD and bilateral DVT and PE presents to ED for evaluation of nausea and vomiting x 5 episodes today. No fever or chills., no associated diarrhea. Patient has diffuse abdominal pain. Past Medical History Reviewed: Historical Data, Nursing Documentation, Vital Signs Vital Signs: Last Vital Signs Temp 98.9 F 08/11/16 20:59 Pulse 90 08/11/16 20:59 Resp 18 08/11/16 20:59 BP 126/79 08/11/16 20:59 Pulse Ox 99 08/12/16 05:28 - Medical History PMH: Arthritis, Asthma, Bronchitis, COPD, HTN, Hypercholesterolemia, Pulmonary Embolism Denies: Alzheimer's Disease, Anemia, Atrial Fibrillation, Cardia Arrhythmia, CHF, Dementia, Emphysema, HIV, Hyperthyroidism, Hypothyroidism, Kidney Stones, Migraine, Mitral Valve Prolapse, Multiple Sclerosis, Parkinson's Disease, Peripheral Edema, Pneumonia, Chronic Kidney Disease, Seizures, Sickle Cell Disease, Sleep Apnea, TIA - Surgical History Surgical History: Hernia Repair Denies: Pacemaker - Family History Family History: States: No Known Family Hx - Immunization History Hx Tetanus Toxoid Vaccination: Yes Hx Influenza Vaccination: Yes Hx Pneumococcal Vaccination: Yes - Home Medications Home Medications: Ambulatory Orders Medication Instructions Recorded amLODIPine [Norvasc] 5 mg PO DAILY #0 tab 02/23/15 Fluticasone/Salmeterol 100/50 1 puff INH RQ12 #0 puff 08/11/15 [Advair Diskus 100/50] Tiotropium [Spiriva] 18 mcg IH DAILY #0 cap 08/11/15 Apixaban [Eliquis] 5 mg PO BID 04/25/16 predniSONE [predniSONE Tab] 5 mg PO DAILY #29 tab 05/01/16 predniSONE [predniSONE Tab] 60 mg PO DAILY #9 tab 05/18/16 Amoxicillin/Clavulanate [Augmentin 1 tab PO BID #10 tab 05/24/16 875 MG-125 MG] Lactobacillus Acidophilus [Bacid 1 cap PO BID #10 cap 05/24/16 Acidophilus] Pantoprazole [Protonix] 40 mg PO DAILY #30 ect 05/24/16 Albuterol HFA [Ventolin HFA 90 1 - 2 puff IH Q4H PRN #1 bottle 06/20/16 mcg/actuation (8 g)] Albuterol HFA [Ventolin HFA 90 1 puff IH ASDIR #1 unit 07/16/16 mcg/actuation (8 g)] Prednisone 50 mg PO DAILY #5 tablet 07/16/16 Ondansetron ODT [Zofran ODT] 4 mg PO Q6 PRN #10 odt 08/12/16 - Allergies Allergies/Adverse Reactions: Allergies Allergy/AdvReac Type Severity Reaction Status Date / Time No Known Allergies Allergy Verified 05/20/16 13:24 Review of Systems ROS Statement: Except As Marked, All Systems Reviewed And Found Negative Gastrointestinal: Positive for: Nausea, Vomiting, Abdominal Pain Physical Exam - Reviewed Nursing Documentation Reviewed: Yes Vital Signs Reviewed: Yes - Physical Exam Appears: Positive for: Well, Non-toxic, No Acute Distress Head Exam: Positive for: ATRAUMATIC, NORMAL INSPECTION, NORMOCEPHALIC Skin: Positive for: Normal Color, Warm, DRY Eye Exam: Positive for: EOMI, Normal appearance, PERRL ENT: Positive for: Normal ENT Inspection Neck: Positive for: Normal, Painless ROM Cardiovascular/Chest: Positive for: Regular Rate, Rhythm Respiratory: Positive for: CNT, Normal Breath Sounds Gastrointestinal/Abdominal: Positive for: Normal Exam, Bowel Sounds, Soft Back: Positive for: Normal Inspection Extremity: Positive for: Normal ROM Neurologic/Psych: Positive for: Alert, Oriented - ECG O2 Sat by Pulse Oximetry: 99 Medical Decision Making Medical Decision Making: Diagnostics ordered, multiple ED RNs unable to get blood/line on Pt pt refusing any further sticks, asking to sleep Zofran given IM. Pt remains asleep in ED throughout the night, stable for dc in am after waking up and reporting feeling better. abdomen remains soft non tender and non distended Disposition - Clinical Impression Clinical Impression: Abdominal pain - Patient ED Disposition Is Patient to be Admitted: No - Disposition Disposition: Routine/Home Disposition Time: 05:32 Condition: STABLE - POA Present On Arrival: None
[2016-08-12 00:24] LABS: SQUAMOUS EPITHIAL 3 /hpf (0-5); URINE BACTERIA RARE (<OCC); URINE BILIRUBIN NEGATIVE (NEGATIVE); URINE BLOOD NEGATIVE (NEGATIVE); URINE CLARITY SLIGHTY-CLOUDY (Clear); URINE COLOR YELLOW (YELLOW); URINE GLUCOSE (UA) NEG (Normal); URINE HYALINE CAST 0-2 /hpf (0-2); URINE LEUKOCYTE ESTERASE NEG Leu/uL (Negative); URINE NITRATE NEGATIVE (NEGATIVE); URINE PROTEIN 30 mg/dL (NEGATIVE); URINE UROBILINOGEN 0.2-1.0 mg/dL (0.2-1.0)
== END 2016-08-12 05:30 | disposition home or self-care (01) ==
LOC: H.ER 20:47 → H.EROBSV 21:18
PROVIDERS: ADMIT Emergency Medicine; ATTEND Emergency Medicine
DX: R10.9 Unspecified abdominal pain (principal); E78.00 Pure hypercholesterolemia, unspecified; I10 Essential (primary) hypertension; Z86.711 Personal history of pulmonary embolism; M19.90 Unspecified osteoarthritis, unspecified site; J44.9 Chronic obstructive pulmonary disease, unspecified; Z79.01 Long term (current) use of anticoagulants; Z79.51 Long term (current) use of inhaled steroids; Z79.899 Other long term (current) drug therapy

== ENCOUNTER 2016-11-21 20:45 | Emergency (ER) | payer MEDICAID ==
[2016-11-21 20:45] VITALS: BMI 24.3
[2016-11-21] MEDS ORDERED: Albuterol-Ipratrop 3 mg / 0.5 (3 ml) UD IH STA (21:32)
--- NOTE | 2016-11-21 21:34 | ED PDOC ---
HPI: Psych/Substance Abuse Time Seen by Provider: 11/21/16 21:27 Chief Complaint (Nursing): Substance Abuse Chief Complaint (Provider): substance abuse History Per: EMS History/Exam Limitations: intoxication Additional History Per: EMS Additional Complaint(s): 56 y/o male brought in by EMS for evaluation of possible substance abuse. Honorio was found unresponsive on public transportation; history of heroin abuse. Patient responsive to verbal stimuli upon arrival, states he sniffed 1/ "maybe 2" bags of heroin tonight. Denies acute medical or psychiatric complaints. Past Medical History Reviewed: Historical Data, Nursing Documentation, Vital Signs Vital Signs: Last Vital Signs Temp 98.5 F 11/21/16 20:46 Pulse 88 11/21/16 20:46 Resp BP Pulse Ox 99 11/21/16 20:46 - Medical History PMH: Arthritis, Asthma, Bronchitis, COPD, HTN, Hypercholesterolemia, Pulmonary Embolism Denies: Alzheimer's Disease, Anemia, Atrial Fibrillation, Cardia Arrhythmia, CHF, Dementia, Emphysema, HIV, Hyperthyroidism, Hypothyroidism, Kidney Stones, Migraine, Mitral Valve Prolapse, Multiple Sclerosis, Parkinson's Disease, Peripheral Edema, Pneumonia, Chronic Kidney Disease, Seizures, Sickle Cell Disease, Sleep Apnea, TIA - Surgical History Surgical History: Hernia Repair Denies: Pacemaker - Family History Family History: States: No Known Family Hx - Immunization History Hx Tetanus Toxoid Vaccination: Yes Hx Influenza Vaccination: Yes Hx Pneumococcal Vaccination: Yes - Home Medications Home Medications: Ambulatory Orders Medication Instructions Recorded amLODIPine [Norvasc] 5 mg PO DAILY #0 tab 02/23/15 Fluticasone/Salmeterol 100/50 1 puff INH RQ12 #0 puff 08/11/15 [Advair Diskus 100/50] Tiotropium [Spiriva] 18 mcg IH DAILY #0 cap 08/11/15 Apixaban [Eliquis] 5 mg PO BID 04/25/16 Amoxicillin/Clavulanate [Augmentin 1 tab PO BID #10 tab 05/24/16 875 MG-125 MG Tab] Lactobacillus Acidophilus [Bacid 1 cap PO BID #10 cap 05/24/16 Acidophilus] Pantoprazole [Protonix EC Tab] 40 mg PO DAILY #30 ect 05/24/16 Albuterol HFA [Ventolin HFA 90 1 - 2 puff IH Q4H PRN #1 bottle 06/20/16 mcg/actuation (8 g)] Albuterol HFA [Ventolin HFA 90 1 puff IH ASDIR #1 unit 07/16/16 mcg/actuation (8 g)] Ondansetron ODT [Zofran ODT] 4 mg PO Q6 PRN #10 odt 08/12/16 Methylprednisolone [Medrol Dose 4 mg PO DAILY #21 mg 09/09/16 Pack (21 tabs)] - Allergies Allergies/Adverse Reactions: Allergies Allergy/AdvReac Type Severity Reaction Status Date / Time No Known Allergies Allergy Verified 05/20/16 13:24 Review of Systems ROS Statement: Except As Marked, All Systems Reviewed And Found Negative Physical Exam - Reviewed Nursing Documentation Reviewed: Yes Vital Signs Reviewed: Yes - Physical Exam Appears: Positive for: Well, Non-toxic, No Acute Distress Head Exam: Positive for: ATRAUMATIC, NORMAL INSPECTION, NORMOCEPHALIC Eye Exam: Positive for: EOMI. Negative for: PERRL (pinpoint bilaterally) ENT: Positive for: Normal ENT Inspection Cardiovascular/Chest: Positive for: Regular Rate, Rhythm Respiratory: Positive for: Wheezing Gastrointestinal/Abdominal: Positive for: Normal Exam Back: Positive for: Normal Inspection Extremity: Positive for: Normal ROM Neurologic/Psych: Positive for: Alert, Oriented - ECG O2 Sat by Pulse Oximetry: 99 - Progress ED Course And Treament: ilene clarke 23:00 Patient sleeping; responsive to verbal stimuli, no acute distress 00:30 Patient sleeping; responsive to verbal stimuli, no acute distress 2:00 Patient sleeping; responsive to verbal stimuli, no acute distress 3:30 Patient sleeping; responsive to verbal stimuli, no acute distress 5:00 Patient awake, alert, oriented x3; ambulating steady gait. O2 95% room air. Patient stable for discharge. Disposition - Clinical Impression Clinical Impression: Substance abuse - Patient ED Disposition Is Patient to be Admitted: No Counseled Patient/Family Regarding: Studies Performed, Diagnosis, Need For Followup - Disposition Disposition: Routine/Home Disposition Time: 05:00 Condition: STABLE Instructions: Narcotic Abuse (ED)
[2016-11-21] MEDS ORDERED: Albuterol-Ipratrop 3 mg / 0.5 (3 ml) UD ONE (21:36)
[2016-11-22 03:37] VITALS: BP 115/55; PULSE 70; RESP 15; TEMP 98.2
[2016-11-22 06:15] VITALS: O2SAT 96
== END 2016-11-22 05:45 | disposition home or self-care (01) ==
LOC: H.ER 20:45
DX: F19.10 Other psychoactive substance abuse, uncomplicated (principal); R06.2 Wheezing; J44.9 Chronic obstructive pulmonary disease, unspecified; E78.00 Pure hypercholesterolemia, unspecified; I10 Essential (primary) hypertension; Z79.01 Long term (current) use of anticoagulants; Z86.711 Personal history of pulmonary embolism

== ENCOUNTER 2017-01-18 20:41 | Inpatient (IN) | payer MEDICAID ==
[2017-01-18 20:41] VITALS: BMI 29.0
[2017-01-18] MEDS ORDERED: Albuterol-Ipratrop 3 mg / 0.5 (3 ml) UD INH STA (21:38)
[2017-01-18 22:04] LABS: ABG ALLEN TEST YES; ARTERIAL BLOOD GAS HCO3 25.3 mmol/L (21-28); ARTERIAL BLOOD GAS PH 7.28 (7.35-7.45); ARTERIAL BLOOD GAS PO2 128 mm/Hg (80-100)
[2017-01-18] MEDS ORDERED: Albuterol-Ipratrop 3 mg / 0.5 (3 ml) UD ONE (22:10)
[2017-01-18 22:15] LABS: BASO % 0.7 % (0.0-2.0); EOS # 0.5 K/uL (0.0-0.7); EOS % 10.1 % (0.0-4.0); HEMATOCRIT 38.7 % (35.0-51.0); LYMPH # 1.2 K/uL (1.0-4.3); LYMPH % 22.2 % (20.0-40.0); MEAN CELL VOLUME 94.7 fl (80.0-94.0); MEAN CORPUSCULAR HEMOGLOBIN 29.8 pg (27.0-31.0); MEAN CORPUSCULAR HGB CONC 31.5 g/dL (33.0-37.0); MEAN PLATELET VOLUME 8.7 fl (7.2-11.7); MONO # 0.5 K/uL (0.0-0.8); MONO % 8.5 % (0.0-10.0); NEUT # 3.1 K/uL (1.8-7.0); NEUT % 58.5 % (50.0-75.0); NRBC % 0.1 % (0.0-0.0); RED CELL DISTRIBUTION WIDTH 16.8 % (11.5-14.5); WHITE BLOOD COUNT 5.3 K/uL (4.8-10.8)
[2017-01-18 22:28] LABS: ALB/GLOB RATIO 1.3 (1.0-2.1); ALKALINE PHOSPHATASE 74 U/L (38-126); ALT/SGPT 38 U/L (21-72); AST/SGOT 25 U/L (17-59); BILIRUBIN,TOTAL 0.4 mg/dl (0.2-1.3); BLOOD UREA NITROGEN 18 mg/dl (9-20); CALCIUM 8.8 mg/dL (8.4-10.2); CARBON DIOXIDE 27 mmol/L (22-30); CHLORIDE 99 mmol/L (98-107); GFR AFRICAN-AMERICAN > 60; GLUCOSE,RANDOM 143 mg/dL (75-110); MAGNESIUM 1.8 MG/DL (1.6-2.3); PHOSPHOROUS 5.6 mg/dl (2.5-4.5); POTASSIUM 4.1 MMOL/L (3.6-5.0); SODIUM 137 mmol/l (132-148); TOTAL PROTEIN 7.6 G/DL (6.3-8.2)
[2017-01-18] MEDS ORDERED: levoFLOXacin 750 mg in D5W 150 ML BAG IVPB STA (23:02)
[2017-01-18] MEDS ORDERED: levoFLOXacin 750 mg in D5W 750 MG/150 ML BAG IVPB STA (23:12)
--- NOTE | 2017-01-18 23:25 | ED PDOC ---
HPI: SOB/CHF/COPD Time Seen by Provider: 01/18/17 21:10 Chief Complaint (Nursing): Shortness Of Breath Chief Complaint (Provider): cough sob History Per: Patient Onset/Duration Of Symptoms: Days (1), Gradual, Persistent Current Symptoms Are (Timing): Still Present Quality: Tightness Associated Symptoms: Productive Cough, Ankle/Leg Swelling, Dizziness, Light- headedness. denies: Fever, Chills, Bloody Cough Additional Complaint(s): Similar to previous episodes of severe COPD exacerbation Past Medical History Reviewed: Historical Data, Nursing Documentation, Vital Signs Vital Signs: Last Vital Signs Temp 98.4 F 01/20/17 07:58 Pulse 60 01/20/17 08:51 Resp 20 01/20/17 07:58 BP 100/57 L 01/20/17 08:51 Pulse Ox 99 01/20/17 15:12 - Medical History PMH: Arthritis, Asthma, Bronchitis, COPD, Gastrointestinal Ulcer, Gall Bladder Disease, HTN, Hypercholesterolemia, Pulmonary Embolism, Chronic Kidney Disease Denies: Alzheimer's Disease, Anemia, Atrial Fibrillation, Cardia Arrhythmia, CHF, Dementia, Emphysema, HIV, Hyperthyroidism, Hypothyroidism, Kidney Stones, Migraine, Mitral Valve Prolapse, Multiple Sclerosis, Parkinson's Disease, Peripheral Edema, Pneumonia, Seizures, Sickle Cell Disease, Sleep Apnea, TIA - Surgical History Surgical History: Hernia Repair Denies: Pacemaker - Family History Family History: States: Unknown Family Hx - Immunization History Hx Tetanus Toxoid Vaccination: Yes Hx Influenza Vaccination: Yes Hx Pneumococcal Vaccination: Yes - Home Medications Home Medications: Ambulatory Orders Medication Instructions Recorded Apixaban [Eliquis] 5 mg PO DAILY 12/22/16 amLODIPine [Norvasc] 10 mg PO DAILY 12/22/16 Albuterol HFA [Ventolin HFA 90 1 puff IH Q6 PRN 01/19/17 mcg/actuation (8 g)] - Allergies Allergies/Adverse Reactions: Allergies Allergy/AdvReac Type Severity Reaction Status Date / Time No Known Allergies Allergy Verified 12/31/16 12:38 Review of Systems ROS Statement: Except As Marked, All Systems Reviewed And Found Negative (and as per HPI) Constitutional: Negative for: Fever Cardiovascular: Positive for: Chest Pain, Edema, Light Headedness Respiratory: Positive for: Cough, Shortness of Breath, SOB with Exertion, Pleuritic Pain, Sputum, Wheezing Physical Exam - Reviewed Nursing Documentation Reviewed: Yes Vital Signs Reviewed: Yes - Physical Exam Appears: Positive for: Non-toxic, In Acute Distress Head Exam: Positive for: ATRAUMATIC, NORMOCEPHALIC Skin: Positive for: Warm, Dry Eye Exam: Positive for: EOMI, PERRL Neck: Positive for: Painless ROM, Supple Cardiovascular/Chest: Positive for: Regular Rate, Rhythm, Chest Non Tender. Negative for: Murmur Respiratory: Positive for: Rhonchi, Wheezing, Respiratory Distress. Negative for: Accessory Muscle Use Gastrointestinal/Abdominal: Positive for: Soft. Negative for: Tenderness Back: Positive for: Normal Inspection. Negative for: Decreased ROM Extremity: Positive for: Normal ROM, Pedal Edema Lymphatic: Negative for: Adenopathy Neurologic/Psych: Positive for: Alert. Negative for: Motor/Sensory Deficits - Laboratory Results Result Diagrams: 01/19/17 07:50 01/19/17 07:50 - ECG O2 Sat by Pulse Oximetry: 99 - Radiology X-Ray: Interpreted by Co X-Ray Interpretation: No Acute Disease - Progress Re-evaluation Time: 23:00 Condition: Unchanged Disposition - Clinical Impression Clinical Impression: COPD with exacerbation Discussed With : Jj Cates Comment: Medical service Counseled Patient/Family Regarding: Studies Performed, Diagnosis - Disposition Disposition Time: 23:00 Condition: FAIR - Pt Status Changed To: Hospital Disposition Of: Observation - POA Present On Arrival: None
[2017-01-19] MEDS ORDERED: levoFLOXacin 750 mg in D5W 750 MG/150 ML BAG IVPB ONE (00:07)
[2017-01-19] MEDS ORDERED: Albuterol HFA 90 mcg/actuation (8 g) IH PRN (06:39)
[2017-01-19] MEDS ORDERED: Albuterol-Ipratrop 3 mg / 0.5 (3 ml) UD INH PRN (06:43)
--- NOTE | 2017-01-19 08:06 | RAD ---
HISTORY: sob COMPARISON: Chest radiograph 05/18/2016. TECHNIQUE: Chest PA and lateral FINDINGS: LUNGS: No active pulmonary disease. Improved inspiratory volume is noted. PLEURA: No significant pleural effusion identified. No pneumothorax apparent. CARDIOVASCULAR: Normal. OSSEOUS STRUCTURES: No significant abnormalities. VISUALIZED UPPER ABDOMEN: Normal. OTHER FINDINGS: None. IMPRESSION: No acute infiltrate or definite cardiovascular disease in the interval. Improved inspiratory volume is identified bilaterally.
[2017-01-19 08:09] LABS: HEMATOCRIT 36.5 % (35.0-51.0); MEAN CORPUSCULAR HEMOGLOBIN 30.3 pg (27.0-31.0); MEAN CORPUSCULAR HGB CONC 33.2 g/dL (33.0-37.0); RED CELL DISTRIBUTION WIDTH 16.3 % (11.5-14.5); WHITE BLOOD COUNT 3.1 K/uL (4.8-10.8)
[2017-01-19 08:16] LABS: ALB/GLOB RATIO 1.2 (1.0-2.1); ALKALINE PHOSPHATASE 75 U/L (38-126); ALT/SGPT 36 U/L (21-72); AST/SGOT 20 U/L (17-59); BILIRUBIN,TOTAL 0.3 mg/dl (0.2-1.3); BLOOD UREA NITROGEN 19 mg/dl (9-20); CALCIUM 8.7 mg/dL (8.4-10.2); CARBON DIOXIDE 30 mmol/L (22-30); CHLORIDE 102 mmol/L (98-107); CHOLESTEROL 146 mg/dL (0-199); GFR AFRICAN-AMERICAN > 60; GLUCOSE,RANDOM 140 mg/dL (75-110); POTASSIUM 4.9 MMOL/L (3.6-5.0); SODIUM 138 mmol/l (132-148); TOTAL PROTEIN 7.1 G/DL (6.3-8.2)
[2017-01-19 08:21] LABS: MEAN CELL VOLUME 91.3 fl (80.0-94.0)
[2017-01-19 08:35] LABS: T4 7.55 ug/dl (5.5-11.0)
[2017-01-19 08:49] LABS: THYROID STIMULATING HORMONE 0.71 mIU/ML (0.46-4.68)
[2017-01-19] MEDS ORDERED: Enoxaparin 40 mg Syringe SC SCH (09:00)
[2017-01-19] MEDS ORDERED: levoFLOXacin 750 mg in D5W 150 ML BAG IVPB SCH (09:00)
[2017-01-19] MEDS ORDERED: Influenza Vaccine 18yr & older 0.5 ML/45 MCG SYR IM ONE (09:00)
[2017-01-19] MEDS: levoFLOXacin 750 mg in D5W 750 MG/150 ML BAG IVPB SCH (09:41)
--- NOTE | 2017-01-19 09:48 | HP ---
CHIEF COMPLAINT: Shortness of breath and cough. HISTORY OF PRESENT ILLNESS: This is a 56-year-old male, known case of COPD, asthma, arthritis, hypertension, peptic ulcer disease, elevated cholesterol, obesity, who was having shortness of breath on and off, which did not improve with treatment at home, so the patient was brought to the emergency room and was admitted for further management. PAST MEDICAL HISTORY: Significant for COPD, hypertension, asthma, arthritis, obesity, peptic ulcer disease, elevated cholesterol, also has history of chronic kidney disease and pulmonary embolism. PAST SURGICAL HISTORY: Remarkable for hernia repair. PERSONAL HISTORY: The patient is currently nonsmoker, nondrinker. No substance abuse. MEDICATIONS: The patient is on multiple medications including Tylenol, Eliquis, Motrin, Norvasc, DuoNeb, azithromycin and steroid. ALLERGIES: THE PATIENT IS NOT ALLERGIC TO ANY MEDICATIONS. FAMILY HISTORY: Noncontributory. REVIEW OF SYSTEMS: Positive for cough and shortness of breath. Review of systems otherwise is negative for headache, dizziness, syncope, loss of consciousness, chest pain, nausea, vomiting, diarrhea, constipation, any new joint or extremity pain or any fever, malaise or weakness. Review of systems of all other organ system is unremarkable. PHYSICAL EXAMINATION: GENERAL: Well-built, well-nourished, overweight 56-year-old male, in no acute distress. VITAL SIGNS: Temperature 98.5, pulse 94, respirations 20, blood pressure 136/74. HEENT: The patient's pupils are reacting to light. No JVD. No thyromegaly. No lymphadenopathy. No nystagmus. Normocephalic, atraumatic skull. HEART: S1 and S2. Normal and regular. No significant murmur, gallop or rub is heard. LUNGS: Shows good bilateral air exchange. Prolonged expiration. Decreased air movement. No rales or rhonchi. No wheezing. ABDOMEN: Soft, nontender. No organomegaly. No fluid. Bowel sounds are plus and normal. EXTREMITIES: No edema. No calf swelling. No tenderness. No acute ischemia. GENITALIA: External genitalia is appropriate for the patient's age. RECTAL: Stool for occult blood is negative. CENTRAL NERVOUS SYSTEM: The patient is alert, awake, oriented x3. There is no sign of any acute gross focal motor or sensory neurological deficit. DIAGNOSTIC DATA: WBC 5.3, hemoglobin 12.2, hematocrit 38.7, platelet 176. PH 7.28, pCO2 of 61, pO2 of 128, saturation 98%. Sodium 137, potassium 4.1, chloride 99, bicarb 27, BUN 18, creatinine 1.1. SMA-12 is unremarkable. Chest x-ray did not reveal any focal consolidation. EKG does not reveal any acute ST-T changes. ADMITTING IMPRESSION: Chronic obstructive pulmonary disease with exacerbation, hypertension, bronchial asthma, history of bronchitis, history of pulmonary embolism. PLAN: As ordered. Case and plan discussed with the patient. Jj Cates MD
[2017-01-19] MEDS ORDERED: methylPREDNISolone 80 MG in Sodium Chloride 0.9% 50 ML IVPB SCH (10:00)
--- NOTE | 2017-01-19 18:27 | CARD ---
APPROVED REPORT EKG Measurement Heart [id number] <Conclusion> Normal sinus rhythm Left axis deviation Incomplete right bundle branch block Minimal voltage criteria for LVH, may be normal variant Junctional ST depression, probably normal Abnormal ECG
[2017-01-19] MEDS: Albuterol-Ipratrop 3 mg / 0.5 (3 ml) UD INH SCH (19:07)
[2017-01-20] MEDS: Albuterol-Ipratrop 3 mg / 0.5 (3 ml) UD INH SCH ×4 (01:43→19:01)
[2017-01-20] MEDS: levoFLOXacin 750 mg in D5W 750 MG/150 ML BAG IVPB SCH (08:20)
--- NOTE | 2017-01-20 10:23 | PN ---
DATE: 01/20/2017 SUBJECTIVE: The patient is seen and examined. Interim events noted. The patient remains in regular medical floor. The patient feels much better. No chest pain. No shortness of breath. Breathing is improved, but still gets occasional shortness of breath and mainly on exertion. PHYSICAL EXAMINATION: GENERAL: The patient is in no acute distress. VITAL SIGNS: Stable. HEART: S1 and S2, normal and regular. LUNGS: Good bilateral air exchange, although the patient does have some prolonged respiration and decreased air exchanged, but slightly better than yesterday. ABDOMEN: Soft, nontender. No organomegaly. No fluid. Bowel sounds are plus. EXTREMITIES: No edema. No calf swelling. No tenderness. No acute ischemia. CENTRAL NERVOUS SYSTEM: Essentially unchanged. DIAGNOSTIC DATA: Available diagnostic data reviewed. ASSESSMENT AND PLAN: Overall, the patient is slowly improving, although still has exacerbation of chronic obstructive pulmonary disease requiring intravenous steroid, although . Plan as ordered. Case and plan discussed with the patient. Jj Cates MD
[2017-01-21] MEDS: Albuterol-Ipratrop 3 mg / 0.5 (3 ml) UD INH SCH ×4 (01:31→19:17)
[2017-01-21 07:48] LABS: ALB/GLOB RATIO 1.5 (1.0-2.1); ALKALINE PHOSPHATASE 58 U/L (38-126); ALT/SGPT 41 U/L (21-72); AST/SGOT 31 U/L (17-59); BILIRUBIN,TOTAL 0.7 mg/dl (0.2-1.3); BLOOD UREA NITROGEN 8 mg/dl (9-20); CALCIUM 9.1 mg/dL (8.4-10.2); CARBON DIOXIDE 30 mmol/L (22-30); CHLORIDE 103 mmol/L (98-107); GFR AFRICAN-AMERICAN > 60; GLUCOSE,RANDOM 122 mg/dL (75-110); POTASSIUM 3.9 MMOL/L (3.6-5.0); SODIUM 139 mmol/l (132-148); TOTAL PROTEIN 6.6 G/DL (6.3-8.2)
--- NOTE | 2017-01-21 08:38 | PN ---
DATE: 01/21/2017 SUBJECTIVE: Patient seen and examined. Interim events noted. Patient remains in regular medical floor, feels much better. Breathing improved. No chest pain or shortness of breath at this time. PHYSICAL EXAMINATION: GENERAL: Patient is in no acute distress. VITAL SIGNS: Stable. HEART: S1 and S2, normal and regular. LUNGS: Good bilateral air exchange, improved air exchange. No rhonchi. No rales. No wheezing. ABDOMEN: Soft, nontender. No organomegaly. No fluid. Bowel sounds are present. EXTREMITIES: No edema. No calf swelling. No tenderness. No acute ischemia. CENTRAL NERVOUS SYSTEM: Essentially unchanged. DIAGNOSTIC DATA: Available diagnostic data reviewed. ASSESSMENT AND PLAN: Overall, patient is clinically improving. We will further down to 40 mg q. 6 hours. Plan as ordered. Case and plan discussed with patient. Jj Cates MD
[2017-01-21] MEDS: levoFLOXacin 750 mg in D5W 750 MG/150 ML BAG IVPB SCH (09:19)
[2017-01-21] MEDS: MethylPREDNISolone 40 mg Vial IV SCH ×3 (14:04→22:24)
[2017-01-22] MEDS: Albuterol-Ipratrop 3 mg / 0.5 (3 ml) UD INH SCH ×2 (01:28→07:20)
[2017-01-22] MEDS: MethylPREDNISolone 40 mg Vial IV SCH (05:12)
[2017-01-22 07:37] VITALS: BP 158/88; RESP 20; TEMP 99; O2SAT 92
[2017-01-22] MEDS ORDERED: MethylPREDNISolone 40 mg Vial IV SCH (07:37)
[2017-01-22 08:53] VITALS: PULSE 74
[2017-01-22] MEDS: levoFLOXacin 750 mg in D5W 750 MG/150 ML BAG IVPB SCH (08:55)
--- NOTE | 2017-01-22 09:06 | PN ---
DATE: 01/22/2017 SUBJECTIVE: The patient is seen and examined. Interim events noted. The patient feels much better. Feels back to his usual status. No chest pain. No shortness of breath. Wants to go home. PHYSICAL EXAMINATION: GENERAL: The patient is in no acute distress. VITAL SIGNS: Stable. HEART: S1 and S2, normal and regular. LUNGS: Improved bilateral air exchange. No rales. No rhonchi. No wheezing. ABDOMEN: Soft, nontender. No organomegaly. No fluid. Bowel sounds are plus. EXTREMITIES: No edema. No calf swelling. No tenderness. No acute ischemia. CENTRAL NERVOUS SYSTEM: Essentially unchanged. DIAGNOSTIC DATA: Available diagnostic data reviewed. ASSESSMENT AND PLAN: Overall, the patient's general medical condition is stable. Plan as ordered. Jj Cates MD
--- NOTE | 2017-01-22 14:31 | PQF GENQUE ---
Dr. Cates, 1. Please clarify type of asthma: if known Mild intermittent Mild persistent Moderate persistent Severe persistent With bronchitis(please clarify acuity of bronchitis) Clinically unable to determine Unknown 2. Please clarify acuity of asthma: Uncomplicated With exacerbation(acute) With status asthmaticus Other (please specify) Clinically unable to determine Unknown H and P: Imp: Chronic obstructive pulmonary disease with exacerbation, hypertension, bronchial asthma, history of bronchitis, history of pulmonary embolism. 01/20 Progress note; Overall, the patient is slowly improving, although still has exacerbation of chronic obstructive pulmonary disease requiring intravenous steroid Duoneb stat then PRN-> Q6: Albuterol HFA 1 puff IH Q6 PRN This form is a permanent part of the medical record Clarification of your documentation is requested to better reflect the severity of illness and intensity of treatment of your patient. Indicators present [] Specify: [] [] Specify: [] [] Specify: [] [] Specify: [] Location in the medical record that reflects the above clinical findings: [] Treatment Provided: [] PHYSICIAN'S RESPONSE Based on your medical judgment of the clinical indicators outlined above please clarify the following: [] Practitioner response [] If unable to determine, please check the box, sign and date. Present On Admission (POA) Indicator: [] Present at the time of admission [] Not present at the time of admission [] Clinically Undetermined In responding to this query, please exercise your independent professional judgment. The fact that a question is asked does not imply that any particular answer is desired or expected. Thank you for your clarification on this documentation. If you have any questions please call. * Thank you, Harper Reeves RN ext. #[phone] MTDD
== END 2017-01-22 11:41 | disposition left against medical advice (07) | DRG 88 ==
LOC: H.ER 20:41 → H.ERHOLD 23:31 → H.MEDSURG1 01-19 01:02 → OBSVTOIN 01-19 13:40
PROVIDERS: ADMIT Internal Medicine; ATTEND Internal Medicine
PROC: 3E0F73Z Introduction of Anti-inflammatory into Respiratory Tract, Via Natural or Artificial Opening (ICD-10-PCS; principal; 2017-01-19)
PROC: 3E0234Z Introduction of Serum, Toxoid and Vaccine into Muscle, Percutaneous Approach (ICD-10-PCS; 2017-01-19)
DX: J44.1 Chronic obstructive pulmonary disease with (acute) exacerbation (principal); E66.9 Obesity, unspecified; N18.9 Chronic kidney disease, unspecified; E78.00 Pure hypercholesterolemia, unspecified; I12.9 Hypertensive chronic kidney disease with stage 1 through stage 4 chronic kidney disease, or unspecified chronic kidney disease; M19.90 Unspecified osteoarthritis, unspecified site; Z23 Encounter for immunization; Z68.29 Body mass index [BMI] 29.0-29.9, adult; Z79.01 Long term (current) use of anticoagulants; Z86.711 Personal history of pulmonary embolism; Z87.11 Personal history of peptic ulcer disease

== ENCOUNTER 2017-05-25 02:05 | Emergency (ER) | payer MEDICAID ==
[2017-05-25 02:06] VITALS: BMI 32.3
[2017-05-25 02:18] VITALS: BP 121/77; PULSE 96; RESP 17; TEMP 98.7; O2SAT 96
--- NOTE | 2017-05-25 02:26 | ED PDOC ---
HPI: General Adult Time Seen by Provider: 05/25/17 02:17 Chief Complaint (Nursing): Medical Clearance Chief Complaint (Provider): leg pain History Per: Patient Additional Complaint(s): 56 year old male presents via ambulance for evaluation of altered mental status. Patient lives in a room in a boarding house and a roommate noticed that he was "unresponsive." Patient states he took a pain pill from his friend due to left leg pain and the medication made him groggy. Patient does not know the name of the med that he took from his friend for pain. Upon arrival patient offers no complaints except that he is tired and he wants to go back home. Past Medical History Reviewed: Historical Data Vital Signs: Last Vital Signs Temp 98.7 F 05/25/17 02:10 Pulse 96 H 05/25/17 02:10 Resp 17 05/25/17 02:10 BP 121/77 05/25/17 02:10 Pulse Ox 96 05/25/17 02:10 - Medical History PMH: Arthritis, Asthma, Bronchitis, COPD, Gall Bladder Disease, HTN, Hypercholesterolemia, Pulmonary Embolism, Chronic Kidney Disease - Surgical History Surgical History: Hernia Repair - Family History Family History: States: No Known Family Hx - Living Arrangements Living Arrangements: Other (lives in boarding housing) - Social History Current smoker - smoking cessation education provided: No Alcohol: None Drugs: Denies - Home Medications Home Medications: Ambulatory Orders Medication Instructions Recorded Apixaban [Eliquis] 5 mg PO BID 12/22/16 amLODIPine [Norvasc] 10 mg PO DAILY 12/22/16 Albuterol HFA [Ventolin HFA 90 2 puff IH Q6 PRN 01/19/17 mcg/actuation (8 g)] Methylprednisolone [Medrol Dose 4 mg PO DAILY #21 mg 04/02/17 Pack (21 tabs)] - Allergies Allergies/Adverse Reactions: Allergies Allergy/AdvReac Type Severity Reaction Status Date / Time No Known Allergies Allergy Verified 03/30/17 21:18 Review of Systems ROS Statement: Except As Marked, All Systems Reviewed And Found Negative Musculoskeletal: Positive for: Leg Pain Physical Exam - Reviewed Nursing Documentation Reviewed: Yes Vital Signs Reviewed: Yes - Physical Exam Appears: Positive for: Well, Non-toxic, No Acute Distress Skin: Negative for: Rash Eye Exam: Positive for: Normal appearance Cardiovascular/Chest: Positive for: Regular Rate, Rhythm Respiratory: Positive for: Normal Breath Sounds Extremity: Positive for: Normal ROM Neurologic/Psych: Positive for: Alert, Oriented - ECG O2 Sat by Pulse Oximetry: 96 Pulse Ox Interpretation: Normal Medical Decision Making Medical Decision Makin56 year old male with left leg pain Patient is awake and alert, has steady gait with crutches that he uses at baseline. He is asking to go home. Vital signs stable Fingerstick - 117 Patient is stable for discharge. Disposition - Clinical Impression Clinical Impression: Leg pain - Patient ED Disposition Is Patient to be Admitted: No Counseled Patient/Family Regarding: Diagnosis, Need For Followup - Disposition Referrals: [facility] [Outside] Disposition: Routine/Home Disposition Time: 02:20 Condition: STABLE Additional Instructions: Follow-up as directed with primary doctor or clinic. Instructions: Muscle and Bone Pain (DC)
== END 2017-05-25 02:45 | disposition home or self-care (01) ==
LOC: H.ER 02:05
DX: M79.605 Pain in left leg (principal); Z86.711 Personal history of pulmonary embolism; Z79.01 Long term (current) use of anticoagulants; N18.9 Chronic kidney disease, unspecified; I12.9 Hypertensive chronic kidney disease with stage 1 through stage 4 chronic kidney disease, or unspecified chronic kidney disease; J44.9 Chronic obstructive pulmonary disease, unspecified; E78.00 Pure hypercholesterolemia, unspecified

== ENCOUNTER 2017-06-09 10:52 | Emergency (ER) | payer MEDICAID ==
[2017-06-09 11:04] VITALS: RESP 18; BMI 30.4
--- NOTE | 2017-06-09 11:47 | ED PDOC ---
HPI: SOB/CHF/COPD Time Seen by Provider: 06/09/17 11:08 Chief Complaint (Nursing): Lower Extremity Problem/Injury Chief Complaint (Provider): CHF Sx History Per: Patient Past Medical History Vital Signs: Last Vital Signs Temp 98.2 F 06/09/17 11:03 Pulse 66 06/09/17 14:51 Resp 18 06/09/17 14:51 BP 116/69 06/09/17 14:52 Pulse Ox 97 06/09/17 14:51 - Medical History PMH: Arthritis, Asthma, Bronchitis, COPD, Deep Vein Thrombosis, Gastrointestinal Ulcer, Gall Bladder Disease, HTN, Hypercholesterolemia, Pulmonary Embolism, Chronic Kidney Disease Denies: Alzheimer's Disease, Anemia, Atrial Fibrillation, Cardia Arrhythmia, CHF, Dementia, Emphysema, HIV, Hyperthyroidism, Hypothyroidism, Kidney Stones, Migraine, Mitral Valve Prolapse, Multiple Sclerosis, Parkinson's Disease, Peripheral Edema, Pneumonia, Seizures, Sickle Cell Disease, Sleep Apnea, TIA - Surgical History Surgical History: Hernia Repair Denies: Pacemaker - Family History Family History: States: Unknown Family Hx - Immunization History Hx Tetanus Toxoid Vaccination: Yes Hx Influenza Vaccination: Yes Hx Pneumococcal Vaccination: Yes - Home Medications Home Medications: Ambulatory Orders Medication Instructions Recorded Apixaban [Eliquis] 5 mg PO BID 12/22/16 amLODIPine [Norvasc] 10 mg PO DAILY 12/22/16 Albuterol HFA [Ventolin HFA 90 2 puff IH Q6 PRN 01/19/17 mcg/actuation (8 g)] Methylprednisolone [Medrol Dose 4 mg PO DAILY #21 mg 04/02/17 Pack (21 tabs)] - Allergies Allergies/Adverse Reactions: Allergies Allergy/AdvReac Type Severity Reaction Status Date / Time No Known Allergies Allergy Verified 06/09/17 11:09 Physical Exam - Reviewed Nursing Documentation Reviewed: Yes Vital Signs Reviewed: Yes - Physical Exam Appears: Positive for: Well, Non-toxic, No Acute Distress Head Exam: Positive for: ATRAUMATIC, NORMAL INSPECTION, NORMOCEPHALIC Skin: Positive for: Normal Color, Warm, Dry ENT: Negative for: Nasal Congestion, Pharyngeal Erythema Neck: Positive for: Normal, Painless ROM. Negative for: Decreased ROM Cardiovascular/Chest: Positive for: Regular Rate, Rhythm, Chest Non Tender. Negative for: Edema, Gallop, Murmur, Bradycardia, Tachycardia Respiratory: Positive for: Normal Breath Sounds. Negative for: Accessory Muscle Use, Crackles, Stridor, Wheezing Pulses-Carotid (L): 2+ Pulses-Carotid (R): 2+ Pulses-Radial (L): 2+ Pulses-Radial (R): 2+ - Laboratory Results Result Diagrams: 06/09/17 12:13 06/09/17 12:13 - ECG O2 Sat by Pulse Oximetry: 98 Medical Decision Making Medical Decision Making: R/O DVT R/O CHF CHF is ruled out based on small cardiac profile and low BNP DVT: ultrasonic findings indicate a DVT in the left femoral vein; no comparison imaging is available from pt previous DVT. Pt is currently on Eliquist 5mg BID. ED thought is that this is a failure of outpatient therapy. Decision to admit made and hospitalist contacted Hospitalist indicated a lack of desire to admit due to pt being on medical tx already. No admit permitted. Hospitalist also indicated to no change therapeutic dose of 5mg BID. ED assist in discharge patient. Pt urged to follow up with PMD at [facility] Disposition - Clinical Impression Clinical Impression: Deep venous thrombosis, femoral vein, DVT prophylaxis - Patient ED Disposition Is Patient to be Admitted: No Discussed With : Charles Pizarro Doctor Will See Patient In The: Office Counseled Patient/Family Regarding: Studies Performed, Diagnosis, Need For Followup - Disposition Disposition: Routine/Home Disposition Time: 17:45 Condition: FAIR Additional Instructions: PT urged to follow up in 1-2 days with his PMD Continue taking eliquist 5mg twice a day Instructions: Deep Vein Thrombosis (Blood Clots in the Legs), How to Prevent Blood Clots, Deep Vein Thrombosis (Blood Clots in the Legs) (DC) Forms: [employer] ([place])
[2017-06-09] MEDS ORDERED: Albuterol-Ipratrop 3 mg / 0.5 (3 ml) UD IH STA (11:57)
[2017-06-09] MEDS ORDERED: Albuterol-Ipratrop 3 mg / 0.5 (3 ml) UD ONE (11:59)
[2017-06-09 12:18] LABS: BASO % 0.8 % (0.0-2.0); EOS # 0.6 K/uL (0.0-0.7); EOS % 12.9 % (0.0-4.0); HEMOGLOBIN 11.3 g/dL (12.0-18.0); LYMPH % 23.8 % (20.0-40.0); MEAN CELL VOLUME 92.7 fl (80.0-94.0); MEAN CORPUSCULAR HEMOGLOBIN 29.9 pg (27.0-31.0); MEAN CORPUSCULAR HGB CONC 32.3 g/dL (33.0-37.0); MEAN PLATELET VOLUME 9.2 fl (7.2-11.7); MONO # 0.5 K/uL (0.0-0.8); MONO % 12.2 % (0.0-10.0); NEUT # 2.2 K/uL (1.8-7.0); NEUT % 50.3 % (50.0-75.0); NRBC % 0.1 % (0.0-0.0); RBC 3.78 Mil/uL (4.40-5.90); RED CELL DISTRIBUTION WIDTH 14.9 % (11.5-14.5); WHITE BLOOD COUNT 4.4 K/uL (4.8-10.8)
[2017-06-09 12:28] LABS: ALB/GLOB RATIO 1.1 (1.0-2.1); ALBUMIN 3.8 g/dL (3.5-5.0); ALT/SGPT 32 U/L (21-72); AST/SGOT 25 U/L (17-59); BLOOD UREA NITROGEN 14 mg/dl (9-20); CALCIUM 8.7 mg/dL (8.4-10.2); GFR AFRICAN-AMERICAN > 60; GFR NON-AFRICAN AMERICAN > 60
[2017-06-09 12:37] LABS: INR 1.2 (0.9-1.2); PROTHROMBIN TIME 13.3 Seconds (9.8-13.1)
--- NOTE | 2017-06-09 13:52 | RAD ---
HISTORY: r/o cardiomeg COMPARISON: Chest radiograph dated 01/18/2017. TECHNIQUE: Chest PA and lateral FINDINGS: LUNGS: No active pulmonary disease. PLEURA: No significant pleural effusion identified. No pneumothorax apparent. CARDIOVASCULAR: Atherosclerotic aortic calcifications. Cardiomediastinal silhouette within normal limits. OSSEOUS STRUCTURES: Unchanged. VISUALIZED UPPER ABDOMEN: Normal. OTHER FINDINGS: None. IMPRESSION: No active disease.
[2017-06-09 15:14] LABS: SQUAMOUS EPITHIAL < 1 /hpf (0-5); URINE BILIRUBIN NEGATIVE (NEGATIVE); URINE BLOOD NEGATIVE (NEGATIVE); URINE CLARITY CLEAR (Clear); URINE COLOR YELLOW (YELLOW); URINE GLUCOSE (UA) NEG (Normal); URINE LEUKOCYTE ESTERASE NEG Leu/uL (Negative); URINE PROTEIN NEGATIVE (NEGATIVE); URINE UROBILINOGEN 0.2-1.0 mg/dL (0.2-1.0)
--- NOTE | 2017-06-09 16:43 | US ---
PROCEDURE: Bilateral lower extremity venous duplex Doppler. HISTORY: hx dvt; r/o dvt COMPARISON: Lower extremity ultrasound dated 04/25/2016. TECHNIQUE: Bilateral common femoral, superficial femoral, popliteal and posterior tibial veins were evaluated. Flow was assessed with color Doppler, compressibility, assessment of phasic flow and augmentation response. FINDINGS: COMMON FEMORAL VEIN: Right CFV: Unremarkable. Left CFV: Unremarkable. SUPERFICIAL FEMORAL VEIN: Right SFV: Unremarkable. Left SFV: Intraluminal echogenic material and partial compressibility of the proximal/mid portions. POPLITEAL VEIN: Right Popliteal: Unremarkable. Left Popliteal: Unremarkable. POSTERIOR TIBIAL VEIN: Right PTV: Unremarkable. Left PTV: Unremarkable. OTHER FINDINGS: None. IMPRESSION: Partially occlusive deep venous thrombosis of the left proximal/ mid femoral vein.
--- NOTE | 2017-06-09 17:42 | CP.PCM.CON ---
History of Present Illness - History of Present Illness History of Present Illness: 56 yo male with history of DVT in 2016 and 2017 and had been worked up for coagulopathy as per Dr Niall Cervantes note in 2017 has IVC filter. 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 There is no further treatment on this patient unless condition is complicated with PE which the patient do not have basing on his stable vital signs and absence of chest pain or SOB. His O2 sat were noted to be 97-98% on RA. Both lung beltran were clear. Patient does not meet criteria for admission. Please discharge patient and continue Eliquis. He can follow up as outpatient with his PCP. Past Patient History - Infectious Disease Hx of Infectious Diseases: None - Past Medical History & Family History Past Medical History?: Yes - Past Social History Smoking Status: Light Smoker < 10 Cigarettes Daily - CARDIAC Hx Atrial Fibrillation: No Hx Cardia Arrhythmia: No Hx Congestive Heart Failure: No Hx Hypercholesterolemia: Yes Hx Hypertension: Yes Hx Mitral Valve Prolapse: No Hx Pacemaker: No Hx Peripheral Edema: No - PULMONARY Hx Asthma: Yes Hx Bronchitis: Yes Hx Chronic Obstructive Pulmonary Disease (COPD): Yes Hx Emphysema: No Hx Pneumonia: No Hx Pulmonary Embolism: Yes Hx Sleep Apnea: No - NEUROLOGICAL Hx Alzheimer's Disease: No Hx Dementia: No Hx Migraine: No Hx Multiple Sclerosis: No Hx Parkinson's Disease: No Hx Seizures: No Hx Transient Ischemic Attacks (TIA): No - HEENT Hx HEENT Problems: No Hx Blind: No Hx Cataracts: No Hx Deafness: No Hx Difficulty Chewing: No Hx Epistaxis: No Hx Glaucoma: No Hx Macular Degeneration: No Other/Comment: uses eye glasses - RENAL Hx Chronic Kidney Disease: Yes Hx Kidney Stones: No - ENDOCRINE/METABOLIC Hx Hyperthyroidism: No Hx Hypothyroidism: No - HEMATOLOGICAL/ONCOLOGICAL Hx Anemia: No Hx Human Immunodeficiency Virus (HIV): No Hx Sickle Cell Disease: No - INTEGUMENTARY Hx Dermatological Problems: Yes Other/Comment: skin very dry - MUSCULOSKELETAL/RHEUMATOLOGICAL Hx Arthritis: Yes - GASTROINTESTINAL Hx Gall Bladder Disease: Yes - GENITOURINARY/GYNECOLOGICAL Hx Genitourinary Disorders: No - PSYCHIATRIC Hx Psychophysiologic Disorder: No Hx Substance Use: Yes (Use Heroin) - SURGICAL HISTORY Hx Surgeries: Yes Hx Herniorrhaphy: Yes (left) Hx Musculoskeletal Surgery: Yes (LEFT KNEE) Other/Comment: collapsed lung - ANESTHESIA Hx Anesthesia: Yes Hx Anesthesia Reactions: No Hx Malignant Hyperthermia: No Meds Allergies/Adverse Reactions: Allergies Allergy/AdvReac Type Severity Reaction Status Date / Time No Known Allergies Allergy Verified 06/09/17 11:09 Results - Vital Signs Recent Vital Signs: Last Vital Signs Temp 98.2 F 06/09/17 11:03 Pulse 66 06/09/17 14:51 Resp 18 06/09/17 14:51 BP 116/69 06/09/17 14:52 Pulse Ox 97 06/09/17 14:51 - Labs Result Diagrams: 06/09/17 12:13 06/09/17 12:13 Labs: Laboratory Results - last 24 hr 06/09/17 06/09/17 06/09/17 12:13 12:13 12:13 WBC 4.4 L RBC 3.78 L Hgb 11.3 L Hct 35.0 MCV 92.7 MCH 29.9 MCHC 32.3 L RDW 14.9 H Plt Count 203 MPV 9.2 Neut % (Auto) 50.3 Lymph % (Auto) 23.8 [place] % (Auto) 12.2 H Eos % (Auto) 12.9 H Baso % (Auto) 0.8 Neut # (Auto) 2.2 Lymph # (Auto) 1.0 [place] # (Auto) 0.5 Eos # (Auto) 0.6 Baso # (Auto) 0.0 PT 13.3 H INR 1.2 APTT 29.0 Sodium 137 Potassium 4.2 Chloride 98 Carbon Dioxide 29 Anion Gap 14 BUN 14 Creatinine 0.8 Est GFR ( Amer) > 60 Est GFR (Non-Af Amer) > 60 Random Glucose 108 Calcium 8.7 Phosphorus 2.9 Total Bilirubin 0.3 AST 25 ALT 32 Alkaline Phosphatase 74 Total Creatine Kinase 223 H Troponin I < 0.0120 NT-Pro-B Natriuret Pep 63.0 Total Protein 7.2 Albumin 3.8 Globulin 3.3 Albumin/Globulin Ratio 1.1 Urine Color Urine Clarity Urine pH Ur Specific [place] Urine Protein Urine Glucose (UA) Urine Ketones Urine Blood Urine Nitrate Urine Bilirubin Urine Urobilinogen Ur Leukocyte Esterase Urine RBC (Auto) Urine Microscopic WBC Ur Squamous Epith Cells 06/09/17 13:50 WBC RBC Hgb Hct MCV MCH MCHC RDW Plt Count MPV Neut % (Auto) Lymph % (Auto) [place] % (Auto) Eos % (Auto) Baso % (Auto) Neut # (Auto) Lymph # (Auto) [place] # (Auto) Eos # (Auto) Baso # (Auto) PT INR APTT Sodium Potassium Chloride Carbon Dioxide Anion Gap BUN Creatinine Est GFR ( Amer) Est GFR (Non-Af Amer) Random Glucose Calcium Phosphorus Total Bilirubin AST ALT Alkaline Phosphatase Total Creatine Kinase Troponin I NT-Pro-B Natriuret Pep Total Protein Albumin Globulin Albumin/Globulin Ratio Urine Color Yellow Urine Clarity Clear Urine pH 6.0 Ur Specific [place] 1.008 Urine Protein Negative Urine Glucose (UA) Neg Urine Ketones Negative Urine Blood Negative Urine Nitrate Negative Urine Bilirubin Negative Urine Urobilinogen 0.2-1.0 Ur Leukocyte Esterase Neg Urine RBC (Auto) 3 Urine Microscopic WBC < 1 Ur Squamous Epith Cells < 1
[2017-06-09 17:43] VITALS: O2SAT 98
--- NOTE | 2017-06-09 17:43 | CARD ---
APPROVED REPORT EKG Measurement Heart [id number] <Conclusion> Normal sinus rhythm Left anterior fascicular block Minimal voltage criteria for LVH, may be normal variant Abnormal ECG
[2017-06-09 18:14] VITALS: BP 118/68; PULSE 67; TEMP 98.4
== END 2017-06-09 18:37 | disposition home or self-care (01) ==
LOC: H.ER 10:52
DX: I82.402 Acute embolism and thrombosis of unspecified deep veins of left lower extremity (principal); Z79.01 Long term (current) use of anticoagulants; Z86.711 Personal history of pulmonary embolism; Z86.718 Personal history of other venous thrombosis and embolism; J44.9 Chronic obstructive pulmonary disease, unspecified; E78.00 Pure hypercholesterolemia, unspecified; I13.0 Hypertensive heart and chronic kidney disease with heart failure and stage 1 through stage 4 chronic kidney disease, or unspecified chronic kidney disease; F17.210 Nicotine dependence, cigarettes, uncomplicated
CPT/HCPCS: 71046; 80053; 81003; 82550; 83880; 84100; 84484; 85025; 85610; 85730; 93005; 93970; 94640; 96374; 99285; J1940

== ENCOUNTER 2017-06-15 19:16 | Emergency (ER) | payer MEDICAID ==
[2017-06-15 19:17] VITALS: BMI 30.4
[2017-06-15 19:26] VITALS: BP 168/96; TEMP 97.1
--- NOTE | 2017-06-15 19:57 | ED PDOC ---
HPI: Psych/Substance Abuse Time Seen by Provider: 06/15/17 19:27 Chief Complaint (Nursing): Substance Abuse Chief Complaint (Provider): Substance Abuse History Per: Patient, EMS History/Exam Limitations: no limitations Onset/Duration Of Symptoms: Hrs Additional Complaint(s): Sammy monson is a 56 year old male well known to the ER for opiate abuse, with a past medical history of hypertension, hypercholesterolemia, and COPD who was brought to the ER by EMS for evaluation of possible opiate overdose, s/p roommate finding patient unresponsive in house prior to arrival. Upon arrival, EMS administered Narcan, and patient woke up. Patient in ED states that he feels fine, has no complaints, and does not know what happened. He denies any drug or alcohol use and states he just wants to be discharged. Patient offers no other medical complaints at this time and denies any homicidal or suicidal ideation. PMD: none provided Past Medical History Reviewed: Historical Data, Nursing Documentation, Vital Signs Vital Signs: Last Vital Signs Temp 97.1 F L 06/15/17 19:22 Pulse 98 H 06/15/17 19:54 Resp 17 06/15/17 19:54 BP 168/96 H 06/15/17 19:22 Pulse Ox 100 06/15/17 19:54 - Medical History PMH: Arthritis, Asthma, Bronchitis, COPD, Deep Vein Thrombosis, Gastrointestinal Ulcer, Gall Bladder Disease, HTN, Hypercholesterolemia, Pulmonary Embolism, Chronic Kidney Disease Denies: Alzheimer's Disease, Anemia, Atrial Fibrillation, Cardia Arrhythmia, CHF, Dementia, Emphysema, HIV, Hyperthyroidism, Hypothyroidism, Kidney Stones, Migraine, Mitral Valve Prolapse, Multiple Sclerosis, Parkinson's Disease, Peripheral Edema, Pneumonia, Seizures, Sickle Cell Disease, Sleep Apnea, TIA - Surgical History Surgical History: Hernia Repair Denies: Pacemaker - Family History Family History: States: Unknown Family Hx - Social History Current smoker - smoking cessation education provided: No (unknown) Alcohol: Other (denies) Drugs: Opiates - Immunization History Hx Tetanus Toxoid Vaccination: Yes Hx Influenza Vaccination: Yes Hx Pneumococcal Vaccination: Yes - Home Medications Home Medications: Ambulatory Orders Medication Instructions Recorded Apixaban [Eliquis] 5 mg PO BID 12/22/16 amLODIPine [Norvasc] 10 mg PO DAILY 12/22/16 Albuterol HFA [Ventolin HFA 90 2 puff IH Q6 PRN 01/19/17 mcg/actuation (8 g)] Methylprednisolone [Medrol Dose 4 mg PO DAILY #21 mg 04/02/17 Pack (21 tabs)] Naloxone HCl [Narcan] 4 mg NS PRN PRN #1 spray 06/15/17 - Allergies Allergies/Adverse Reactions: Allergies Allergy/AdvReac Type Severity Reaction Status Date / Time No Known Allergies Allergy Verified 06/09/17 11:09 Review of Systems ROS Statement: Except As Marked, All Systems Reviewed And Found Negative Psych: Negative for: Suicidal ideation, Other (homicidal ideation) Physical Exam - Reviewed Nursing Documentation Reviewed: Yes Vital Signs Reviewed: Yes - Physical Exam Appears: Positive for: No Acute Distress (angry) Head Exam: Positive for: ATRAUMATIC, NORMOCEPHALIC Skin: Positive for: Warm, Dry Eye Exam: Positive for: EOMI, PERRL ENT: Positive for: Pharynx Is (clear) Neck: Positive for: Painless ROM, Supple Cardiovascular/Chest: Positive for: Regular Rate, Rhythm, Chest Non Tender. Negative for: Murmur Respiratory: Positive for: Normal Breath Sounds. Negative for: Wheezing, Respiratory Distress Gastrointestinal/Abdominal: Positive for: Soft. Negative for: Tenderness Back: Positive for: Normal Inspection. Negative for: Muscle Spasm Extremity: Positive for: Normal ROM. Negative for: Deformity Lymphatic: Negative for: Adenopathy Neurologic/Psych: Positive for: Alert, Oriented (x3), Mood/Affect (angry / anxious). Negative for: Motor/Sensory Deficits - ECG O2 Sat by Pulse Oximetry: 100 (RA) Pulse Ox Interpretation: Normal Medical Decision Making Medical Decision Making: Time: 19:40 Impression: Opiate Overdose Patient needs observation for at least 90 minutes after administration of Naracan for possible reoccurrence of unresponsiveness. Patient demands to have his stuff stay in his room with him, but his belongings need to be secured due to suspicion of possible opiates among belongings. Patient became very aggressive, but with redirection ultimately agreeable to plan. Belongings secured by security. Plan to discharge at 20:30. 2030 Pt continues to be alert and aware. Stable for discharge. Drug addiction resources and narcan prescription. Scribe Attestation: Documented by Yelitza Estrada, acting as a scribe for Rachel Piedra MD. Provider Scribe Attestation: All medical record entries made by the Scribe were at my direction and personally dictated by me. I have reviewed the chart and agree that the record accurately reflects my personal performance of the history, physical exam, medical decision making, and the department course for this patient. I have also personally directed, reviewed, and agree with the discharge instructions and disposition. Disposition - Clinical Impression Clinical Impression: Opiate abuse, continuous - Disposition Referrals: [facility] [Outside] [facility] [Outside] Disposition: Routine/Home Disposition Time: 20:30 Condition: IMPROVED Prescriptions: Naloxone HCl [Narcan] 4 mg NS PRN PRN #1 spray PRN Reason: opiate or heroin overdose Instructions: Opioid Use Disorder Forms: [employer] ([place])
[2017-06-15 20:34] VITALS: RESP 14
[2017-06-15 20:53] VITALS: PULSE 90
[2017-06-16 16:27] VITALS: O2SAT 100
== END 2017-06-15 20:52 | disposition home or self-care (01) ==
LOC: H.ER 19:16
DX: T40.601A Poisoning by unspecified narcotics, accidental (unintentional), initial encounter (principal); Z86.718 Personal history of other venous thrombosis and embolism; Z86.711 Personal history of pulmonary embolism; Z79.01 Long term (current) use of anticoagulants; N18.9 Chronic kidney disease, unspecified; J44.9 Chronic obstructive pulmonary disease, unspecified; I12.9 Hypertensive chronic kidney disease with stage 1 through stage 4 chronic kidney disease, or unspecified chronic kidney disease; F11.10 Opioid abuse, uncomplicated; E78.00 Pure hypercholesterolemia, unspecified

== ENCOUNTER 2017-12-10 20:17 | Inpatient (IN) | payer MEDICAID ==
[2017-12-10 20:18] VITALS: BMI 30.4
[2017-12-10] MEDS ORDERED: Albuterol-Ipratrop 3 mg / 0.5 (3 ml) UD INH STA (20:42)
--- NOTE | 2017-12-10 21:26 | ED PDOC ---
HPI: SOB/CHF/COPD Time Seen by Provider: 12/10/17 20:37 Chief Complaint (Nursing): Shortness Of Breath Chief Complaint (Provider): Shortness of Breath History Per: Patient History/Exam Limitations: no limitations Onset/Duration Of Symptoms: Hrs (x2) Current Symptoms Are (Timing): Still Present Quality: Tightness Additional Complaint(s): 57 year old male, with a past medical history of COPD, HTN, and heroine dependence, presents to the ED complaining of SOB and chest tightness for 2 hours with no relief with home medication. Patient reports having cough with velez sputum for 2-3 days. Denies fever. He admits to snorting heroine daily including today. He also reports having bilateral leg edema. PMD: none Past Medical History Reviewed: Historical Data, Nursing Documentation, Vital Signs Vital Signs: Last Vital Signs Temp 98.5 F 12/10/17 20:22 Pulse 86 12/10/17 20:22 Resp 16 12/10/17 20:22 BP 148/86 12/10/17 20:22 Pulse Ox 96 12/10/17 20:22 - Medical History PMH: Arthritis, Asthma, Bronchitis, COPD, Deep Vein Thrombosis, Gastrointestinal Ulcer, Gall Bladder Disease, HTN, Hypercholesterolemia, Pulmonary Embolism, Chronic Kidney Disease Denies: Alzheimer's Disease, Anemia, Atrial Fibrillation, Cardia Arrhythmia, CHF, Dementia, Emphysema, HIV, Hyperthyroidism, Hypothyroidism, Kidney Stones, Migraine, Mitral Valve Prolapse, Multiple Sclerosis, Parkinson's Disease, Peripheral Edema, Pneumonia, Seizures, Sickle Cell Disease, Sleep Apnea, TIA - Surgical History Surgical History: Hernia Repair Denies: Pacemaker - Family History Family History: States: Unknown Family Hx - Social History Drugs: Opiates - Immunization History Hx Tetanus Toxoid Vaccination: Yes Hx Influenza Vaccination: Yes Hx Pneumococcal Vaccination: Yes - Home Medications Home Medications: Ambulatory Orders Medication Instructions Recorded Albuterol Sulfate [Ventolin Hfa] 2 puff IH Q6 PRN 12/11/17 Apixaban [Eliquis] 5 mg PO Q12 12/11/17 Pantoprazole Sodium [Protonix] 40 mg PO DAILY 12/11/17 Tamsulosin [Flomax] 0.4 mg PO QPM 12/11/17 Tiotropium [Spiriva] 18 mcg IH DAILY 12/11/17 amLODIPine [Norvasc] 10 mg PO DAILY 12/11/17 - Allergies Allergies/Adverse Reactions: Allergies Allergy/AdvReac Type Severity Reaction Status Date / Time No Known Allergies Allergy Verified 12/10/17 20:22 Review of Systems ROS Statement: Except As Marked, All Systems Reviewed And Found Negative (and as per HPI) Constitutional: Negative for: Fever Cardiovascular: Positive for: Other (chest tightness) Respiratory: Positive for: Shortness of Breath Musculoskeletal: Positive for: Other (Bilateral leg edema) Physical Exam - Reviewed Nursing Documentation Reviewed: Yes Vital Signs Reviewed: Yes - Physical Exam Appears: Positive for: Non-toxic, In Acute Distress Head Exam: Positive for: ATRAUMATIC, NORMOCEPHALIC Skin: Positive for: Warm, Dry Eye Exam: Positive for: EOMI, PERRL ENT: Negative for: Pharyngeal Erythema, Tonsillar Exudate Neck: Positive for: Painless ROM, Supple Cardiovascular/Chest: Positive for: Regular Rate, Rhythm. Negative for: Murmur Respiratory: Positive for: Rhonchi, Wheezing (diffuse expiratory wheeze ), Respiratory Distress (mild) Pulses-Dorsalis Pedis (L): 2+ Pulses-Dorsalis Pedis (R): 2+ Gastrointestinal/Abdominal: Positive for: Soft. Negative for: Tenderness Back: Positive for: Normal Inspection. Negative for: Decreased ROM Extremity: Positive for: Other (2+ bilateral lower leg edema) Lymphatic: Negative for: Adenopathy Neurologic/Psych: Positive for: Alert, Oriented - Laboratory Results Result Diagrams: 12/11/17 06:00 12/11/17 06:00 - ECG O2 Sat by Pulse Oximetry: 96 (RA) Pulse Ox Interpretation: Normal - Critical Care Total Time (In Min): 30 Documented Critical Care: Time excludes all time spent performint seperately billable procedures Medical Decision Making Medical Decision Making: Initial Impression: COPD exacerbation Differential includes but not limited to pneumonia, COPD, CHF, bronchitis Initial Plan: --ABG shock panel --ECG --Alcohol serum --B-type natriuretic stat --CMP --Drug screen --Troponin --CBC --Partial thromboplastin --Prothrombin time --Chest X-ray --Albuterol 9mL INH --Solu-medrol 125mg IV --Blood culture --Peak flow 22:15 Chest X-ray: no acute findings ABG demonstrates marked hypercarbia and acidosis, most c/w chronic respiratory acidosis. Pt will need hospitalization for COPD exacerbation Pt reports mild improvement of symptoms but wheeze persists. Magnesium ordered. Scribe Attestation: Documented by Abdulaziz Cote acting as a scribe for Rachel Piedra MD. Provider Scribe Attestation: All medical record entries made by the Scribe were at my direction and personally dictated by me. I have reviewed the chart and agree that the record accurately reflects my personal performance of the history, physical exam, medical decision making, and the department course for this patient. I have also personally directed, reviewed, and agree with the discharge instructions and disposition. Disposition - Clinical Impression Clinical Impression: COPD with exacerbation Discussed With Dr.: Herve Quigley Doctor Will See Patient In The: Hospital Counseled Patient/Family Regarding: Studies Performed, Diagnosis - Disposition Disposition Time: 23:00 Condition: GUARDED - Pt Status Changed To: Hospital Disposition Of: Observation - POA Present On Arrival: None
[2017-12-10] MEDS ORDERED: Albuterol-Ipratrop 3 mg / 0.5 (3 ml) UD ONE (21:32)
[2017-12-10 21:49] LABS: BASO # 0.1 K/uL (0.0-0.2); BASO % 1.1 % (0.0-2.0); EOS # 0.4 K/uL (0.0-0.7); EOS % 7.6 % (0.0-4.0); HEMOGLOBIN 11.4 g/dL (12.0-18.0); MEAN CELL VOLUME 94.4 fl (80.0-94.0); MEAN CORPUSCULAR HEMOGLOBIN 30.3 pg (27.0-31.0); MEAN PLATELET VOLUME 8.6 fl (7.2-11.7); MONO # 0.7 K/uL (0.0-0.8); MONO % 13.5 % (0.0-10.0); NEUT # 2.8 K/uL (1.8-7.0); NEUT % 57.8 % (50.0-75.0); RBC 3.78 Mil/uL (4.40-5.90); WHITE BLOOD COUNT 4.9 K/uL (4.8-10.8)
[2017-12-10 22:04] LABS: PROTHROMBIN TIME 11.9 Seconds (9.8-13.1)
[2017-12-10 22:07] LABS: PARTIAL THROMBOPLASTIN TIME 38.4 Seconds (25.6-37.1)
[2017-12-10 22:16] LABS: ABG ALLEN TEST YES; ARTERIAL BLOOD GAS HCO3 29.7 mmol/L (21-28); ARTERIAL BLOOD GAS O2 SAT 99.5 % (95-98); ARTERIAL BLOOD GAS PCO2 88 mm/Hg (35-45); ARTERIAL BLOOD GAS PH 7.23 (7.35-7.45); ARTERIAL BLOOD GAS PO2 199 mm/Hg (80-100); ARTERIAL BLOOD GAS TCO2 39.6 mmol/L (22-28)
[2017-12-10 22:22] LABS: ALB/GLOB RATIO 1.3 (1.0-2.1); ALBUMIN 4.2 g/dL (3.5-5.0); ALT/SGPT 26 U/L (21-72); AST/SGOT 24 U/L (17-59); B-TYPE NATRIURETIC PEPTIDE 285 pg/ml (0-900); BLOOD UREA NITROGEN 17 mg/dl (9-20); CALCIUM 8.8 mg/dL (8.4-10.2); GFR NON-AFRICAN AMERICAN > 60
[2017-12-10] MEDS ORDERED: levoFLOXacin 750 mg in D5W 150 ML BAG IVPB STA (22:22)
[2017-12-10] MEDS ORDERED: Magnesium Sulfate 2 gm/50 ml 2 GM/50 ML BAG IVPB ONE (22:22)
[2017-12-10] MEDS ORDERED: Naloxone 0.4 mg/ml Inj (Adult) IV ONE (22:24)
[2017-12-10] MEDS ORDERED: NALOXONE HCL 4 MG NS PRN (23:12)
[2017-12-10] MEDS ORDERED: Sodium Chloride 3% for Inhalation 4 ML VIAL.NEB IH PRN (23:15)
[2017-12-10] MEDS ORDERED: Alum-Mag Hydrox-Simethicone Susp (30 mL) PO PRN (23:18)
[2017-12-10] MEDS ORDERED: Magnesium Sulfate 2 gm/50 ml 2 GM/50 ML BAG ONE (23:47)
[2017-12-10] MEDS ORDERED: levoFLOXacin 750 mg in D5W 750 MG/150 ML BAG IVPB ONE (23:47)
[2017-12-11 00:42] LABS: BARBITURATES, UR NEGATIVE (NEGATIVE); BENZODIAZEPINES, UR NEGATIVE (NEGATIVE); OPIATES, UR POSITIVE (NEGATIVE); PHENCYCLIDINE, UR NEGATIVE (NEGATIVE)
[2017-12-11] MEDS ORDERED: methylPREDNISolone 40 MG in Sodium Chloride 0.9% 50 ML IVPB SCH (04:00)
[2017-12-11] MEDS ORDERED: MethylPREDNISolone 40 mg Vial IVP SCH (04:00)
[2017-12-11] MEDS ORDERED: MethylPREDNISolone 40 mg Vial ONE ×3 (06:28→18:40)
[2017-12-11 07:15] LABS: HEMOGLOBIN 12.1 g/dL (12.0-18.0); MEAN CELL VOLUME 94.5 fl (80.0-94.0); MEAN CORPUSCULAR HEMOGLOBIN 30.4 pg (27.0-31.0); MEAN CORPUSCULAR HGB CONC 32.1 g/dL (33.0-37.0); RBC 3.98 Mil/uL (4.40-5.90); RED CELL DISTRIBUTION WIDTH 16.1 % (11.5-14.5); WHITE BLOOD COUNT 4.3 K/uL (4.8-10.8)
[2017-12-11 07:28] LABS: ALB/GLOB RATIO 1.3 (1.0-2.1); ALBUMIN 4.2 g/dL (3.5-5.0); ALT/SGPT 24 U/L (21-72); AST/SGOT 25 U/L (17-59); BLOOD UREA NITROGEN 14 mg/dl (9-20); GFR NON-AFRICAN AMERICAN > 60
[2017-12-11] MEDS ORDERED: levoFLOXacin 750 mg in D5W 150 ML BAG IVPB SCH (09:00)
[2017-12-11] MEDS ORDERED: Albuterol-Ipratrop 3 mg / 0.5 (3 ml) UD ONE ×4 (09:02→21:45)
[2017-12-11] MEDS: Albuterol-Ipratrop 3 mg / 0.5 (3 ml) UD NEB SCH ×4 (09:04→21:46)
[2017-12-11] MEDS: Multivitamin With Minerals Tab PO SCH (09:21)
--- NOTE | 2017-12-11 09:41 | CARD ---
APPROVED REPORT Date of service: 12/10/2017 EKG Measurement Heart [id number] <Conclusion> Normal sinus rhythm Minimal voltage criteria for LVH, may be normal variant Abnormal ECG
--- NOTE | 2017-12-11 10:56 | RAD ---
Date of service: 12/10/2017 HISTORY: sob COMPARISON: Chest radiographs 06/09/2017. FINDINGS: LUNGS: No active pulmonary disease. PLEURA: Trace right pleural effusion blunts the right costophrenic sulcus. None is seen at the right. No pneumothorax bilaterally. CARDIOVASCULAR: Calcific atherosclerotic changes are seen related to the thoracic aorta. Normal cardiac size. No pulmonary vascular congestion. OSSEOUS STRUCTURES: No significant abnormalities. VISUALIZED UPPER ABDOMEN: Normal. OTHER FINDINGS: None. IMPRESSION: Trace right pleural effusion. No additional interval pathology appreciated bilaterally.
[2017-12-11] MEDS: MethylPREDNISolone 40 mg Vial IVP SCH ×2 (12:08→18:41)
--- NOTE | 2017-12-11 14:37 | CP.PCM.HP ---
<ArunTrevor - Last Filed: 12/11/17 14:23> History of Present Illness - History of Present Illness History of Present Illness: 57 y/o m with a PMHx of COPD, heroin dependence and HTN was admitted for COPD exacerbation. Pt presented to ED yesterday c/o SOB, chest tightness and productive cough for 3 days. Today, pt was seen and examined by bedside with Dr Cates. pt reports still feeling a little out of breath, cough and chest tightness have improved. Pt afebrile with Mary cute events overnight. pmhx: COPD, HTN pSHx: hernia surgery 2013 Fhx: denies shx: snorts heroin/cocaine daily, 1/2 ppd , denies alcohol use Present on Admission - Present on Admission Any Indicators Present on Admission: No Review of Systems - Constitutional Constitutional: absent: Chills, Fever - EENT Eyes: absent: Change in Vision Ears: absent: Ear Discharge, Ear Pain Nose/Mouth/Throat: absent: Sore Throat, Neck Pain, Neck Mass - Cardiovascular Cardiovascular: Chest Pain, Dyspnea. absent: Palpitations - Respiratory Respiratory: Cough, Dyspnea. absent: Hemoptysis - Gastrointestinal Gastrointestinal: absent: Abdominal Pain, Cramping, Diarrhea, Nausea, Vomiting - Genitourinary Genitourinary: absent: Difficulty Urinating, Dysuria, Hematuria, Urinary Frequency Past Patient History - Infectious Disease Hx of Infectious Diseases: None - Past Medical History & Family History Past Medical History?: Yes - Past Social History Drugs: Opiates - CARDIAC Hx Atrial Fibrillation: No Hx Cardia Arrhythmia: No Hx Congestive Heart Failure: No Hx Hypercholesterolemia: Yes Hx Hypertension: Yes Hx Mitral Valve Prolapse: No Hx Pacemaker: No Hx Peripheral Edema: No - PULMONARY Hx Asthma: Yes Hx Bronchitis: Yes Hx Chronic Obstructive Pulmonary Disease (COPD): Yes Hx Emphysema: No Hx Pneumonia: No Hx Pulmonary Embolism: Yes Hx Sleep Apnea: No - NEUROLOGICAL Hx Alzheimer's Disease: No Hx Dementia: No Hx Migraine: No Hx Multiple Sclerosis: No Hx Parkinson's Disease: No Hx Seizures: No Hx Transient Ischemic Attacks (TIA): No - HEENT Hx HEENT Problems: No Hx Blind: No Hx Cataracts: No Hx Deafness: No Hx Difficulty Chewing: No Hx Epistaxis: No Hx Glaucoma: No Hx Macular Degeneration: No Other/Comment: uses eye glasses - RENAL Hx Chronic Kidney Disease: Yes Hx Kidney Stones: No - ENDOCRINE/METABOLIC Hx Hyperthyroidism: No Hx Hypothyroidism: No - HEMATOLOGICAL/ONCOLOGICAL Hx Anemia: No Hx Human Immunodeficiency Virus (HIV): No Hx Sickle Cell Disease: No - INTEGUMENTARY Hx Dermatological Problems: Yes Other/Comment: skin very dry - MUSCULOSKELETAL/RHEUMATOLOGICAL Hx Arthritis: Yes - GASTROINTESTINAL Hx Gall Bladder Disease: Yes - GENITOURINARY/GYNECOLOGICAL Hx Genitourinary Disorders: No - PSYCHIATRIC Hx Psychophysiologic Disorder: No Hx Substance Use: Yes (Use Heroin) - SURGICAL HISTORY Hx Surgeries: Yes Hx Herniorrhaphy: Yes (left) Hx Musculoskeletal Surgery: Yes (LEFT KNEE) Other/Comment: collapsed lung - ANESTHESIA Hx Anesthesia: Yes Hx Anesthesia Reactions: No Hx Malignant Hyperthermia: No Meds Allergies/Adverse Reactions: Allergies Allergy/AdvReac Type Severity Reaction Status Date / Time No Known Allergies Allergy Verified 12/10/17 20:22 Physical Exam - Constitutional Appears: No Acute Distress - Head Exam Head Exam: ATRAUMATIC, NORMAL INSPECTION - Eye Exam Eye Exam: EOMI - ENT Exam ENT Exam: Mucous Membranes Dry - Neck Exam Neck exam: Positive for: Full Rom - Respiratory Exam Respiratory Exam: Rhonchi, Wheezes, NORMAL BREATHING PATTERN. absent: Rales - GI/Abdominal Exam GI & Abdominal Exam: Soft. absent: Distended, Rigid, Tenderness - Extremities Exam Extremities exam: Negative for: calf tenderness - Back Exam Back exam: absent: CVA tenderness (L), CVA tenderness (R) - Neurological Exam Neurological exam: Alert, Oriented x3 Results - Vital Signs Recent Vital Signs: Last Vital Signs Temp 98.3 F 12/11/17 11:45 Pulse 71 12/11/17 11:45 Resp 19 12/11/17 11:45 BP 152/71 H 12/11/17 11:45 Pulse Ox 95 12/11/17 11:45 - Labs Result Diagrams: 12/11/17 06:00 12/11/17 06:00 Labs: Laboratory Results - last 24 hr 12/10/17 12/10/17 12/10/17 21:40 21:40 21:40 WBC 4.9 RBC 3.78 L Hgb 11.4 L Hct 35.7 MCV 94.4 H MCH 30.3 MCHC 32.0 L RDW 16.0 H Plt Count 186 MPV 8.6 Neut % (Auto) 57.8 Lymph % (Auto) 20.0 [place] % (Auto) 13.5 H Eos % (Auto) 7.6 H Baso % (Auto) 1.1 Neut # (Auto) 2.8 Lymph # (Auto) 1.0 [place] # (Auto) 0.7 Eos # (Auto) 0.4 Baso # (Auto) 0.1 PT 11.9 INR 1.0 APTT 38.4 H pCO2 pO2 HCO3 ABG pH ABG Total CO2 ABG O2 Saturation ABG Base Excess Ryan Test ABG Potassium A-a O2 Difference Glucose Lactate FiO2 Crit Value Called To Crit Value Called By Crit Value Read Back Blood Gas Notified Time Sodium 140 Potassium 4.4 Chloride 100 Carbon Dioxide 30 Anion Gap 14 BUN 17 Creatinine 1.0 Est GFR ( Amer) > 60 Est GFR (Non-Af Amer) > 60 Random Glucose 90 Calcium 8.8 Total Bilirubin 0.2 AST 24 ALT 26 Alkaline Phosphatase 71 Troponin I < 0.0120 NT-Pro-B Natriuret Pep 285 Total Protein 7.4 Albumin 4.2 Globulin 3.3 Albumin/Globulin Ratio 1.3 Arterial Blood Potassium Urine Opiates Screen Urine Methadone Screen Ur Barbiturates Screen Ur Phencyclidine Scrn Ur Amphetamines Screen U Benzodiazepines Scrn U Oth Cocaine Metabols U Cannabinoids Screen Alcohol, Quantitative < 10 Influenza Typ A,B (EIA) 12/10/17 12/10/17 12/10/17 22:05 23:45 23:45 WBC RBC Hgb Hct MCV MCH MCHC RDW Plt Count MPV Neut % (Auto) Lymph % (Auto) [place] % (Auto) Eos % (Auto) Baso % (Auto) Neut # (Auto) Lymph # (Auto) [place] # (Auto) Eos # (Auto) Baso # (Auto) PT INR APTT pCO2 88 H* pO2 199 H HCO3 29.7 H ABG pH 7.23 L ABG Total CO2 39.6 H ABG O2 Saturation 99.5 H ABG Base Excess 6.1 H Ryan Test Yes ABG Potassium 4.3 A-a O2 Difference 33.0 Glucose 110 Lactate 0.5 L FiO2 48.0 Crit Value Called To Mohan ku Crit Value Called By 23 Crit Value Read Back Y Blood Gas Notified Time 2215 Sodium 136.0 Potassium Chloride 102.0 Carbon Dioxide Anion Gap BUN Creatinine Est GFR ( Amer) Est GFR (Non-Af Amer) Random Glucose Calcium Total Bilirubin AST ALT Alkaline Phosphatase Troponin I NT-Pro-B Natriuret Pep Total Protein Albumin Globulin Albumin/Globulin Ratio Arterial Blood Potassium 4.3 Urine Opiates Screen Positive H Urine Methadone Screen Negative Ur Barbiturates Screen Negative Ur Phencyclidine Scrn Negative Ur Amphetamines Screen Negative U Benzodiazepines Scrn Negative U Oth Cocaine Metabols Negative U Cannabinoids Screen Negative Alcohol, Quantitative Influenza Typ A,B (EIA) Negative for flu a/b 12/11/17 12/11/17 06:00 06:00 WBC 4.3 L RBC 3.98 L Hgb 12.1 Hct 37.6 MCV 94.5 H MCH 30.4 MCHC 32.1 L RDW 16.1 H Plt Count 180 MPV Neut % (Auto) Lymph % (Auto) [place] % (Auto) Eos % (Auto) Baso % (Auto) Neut # (Auto) Lymph # (Auto) [place] # (Auto) Eos # (Auto) Baso # (Auto) PT INR APTT pCO2 pO2 HCO3 ABG pH ABG Total CO2 ABG O2 Saturation ABG Base Excess Ryan Test ABG Potassium A-a O2 Difference Glucose Lactate FiO2 Crit Value Called To Crit Value Called By Crit Value Read Back Blood Gas Notified Time Sodium 139 Potassium 4.9 Chloride 101 Carbon Dioxide 30 Anion Gap 13 BUN 14 Creatinine 0.8 Est GFR ( Amer) > 60 Est GFR (Non-Af Amer) > 60 Random Glucose 125 H Calcium 9.0 Total Bilirubin 0.2 AST 25 ALT 24 Alkaline Phosphatase 72 Troponin I NT-Pro-B Natriuret Pep Total Protein 7.5 Albumin 4.2 Globulin 3.3 Albumin/Globulin Ratio 1.3 Arterial Blood Potassium Urine Opiates Screen Urine Methadone Screen Ur Barbiturates Screen Ur Phencyclidine Scrn Ur Amphetamines Screen U Benzodiazepines Scrn U Oth Cocaine Metabols U Cannabinoids Screen Alcohol, Quantitative Influenza Typ A,B (EIA) Assessment & Plan - Assessment and Plan (Free Text) Assessment: 57 y/o m with a PMHx of COPD, heroin dependence was admitted for management of COPD exacerbation. PLAN: --Duoneb QID --Solu-Medrol --Levofloxacin --F/U sputum and blood culture. --Home medications resumed --Continue management as ordered. Case discussed with MARCIO Jones PGY-2 - Date & Time Date: 12/11/17 Time: 10:00 <Jj Cates - Last Filed: 12/15/17 07:03> Results - Vital Signs Recent Vital Signs: Last Vital Signs Temp 98.4 F 12/14/17 08:07 Pulse 74 12/14/17 09:33 Resp 18 12/14/17 08:07 BP 147/75 12/14/17 09:33 Pulse Ox 97 12/14/17 08:07 - Labs Result Diagrams: 12/13/17 07:07 12/13/17 07:07 Assessment & Plan - Assessment and Plan (Free Text) Assessment: Patient was personally seen and examined by me in rounds with residents. Available labs and diagnostic data reviewed. Case, Patient's condition and management plan discussed with residents in rounds. Agree with resident's progress note. Plan: As ordered.
[2017-12-12] MEDS ORDERED: levoFLOXacin 750 mg in D5W 750 MG/150 ML BAG IVPB ONE (00:46)
[2017-12-12] MEDS ORDERED: MethylPREDNISolone 40 mg Vial ONE (00:46)
[2017-12-12] MEDS: MethylPREDNISolone 40 mg Vial IVP SCH ×3 (00:48→17:44)
[2017-12-12] MEDS: levoFLOXacin 750 mg in D5W 750 MG/150 ML BAG IVPB SCH ×2 (00:51→22:20)
[2017-12-12] MEDS: Albuterol-Ipratrop 3 mg / 0.5 (3 ml) UD NEB SCH ×3 (08:46→19:09)
[2017-12-12] MEDS: Multivitamin With Minerals Tab PO SCH (10:11)
[2017-12-12 10:51] LABS: ABG ALLEN TEST YES; ARTERIAL BLOOD GAS HCO3 32.1 mmol/L (21-28); ARTERIAL BLOOD GAS HEMOGLOBIN 11.5 g/dL (11.7-17.4); ARTERIAL BLOOD GAS O2 CAPACITY 15.7 mL/dL (16-24); ARTERIAL BLOOD GAS O2 CONTENT 15.6 ML/dL (15-23); ARTERIAL BLOOD GAS O2 SAT 99.1 % (95-98); ARTERIAL BLOOD GAS PCO2 58 mm/Hg (35-45); ARTERIAL BLOOD GAS PO2 99 mm/Hg (80-100); ARTERIAL BLOOD GAS TCO2 37.7 mmol/L (22-28)
[2017-12-12] MEDS: Pantoprazole 40 mg EC Tab PO SCH (12:02)
--- NOTE | 2017-12-12 14:17 | CT ---
Date of service: 12/12/2017 CT chest without IV contrast Indication: copd, sob Technique: Contiguous axial images were obtained through the chest without intravenous contrast enhancement. Sagittal and coronal reconstructions were generated and reviewed. This CT exam was performed using 1 or more of the following dose reduction techniques: Automated exposure control, adjustment of the MAA and/or kV according to patient size, and/or use of iterative reconstruction technique. Radiation dose (DLP): 372.44 MGy-cm. Comparison: Chest x-ray performed 12/10/17, CTA chest performed 04/24/16 Findings: Visualized portions of the inferior thyroid gland appear unremarkable. The noncontrast mediastinal and hilar vascular structures appear grossly unremarkable. The heart appears within normal limits of size. Coronary artery calcifications. Atherosclerotic calcifications of the aorta present. Sub cm mediastinal adenopathy, nonspecific. Centrilobular emphysema. Hyperinflation. Bibasilar atelectasis. Trace fluid along the right fissure. No pleural effusion. No pneumothorax. No suspicious pulmonary nodules measuring greater than 5 mm. Elevation of the right hemidiaphragm. Small hiatal hernia/esophageal wall thickening. Limited visualization of the noncontrast upper abdomen: Coarse hepatic and splenic calcifications. Partially imaged moderate diffuse constipation. Degenerative changes. Impression: Emphysema/COPD. Bibasilar atelectasis. Trace fluid along the right fissure. Small hiatal hernia/esophageal wall thickening. Limited visualization of the noncontrast upper abdomen: Coarse hepatic and splenic calcifications. Partially imaged moderate diffuse constipation.
--- NOTE | 2017-12-12 17:06 | CP.PCM.PN ---
Subjective - Date & Time of Evaluation Date of Evaluation: 12/12/17 Time of Evaluation: 10:15 - Subjective Subjective: 57 y/o m was seen and examined by bedside with Dr Sewell. Pt reports feeling well, denies chest pain and SOB has improved remarkably. Pt afebrile, tolerating PO with NO acute events overnight. Objective - Vital Signs/Intake and Output Vital Signs (last 24 hours): Temp Pulse Resp BP Pulse Ox 98.1 F 84 18 127/66 100 12/12/17 16:19 12/12/17 16:19 12/12/17 16:19 12/12/17 16:19 12/12/17 16:19 - Medications Medications: Current Medications Al Hydrox/Mg Hydrox/Simethicone (Maalox Plus 30 Ml) 30 ml PO QID PRN PRN Reason: Abdominal Discomfort Albuterol/Ipratropium (Duoneb 3 Mg/0.5 Mg (3 Ml) Ud) 3 ml NEB RQID [facility] Last Admin: 12/12/17 15:29 Dose: 3 ml Amlodipine Besylate (Norvasc) 10 mg PO DAILY [facility] Last Admin: 12/12/17 12:01 Dose: 10 mg Apixaban (Eliquis) 5 mg PO Q12 [facility]; Protocol Last Admin: 12/12/17 12:00 Dose: 5 mg Levofloxacin/Dextrose (Levaquin 750mg) 750 mg in 150 mls @ 100 mls/hr IVPB DAILY@2300 [facility] Last Admin: 12/12/17 00:51 Dose: 100 mls/hr Ibuprofen (Motrin Tab) 800 mg PO Q6 PRN PRN Reason: Pain, Mild (1-3) Stop: 12/13/17 23:20 Loperamide HCl (Imodium) 2 mg PO Q4 PRN PRN Reason: After Loose Bowel Movement Lorazepam (Ativan) 2 mg IM Q4 PRN PRN Reason: Agitation,Unable to Take Oral Methylprednisolone (Solu-Medrol) 40 mg IVP Q8 [facility] Multivitamins/Minerals (Therapeutic-M Tab) 1 tab PO DAILY [facility] Last Admin: 12/12/17 10:11 Dose: 1 tab Pantoprazole Sodium (Protonix Ec Tab) 40 mg PO DAILY [facility] Last Admin: 12/12/17 12:02 Dose: 40 mg Tamsulosin HCl (Flomax) 0.4 mg PO QPM LILY Temazepam (Restoril) 30 mg PO HS PRN PRN Reason: Insomnia - Labs Labs: 12/11/17 06:00 12/11/17 06:00 PT 11.9 Seconds (9.8-13.1) 12/10/17 21:40 INR 1.0 12/10/17 21:40 APTT 38.4 Seconds (25.6-37.1) H 12/10/17 21:40 - Additional Findings Additional findings: - Constitutional Appears: No Acute Distress - Head Exam Head Exam: ATRAUMATIC, NORMAL INSPECTION - Eye Exam Eye Exam: EOMI - ENT Exam ENT Exam: Mucous Membranes Dry - Neck Exam Neck exam: Positive for: Full Rom - Respiratory Exam Respiratory Exam: Wheezes at the end of expiration, NORMAL BREATHING PATTERN. absent: Rales - GI/Abdominal Exam GI & Abdominal Exam: Soft. absent: Distended, Rigid, Tenderness - Extremities Exam Extremities exam: Negative for: calf tenderness - Back Exam Back exam: absent: CVA tenderness (L), CVA tenderness (R) - Neurological Exam Neurological exam: Alert, Oriented x3 Assessment and Plan - Assessment and Plan (Free Text) Assessment: 57 y/o m with a PMHx of COPD, heroin dependence was admitted for management of COPD exacerbation. PLAN: --Still weezing on exam --Will order CT of Chest and echocardiogram --C/w Duoneb QID, Solu-Medrol, Levofloxacin --F/U sputum culture. --Blood culture with NO growth after 24 hrs. --Home medications resumed --Continue management as ordered
--- NOTE | 2017-12-12 20:00 | CARD ---
APPROVED REPORT Date of service: 12/12/2017 EXAM: Two-dimensional and M-mode echocardiogram with Doppler and color Doppler. Other Information Quality : GoodRhythm : NSR INDICATION Dyspnea COPD 2D DIMENSIONS IVSd0.83 (0.7-1.1cm)LVDd4.64 (3.9-5.9cm) LVOT Diameter2.19 (1.8-2.4cm)PWd1.04 (0.7-1.1cm) IVSs1.64 (0.8-1.2cm)LVDs2.66 (2.5-4.0cm) FS (%) 42.7 %PWs1.78 (0.8-1.2cm) M-Mode DIMENSIONS Left Atrium (MM)4.00 (2.5-4.0cm)IVSd1.00 (0.7-1.1cm) Aortic Root3.35 (2.2-3.7cm)LVDd5.50 (4.0-5.6cm) Aortic Cusp Exc.2.03 (1.5-2.0cm)PWd1.00 (0.7-1.1cm) IVSs1.59 cmFS (%) 47 % LVDs2.91 (2.0-3.8cm)PWs1.47 cm Aortic Valve AoV Peak Cputzngz552.6cm/sAoV VTI37.0cmAO Peak GR.14mmHg LVOT Peak Gdpztxew062.9cm/sLVOT VTI30.58cmAO Mean GR.8mmHg PAMELA (VMAX)1.24zh4ZUU (VTI)1.63cm2 Mitral Valve MV E Doisuuxs863.0cm/sMV DECEL QVTJ636grVE A Iydwrljc88.5cm/s MV ANZ56uxK/A ratio1.3MVA (PHT)4.36cm2 TDI Lateral E' Peak V10.67cm/sMedial E' Peak V10.59cm/sE/Lateral E'10.4 E/Medial E'10.5 Tricuspid Valve TR Peak Yywhhgok759vl/sRAP GFZVETHM10hjLtPW Peak Gr.40mmHg [id number] LEFT VENTRICLE The left ventricle is normal size. There is normal left ventricular wall thickness. The left ventricular systolic function is normal. The estimated ejection fraction is 60-65% No regional wall motion abnormalities noted.. Transmitral Doppler flow pattern is Grade II-pseudonormal filling dynamics. No left ventricle thrombus noted on this study. There is no ventricular septal defect visualized. There is no left ventricular aneurysm. There is no mass noted in the left ventricle. RIGHT VENTRICLE The right ventricle is normal size. There is normal right ventricular wall thickness. The right ventricular systolic function is normal. ATRIA The left atrium is mildly dilated. The right atrium size is normal. The interatrial septum is intact with no evidence for an atrial septal defect. AORTIC VALVE The aortic valve is normal in structure. No aortic regurgitation is present. There is no aortic valvular stenosis. There is no aortic valvular vegetation. MITRAL VALVE The mitral valve is normal in structure. There is no evidence of mitral valve prolapse. There is no mitral valve stenosis. There is mild mitral valve regurgitation noted. TRICUSPID VALVE The tricuspid valve is normal in structure. There is moderate tricuspid valve regurgitation noted. RVSP is calculated at 50 mm Hg. There is no tricuspid valve prolapse or vegetation. There is no tricuspid valve stenosis. PULMONIC VALVE The pulmonary valve is normal in structure. There is no pulmonic valvular regurgitation. There is no pulmonic valvular stenosis. GREAT VESSELS The aortic root is normal in size. The ascending aorta is normal in size. The pulmonary artery is normal. The IVC is normal in size and collapses >50% with inspiration. PERICARDIAL EFFUSION There is no pericardial effusion. There is no pleural effusion. <Conclusion> The estimated ejection fraction is 60-65% Transmitral Doppler flow pattern is Grade II-pseudonormal filling dynamics. The left atrium is mildly dilated. There is mild mitral valve regurgitation noted. There is moderate tricuspid valve regurgitation noted. RVSP is calculated at 50 mm Hg.
[2017-12-13] MEDS: MethylPREDNISolone 40 mg Vial IVP SCH ×3 (01:04→17:03)
[2017-12-13 07:43] LABS: HEMOGLOBIN 12.3 g/dL (12.0-18.0); MEAN CELL VOLUME 93.8 fl (80.0-94.0); MEAN CORPUSCULAR HEMOGLOBIN 30.5 pg (27.0-31.0); MEAN CORPUSCULAR HGB CONC 32.5 g/dL (33.0-37.0); RBC 4.04 Mil/uL (4.40-5.90); RED CELL DISTRIBUTION WIDTH 16.4 % (11.5-14.5)
[2017-12-13 07:48] LABS: BLOOD UREA NITROGEN 20 mg/dl (9-20); CALCIUM 9.4 mg/dL (8.4-10.2); GFR NON-AFRICAN AMERICAN > 60
[2017-12-13] MEDS: Albuterol-Ipratrop 3 mg / 0.5 (3 ml) UD NEB SCH ×4 (07:51→19:13)
[2017-12-13] MEDS: Pantoprazole 40 mg EC Tab PO SCH (08:35)
[2017-12-13] MEDS: Multivitamin With Minerals Tab PO SCH (08:35)
--- NOTE | 2017-12-13 13:13 | PQF ---
PROVIDER RESPONSE TEXT: Chronic REVIEWER QUERY TEXT: Acuity Specificity Pulmonary Embolism and Deep Venous Thrombosis are documented in the Medical Record. Currently being t reated with Eliquis. Please specify the acuity of these conditions with terms such as: -- Acute -- Chronic -- Acute and chronic -- Acute on chronic -- Other (please specify in the medical record) The patient's Clinical Indicators include: ER : PMH: Deep Vein Thrombosis, Pulmonary Embolism Previous Duplex report from 06/09/17 : partially occlusive deep venous thrombosis of the L proximal /m id femoral vein Medication: Eliquis Query created by: Rubia Betts on 12/12/2017 1:48 PM Electronically signed by: Hayden Sewell MD 12/13/2017 1:11 PM
--- NOTE | 2017-12-13 15:24 | CP.PCM.PN ---
Subjective - Date & Time of Evaluation Date of Evaluation: 12/13/17 Time of Evaluation: 09:40 - Subjective Subjective: 57 y/o m was seen and examined by bedside with Dr Sewell. Pt reports feeling well, denies chest pain and SOB has improved remarkably. Pt afebrile, tolerating PO with NO acute events overnight. Objective - Vital Signs/Intake and Output Vital Signs (last 24 hours): Temp Pulse Resp BP Pulse Ox 98.7 F 89 18 160/86 H 100 12/13/17 08:00 12/13/17 08:00 12/13/17 08:00 12/13/17 08:00 12/13/17 08:00 - Medications Medications: Current Medications Al Hydrox/Mg Hydrox/Simethicone (Maalox Plus 30 Ml) 30 ml PO QID PRN PRN Reason: Abdominal Discomfort Albuterol/Ipratropium (Duoneb 3 Mg/0.5 Mg (3 Ml) Ud) 3 ml NEB RQID [facility] Last Admin: 12/13/17 11:31 Dose: 3 ml Amlodipine Besylate (Norvasc) 10 mg PO DAILY [facility] Last Admin: 12/13/17 08:35 Dose: 10 mg Apixaban (Eliquis) 5 mg PO Q12 [facility]; Protocol Last Admin: 12/13/17 08:35 Dose: 5 mg Levofloxacin/Dextrose (Levaquin 750mg) 750 mg in 150 mls @ 100 mls/hr IVPB DAILY@2300 [facility] Last Admin: 12/12/17 22:20 Dose: 100 mls/hr Ibuprofen (Motrin Tab) 800 mg PO Q6 PRN PRN Reason: Pain, Mild (1-3) Stop: 12/13/17 23:20 Loperamide HCl (Imodium) 2 mg PO Q4 PRN PRN Reason: After Loose Bowel Movement Lorazepam (Ativan) 2 mg IM Q4 PRN PRN Reason: Agitation,Unable to Take Oral Methylprednisolone (Solu-Medrol) 40 mg IVP Q8 [facility] Last Admin: 12/13/17 08:35 Dose: 40 mg Multivitamins/Minerals (Therapeutic-M Tab) 1 tab PO DAILY [facility] Last Admin: 12/13/17 08:35 Dose: 1 tab Pantoprazole Sodium (Protonix Ec Tab) 40 mg PO DAILY [facility] Last Admin: 12/13/17 08:35 Dose: 40 mg Tamsulosin HCl (Flomax) 0.4 mg PO QPM [facility] Last Admin: 12/12/17 17:45 Dose: 0.4 mg Temazepam (Restoril) 30 mg PO HS PRN PRN Reason: Insomnia - Labs Labs: 12/13/17 07:07 12/13/17 07:07 PT 11.9 Seconds (9.8-13.1) 12/10/17 21:40 INR 1.0 12/10/17 21:40 APTT 38.4 Seconds (25.6-37.1) H 12/10/17 21:40 - Additional Findings Additional findings: - Constitutional Appears: No Acute Distress - Head Exam Head Exam: ATRAUMATIC, NORMAL INSPECTION - Eye Exam Eye Exam: EOMI - ENT Exam ENT Exam: Mucous Membranes Dry - Neck Exam Neck exam: Positive for: Full Rom - Respiratory Exam Respiratory Exam: Wheezes scattered but improved from yesterday, NORMAL BREATHING PATTERN. absent: Rales - GI/Abdominal Exam GI & Abdominal Exam: Soft. absent: Distended, Rigid, Tenderness - Extremities Exam Extremities exam: Negative for: calf tenderness - Back Exam Back exam: absent: CVA tenderness (L), CVA tenderness (R) - Neurological Exam Neurological exam: Alert, Oriented x3 Assessment and Plan - Assessment and Plan (Free Text) Assessment: 57 y/o m with a PMHx of COPD, heroin dependence was admitted for management of COPD exacerbation. PLAN: --Still weezing on exam. NOT fully recovered. --Will transfer to Med Surg --C/w Duoneb QID, Solu-Medrol, Levofloxacin --F/U sputum culture. --Echocardiogram: EF 60-65% --CT Chest: emphysema, bibasilar atelectasis. --Blood culture with NO growth after 48 hrs. --Continue management as ordered Case discussed with Dr Sewell who agrees with the above MARCIO Argueta PGY-2
[2017-12-13] MEDS: levoFLOXacin 750 mg in D5W 750 MG/150 ML BAG IVPB SCH (23:05)
[2017-12-14] MEDS: MethylPREDNISolone 40 mg Vial IVP SCH ×2 (00:11→09:37)
[2017-12-14] MEDS: Albuterol-Ipratrop 3 mg / 0.5 (3 ml) UD NEB SCH ×2 (07:52→11:44)
[2017-12-14 08:08] VITALS: BP 147/75; PULSE 74; RESP 18; TEMP 98.4; O2SAT 97
[2017-12-14] MEDS: Pantoprazole 40 mg EC Tab PO SCH (09:33)
[2017-12-14] MEDS: Multivitamin With Minerals Tab PO SCH (09:33)
--- NOTE | 2017-12-14 13:34 | CP.PCM.DIS ---
Provider - Provider Date of Admission: 12/12/17 11:07 Attending physician: Herve Quigley MD Consults: none Time Spent in preparation of Discharge (in minutes): 25 Diagnosis - Discharge Diagnosis (1) COPD exacerbation Status: Acute Hospital Course - Lab Results Lab Results: Micro Results 12/10/17 21:55 Blood Blood Culture - Preliminary NO GROWTH AFTER 3 DAYS 12/10/17 21:40 Blood Blood Culture - Preliminary NO GROWTH AFTER 3 DAYS 12/10/17 23:45 Sputum Gram Stain - Final 12/10/17 23:45 Sputum Sputum Culture - Final NORMAL ORAL DALIA 12/11/17 13:40 Nose MRSA Culture (Admit) - Final MRSA DETECTED Most Recent Lab Values WBC 8.0 K/uL (4.8-10.8) D 12/13/17 07:07 RBC 4.04 Mil/uL (4.40-5.90) L 12/13/17 07:07 Hgb 12.3 g/dL (12.0-18.0) 12/13/17 07:07 Hct 37.9 % (35.0-51.0) 12/13/17 07:07 MCV 93.8 fl (80.0-94.0) 12/13/17 07:07 MCH 30.5 pg (27.0-31.0) 12/13/17 07:07 MCHC 32.5 g/dL (33.0-37.0) L 12/13/17 07:07 RDW 16.4 % (11.5-14.5) H 12/13/17 07:07 Plt Count 213 K/uL (130-400) 12/13/17 07:07 MPV 8.6 fl (7.2-11.7) 12/10/17 21:40 Neut % (Auto) 57.8 % (50.0-75.0) 12/10/17 21:40 Lymph % (Auto) 20.0 % (20.0-40.0) 12/10/17 21:40 Barber % (Auto) 13.5 % (0.0-10.0) H 12/10/17 21:40 Eos % (Auto) 7.6 % (0.0-4.0) H 12/10/17 21:40 Baso % (Auto) 1.1 % (0.0-2.0) 12/10/17 21:40 Neut # (Auto) 2.8 K/uL (1.8-7.0) 12/10/17 21:40 Lymph # (Auto) 1.0 K/uL (1.0-4.3) 12/10/17 21:40 Barber # (Auto) 0.7 K/uL (0.0-0.8) 12/10/17 21:40 Eos # (Auto) 0.4 K/uL (0.0-0.7) 12/10/17 21:40 Baso # (Auto) 0.1 K/uL (0.0-0.2) 12/10/17 21:40 PT 11.9 Seconds (9.8-13.1) 12/10/17 21:40 INR 1.0 12/10/17 21:40 APTT 38.4 Seconds (25.6-37.1) H 12/10/17 21:40 pCO2 58 mm/Hg (35-45) H 12/12/17 10:43 pO2 99 mm/Hg (80-100) 12/12/17 10:43 HCO3 32.1 mmol/L (21-28) H 12/12/17 10:43 ABG pH 7.40 (7.35-7.45) 12/12/17 10:43 ABG Total CO2 37.7 mmol/L (22-28) H 12/12/17 10:43 ABG O2 Saturation 99.1 % (95-98) H 12/12/17 10:43 ABG O2 Content 15.6 ML/dL (15-23) 12/12/17 10:43 ABG Base Excess 9.3 mmol/L (-2.0-3.0) H 12/12/17 10:43 ABG Hemoglobin 11.5 g/dL (11.7-17.4) L 12/12/17 10:43 ABG Carboxyhemoglobin 2.3 % (0.5-1.5) H 12/12/17 10:43 POC ABG HHb (Measured) 0.9 % (0.0-5.0) 12/12/17 10:43 ABG Methemoglobin 1.4 % (0.0-3.0) 12/12/17 10:43 ABG O2 Capacity 15.7 mL/dL (16-24) L 12/12/17 10:43 Ryan Test Yes 12/12/17 10:43 ABG Potassium 4.3 mmol/L (3.6-5.2) 12/10/17 22:05 A-a O2 Difference 28.0 mm/Hg 12/12/17 10:43 Hgb O2 Saturation 95.4 % (95.0-98.0) 12/12/17 10:43 Sodium 136.0 mmol/L (132-148) 12/10/17 22:05 Chloride 102.0 mmol/L (98-107) 12/10/17 22:05 Glucose 110 mg/dL (75-110) 12/10/17 22:05 Lactate 0.5 mmol/L (0.7-2.1) L 12/10/17 22:05 FiO2 28.0 % 12/12/17 10:43 Crit Value Called To Mohan ku 12/10/17 22:05 Crit Value Called By 23 12/10/17 22:05 Crit Value Read Back Y 12/10/17 22:05 Blood Gas Notified Time 3367 12/10/17 22:05 Sodium 140 mmol/l (132-148) 12/13/17 07:07 Potassium 4.2 MMOL/L (3.6-5.0) 12/13/17 07:07 Chloride 103 mmol/L (98-107) 12/13/17 07:07 Carbon Dioxide 31 mmol/L (22-30) H 12/13/17 07:07 Anion Gap 10 (10-20) 12/13/17 07:07 BUN 20 mg/dl (9-20) 12/13/17 07:07 Creatinine 0.9 mg/dl (0.8-1.5) 12/13/17 07:07 Est GFR ( Amer) > 60 12/13/17 07:07 Est GFR (Non-Af Amer) > 60 12/13/17 07:07 Random Glucose 127 mg/dL (75-110) H 12/13/17 07:07 Calcium 9.4 mg/dL (8.4-10.2) 12/13/17 07:07 Total Bilirubin 0.2 mg/dl (0.2-1.3) 12/11/17 06:00 AST 25 U/L (17-59) 12/11/17 06:00 ALT 24 U/L (21-72) 12/11/17 06:00 Alkaline Phosphatase 72 U/L (38-126) 12/11/17 06:00 Troponin I < 0.0120 ng/mL (0.00-0.120) 12/10/17 21:40 NT-Pro-B Natriuret Pep 285 pg/ml (0-900) 12/10/17 21:40 Total Protein 7.5 G/DL (6.3-8.2) 12/11/17 06:00 Albumin 4.2 g/dL (3.5-5.0) 12/11/17 06:00 Globulin 3.3 gm/dL (2.2-3.9) 12/11/17 06:00 Albumin/Globulin Ratio 1.3 (1.0-2.1) 12/11/17 06:00 Arterial Blood Potassium 4.3 mmol/L (3.6-5.2) 12/10/17 22:05 Urine Opiates Screen Positive (NEGATIVE) H 12/10/17 23:45 Urine Methadone Screen Negative (NEGATIVE) 12/10/17 23:45 Ur Barbiturates Screen Negative (NEGATIVE) 12/10/17 23:45 Ur Phencyclidine Scrn Negative (NEGATIVE) 12/10/17 23:45 Ur Amphetamines Screen Negative (NEGATIVE) 12/10/17 23:45 U Benzodiazepines Scrn Negative (NEGATIVE) 12/10/17 23:45 U Oth Cocaine Metabols Negative (NEGATIVE) 12/10/17 23:45 U Cannabinoids Screen Negative (NEGATIVE) 12/10/17 23:45 Alcohol, Quantitative < 10 mg/dl (0-10) 12/10/17 21:40 Influenza Typ A,B (EIA) Negative for flu a/b (NEGATIVE) 12/10/17 23:45 - Hospital Course Hospital Course: 57 y/o m with a PMHx of COPD, heroin dependence was admitted for management of COPD exacerbation. Chest X-ray: no acute findings, Echocardiogram: EF 60-65%, CT Chest: emphysema, bibasilar atelectasis. Pt was treated with Duoneb QID, Solu- Medrol, and Levofloxacin. Pt slowly improved to his baseline. Today, pt was seen and examined by bedside with Dr Sewell. Pt reported feeling well, denied cough or SOB. ABG was unremarkable. Pt stable, tolerating PO, afebrile, will be discharged home with Rx for prednisone and Duoneb. - Date & Time of H&P Date of H&P: 12/11/17 Time of H&P: 14:23 Discharge Exam - Head Exam Head Exam: ATRAUMATIC, NORMOCEPHALIC - Additional Findings Additional findings: - Constitutional Appears: No Acute Distress - Head Exam Head Exam: ATRAUMATIC, NORMAL INSPECTION - Eye Exam Eye Exam: EOMI - ENT Exam ENT Exam: Mucous Membranes Dry - Neck Exam Neck exam: Positive for: Full Rom - Respiratory Exam Respiratory Exam: Mild wheezes (this is his baseline for his COPD), NORMAL BREATHING PATTERN. absent: Rales - GI/Abdominal Exam GI & Abdominal Exam: Soft. absent: Distended, Rigid, Tenderness - Extremities Exam Extremities exam: Negative for: calf tenderness - Back Exam Back exam: absent: CVA tenderness (L), CVA tenderness (R) - Neurological Exam Neurological exam: Alert, Oriented x3 Discharge Plan - Discharge Medications Prescriptions: Albuterol/Ipratropium [Duoneb 3 mg/0.5 mg (3 ml) UD] 3 ml NEB RQID #90 neb Levofloxacin [Levaquin] 500 mg PO DAILY #5 tablet Prednisone 40 mg PO BID #30 tab.ds.pk - Follow Up Plan Condition: IMPROVED Disposition: HOME/ ROUTINE Instructions: Exacerbation of COPD (DC) Additional Instructions: follow up with pmd in 1 week. Referrals: Herve Quigley MD [Medical Doctor] -
== END 2017-12-14 12:27 | disposition home or self-care (01) | DRG 140 ==
LOC: H.ER 20:17 → H.ERHOLD 22:35 → H.TEL 12-12 04:16 → OBSVTOIN 12-12 11:07 → H.TEL 12-12 21:38
PROVIDERS: ADMIT Family Medicine; ATTEND Family Medicine
PROC: 3E0F73Z Introduction of Anti-inflammatory into Respiratory Tract, Via Natural or Artificial Opening (ICD-10-PCS; principal; 2017-12-12)
DX: J44.1 Chronic obstructive pulmonary disease with (acute) exacerbation (principal); I27.82 Chronic pulmonary embolism; E87.2 Acidosis; F11.20 Opioid dependence, uncomplicated; I82.5Z3 Chronic embolism and thrombosis of unspecified deep veins of distal lower extremity, bilateral; I10 Essential (primary) hypertension; E78.00 Pure hypercholesterolemia, unspecified; Z87.11 Personal history of peptic ulcer disease; Z79.01 Long term (current) use of anticoagulants

== ENCOUNTER 2018-01-04 20:51 | Emergency (ER) | payer MEDICAID ==
[2018-01-04 20:52] VITALS: BMI 29.0
[2018-01-04 21:09] VITALS: BP 153/86; PULSE 119; RESP 20; TEMP 99.2; O2SAT 100
[2018-01-04 22:57] LABS: HEMOGLOBIN 11.9 g/dL (12.0-18.0); MEAN CELL VOLUME 93.2 fl (80.0-94.0); MEAN CORPUSCULAR HEMOGLOBIN 30.3 pg (27.0-31.0); MEAN CORPUSCULAR HGB CONC 32.5 g/dL (33.0-37.0); RBC 3.94 Mil/uL (4.40-5.90); WHITE BLOOD COUNT 5.6 K/uL (4.8-10.8)
[2018-01-04 23:01] LABS: CALCIUM 8.8 mg/dL (8.4-10.2); INR 1.1; PROTHROMBIN TIME 12.1 Seconds (9.8-13.1)
[2018-01-04 23:03] LABS: PARTIAL THROMBOPLASTIN TIME 31.5 Seconds (25.6-37.1)
--- NOTE | 2018-01-05 03:32 | ED PDOC ---
HPI: Psych/Substance Abuse Time Seen by Provider: 01/04/18 21:16 Chief Complaint (Nursing): Substance Abuse ED Caveat: Intoxicated History Per: EMS Additional Complaint(s): Patient was brought to the ER for opiate abuse. Patient admits to using heroin today, states he used one bag of heroin that he sniffed. States he doesn't remember what happened afterwards but he denies hitting his head or incurring any other injuries. Currently under the influence. Past Medical History Reviewed: Unable To Obtain Vital Signs: Last Vital Signs Temp 99.2 F 01/04/18 21:07 Pulse 119 H 01/04/18 21:07 Resp 20 01/04/18 21:07 BP 153/86 H 01/04/18 21:07 Pulse Ox 100 01/04/18 21:07 - Medical History PMH: Arthritis, Asthma, Bronchitis, COPD, Deep Vein Thrombosis, Gastrointestinal Ulcer, Gall Bladder Disease, HTN, Hypercholesterolemia, Pulmonary Embolism, Chronic Kidney Disease Denies: Alzheimer's Disease, Anemia, Atrial Fibrillation, Cardia Arrhythmia, CHF, Dementia, Emphysema, HIV, Hyperthyroidism, Hypothyroidism, Kidney Stones, Migraine, Mitral Valve Prolapse, Multiple Sclerosis, Parkinson's Disease, Peripheral Edema, Pneumonia, Seizures, Sickle Cell Disease, Sleep Apnea, TIA - Surgical History Surgical History: Hernia Repair Denies: Pacemaker - Family History Family History: States: Unknown Family Hx - Immunization History Hx Tetanus Toxoid Vaccination: Yes Hx Influenza Vaccination: No Hx Pneumococcal Vaccination: Yes - Home Medications Home Medications: Ambulatory Orders Medication Instructions Recorded Albuterol Sulfate [Ventolin Hfa] 2 puff IH Q6 PRN 12/11/17 Apixaban [Eliquis] 5 mg PO Q12 12/11/17 Pantoprazole Sodium [Protonix] 40 mg PO DAILY 12/11/17 Tamsulosin [Flomax] 0.4 mg PO QPM 12/11/17 Tiotropium [Spiriva] 18 mcg IH DAILY 12/11/17 amLODIPine [Norvasc] 10 mg PO DAILY 12/11/17 Albuterol/Ipratropium [Duoneb 3 3 ml NEB RQID #90 neb 12/14/17 mg/0.5 mg (3 ml) UD] Methylprednisolone [Medrol Dose 4 mg PO UPON ADM #21 mg 12/24/17 Pack (21 tabs)] - Allergies Allergies/Adverse Reactions: Allergies Allergy/AdvReac Type Severity Reaction Status Date / Time No Known Allergies Allergy Verified 01/04/18 21:07 Review of Systems Review Of Systems: ROS cannot be obtained secondary to pt's inabilty to answer questions. Physical Exam - Reviewed Nursing Documentation Reviewed: Yes Vital Signs Reviewed: Yes - Physical Exam Appears: Positive for: Non-toxic, No Acute Distress. Negative for: Well (Disheveled) Head Exam: Positive for: ATRAUMATIC, NORMAL INSPECTION, NORMOCEPHALIC Skin: Positive for: Normal Color, Warm, DRY Eye Exam: Positive for: Normal appearance, EOMI. Negative for: PERRL (Pupils constricted) ENT: Positive for: Normal ENT Inspection Neck: Positive for: Normal, Painless ROM Cardiovascular/Chest: Positive for: Regular Rate, Rhythm Respiratory: Positive for: CNT, Normal Breath Sounds Gastrointestinal/Abdominal: Positive for: Normal Exam, Soft. Negative for: Tenderness Back: Positive for: Normal Inspection Extremity: Positive for: Normal ROM Neurologic/Psych: Positive for: Oriented (x 3). Negative for: Alert (Drowsy, falls asleep, arousable to voice) - Laboratory Results Result Diagrams: 01/04/18 22:49 01/04/18 22:49 - ECG O2 Sat by Pulse Oximetry: 100 Medical Decision Making Medical Decision Makin Patient presenting with heroin abuse, no injuries --Well appearing, stable --Will monitor till sober 0300 --Resting comfortably 0500 --Patient is awake, alert, walking with steady gait --Clinically sober --Vitals improved --Will d/c home Disposition - Clinical Impression Clinical Impression: Drug use - Patient ED Disposition Is Patient to be Admitted: No - Disposition Referrals: Alireza Lerner MD [Family Provider] - [facility] [Outside] Disposition: Routine/Home Disposition Time: 05:24 Condition: IMPROVED Instructions: Drug Abuse and Drug Addiction (DC) Forms: [employer] (Lebanese)
== END 2018-01-05 05:47 | disposition home or self-care (01) ==
LOC: H.ER 20:51
DX: F11.10 Opioid abuse, uncomplicated (principal); I12.9 Hypertensive chronic kidney disease with stage 1 through stage 4 chronic kidney disease, or unspecified chronic kidney disease; E78.00 Pure hypercholesterolemia, unspecified; Z79.01 Long term (current) use of anticoagulants; Z86.711 Personal history of pulmonary embolism; Z86.718 Personal history of other venous thrombosis and embolism

== ENCOUNTER 2018-01-16 20:38 | Inpatient (IN) | payer MEDICAID ==
[2018-01-16 20:38] VITALS: BMI 29.0
[2018-01-16] MEDS ORDERED: Albuterol-Ipratrop 3 mg / 0.5 (3 ml) UD INH STA (21:04)
--- NOTE | 2018-01-16 21:14 | ED PDOC ---
HPI: SOB/CHF/COPD Time Seen by Provider: 01/16/18 20:56 Chief Complaint (Nursing): Shortness Of Breath Chief Complaint (Provider): Shortness Of Breath History Per: Patient History/Exam Limitations: no limitations Onset/Duration Of Symptoms: Days (x2) Current Symptoms Are (Timing): Still Present Additional Complaint(s): 57 y/o male with a PMHx of COPD presents to the ED for evaluation of shortness of breath, onset 2 days ago. Patient is well known to the ER for COPD and heroin abuse. Patient was last seen at [facility] yesterday and discharged home. Patient was seen by his PMD earlier today and reports of feeling better at that time. Patient states about two hours ago he began feeling short of breath and chest tightness. Patient admits to using two bags of heroin two hours ago. Patient states shortness of breath and chest tightness is also associated with cough and lightheadedness. Patient also has chronic leg edema that is no worse than usual. Denies fever. PMD: Emiliana Wilson (in [place] Past Medical History Reviewed: Historical Data, Nursing Documentation, Vital Signs Vital Signs: Last Vital Signs Temp 98.5 F 01/16/18 20:48 Pulse 103 H 01/16/18 20:48 Resp 23 01/16/18 20:48 BP 153/77 H 01/16/18 20:48 Pulse Ox 92 L 01/16/18 20:48 - Medical History PMH: Arthritis, Asthma, Bronchitis, COPD, Deep Vein Thrombosis, Gastrointestinal Ulcer, Gall Bladder Disease, HTN, Hypercholesterolemia, Pulmonary Embolism, Chronic Kidney Disease Denies: Alzheimer's Disease, Anemia, Atrial Fibrillation, Cardia Arrhythmia, CHF, Dementia, Emphysema, HIV, Hyperthyroidism, Hypothyroidism, Kidney Stones, Migraine, Mitral Valve Prolapse, Multiple Sclerosis, Parkinson's Disease, Peripheral Edema, Pneumonia, Seizures, Sickle Cell Disease, Sleep Apnea, TIA - Surgical History Surgical History: Hernia Repair Denies: Pacemaker - Family History Family History: States: Unknown Family Hx - Social History Current smoker - smoking cessation education provided: Yes Drugs: Other (Heroin ) - Immunization History Hx Tetanus Toxoid Vaccination: Yes Hx Influenza Vaccination: Yes (11/2017) Hx Pneumococcal Vaccination: Yes (2017) - Home Medications Home Medications: Ambulatory Orders Medication Instructions Recorded RX: Albuterol Sulfate [Ventolin 2 puff IH Q6 PRN 12/11/17 Hfa] RX: Apixaban [Eliquis] 5 mg PO Q12 12/11/17 RX: Pantoprazole Sodium [Protonix] 40 mg PO DAILY 12/11/17 RX: Tamsulosin [Flomax] 0.4 mg PO QPM 12/11/17 RX: amLODIPine [Norvasc] 10 mg PO DAILY 12/11/17 RX: Albuterol/Ipratropium [Duoneb 3 ml NEB RQID #90 neb 12/14/17 3 mg/0.5 mg (3 ml) UD] Albuterol/Ipratropium [Duoneb 3 6 ml IH Q4H PRN #100 neb 01/15/18 MG/3 Ml-0.5 MG/3 Ml 3 Ml] - Allergies Allergies/Adverse Reactions: Allergies Allergy/AdvReac Type Severity Reaction Status Date / Time No Known Allergies Allergy Verified 01/15/18 15:44 Review of Systems ROS Statement: Except As Marked, All Systems Reviewed And Found Negative Constitutional: Negative for: Fever Cardiovascular: Positive for: Chest Pain (Chest tightness) Respiratory: Positive for: Cough, Shortness of Breath Neurological: Positive for: Other (lightheadedness) Psych: Positive for: Other (Substance ause) Physical Exam - Reviewed Nursing Documentation Reviewed: Yes Vital Signs Reviewed: Yes - Physical Exam Appears: Positive for: In Acute Distress Head Exam: Positive for: ATRAUMATIC, NORMOCEPHALIC Skin: Positive for: Warm, Dry Eye Exam: Positive for: EOMI, PERRL ENT: Negative for: Pharyngeal Erythema, Tonsillar Exudate Neck: Positive for: Painless ROM, Supple Cardiovascular/Chest: Positive for: Regular Rate, Rhythm, Chest Non Tender, Ed vesta. Negative for: Murmur Respiratory: Positive for: Rhonchi (diffusely), Wheezing (diffuse expiratory and inspiratory wheeze), Respiratory Distress (mild ) Gastrointestinal/Abdominal: Positive for: Soft. Negative for: Tenderness Back: Positive for: Normal Inspection. Negative for: Decreased ROM Extremity: Positive for: Pedal Edema (Trace bilateral lower leg edea) Lymphatic: Negative for: Adenopathy Neurologic/Psych: Positive for: Alert, Other (Able to speak in complete sentences). Negative for: Motor/Sensory Deficits - Laboratory Results Result Diagrams: 01/20/18 06:00 01/20/18 06:00 - ECG O2 Sat by Pulse Oximetry: 92 (RA) Pulse Ox Interpretation: Normal - Critical Care Total Time (In Min): 30 Documented Critical Care: Time excludes all time spent performint seperately billable procedures Medical Decision Making Medical Decision Making: Time: 2104 Impression: COPD Exacerbation and Heroin Abuse Plan: -- ABG -- EKG -- Alcohol Serum -- CMP -- CBC with Differentials -- CXR Portable -- Duoneb 3mg/0.5mg (3ml) UD 9 ml INH -- SOLU-Medrol 125 mg IVP -- Blood Culture -- Peak Flow Pre/Post Tx -- Influenza A B Time: 2144 -- On re-evaluation, patient continues to have diffuse wheeze and shortness of breath. Patient needs hospitalization for further management. -- Discussed with Med Services, Dr. Cates who will admit patient under his service. Scribe Attestation: Documented by Kayley Plata, acting as a scribe for Rachel Piedra MD. Provider Scribe Attestation: All medical record entries made by the Scribe were at my direction and personally dictated by me. I have reviewed the chart and agree that the record accurately reflects my personal performance of the history, physical exam, medical decision making, and the department course for this patient. I have also personally directed, reviewed, and agree with the discharge instructions and disposition. Disposition - Clinical Impression Clinical Impression: COPD with acute exacerbation Counseled Patient/Family Regarding: Studies Performed, Diagnosis - Disposition Disposition Time: 21:45 Condition: FAIR - Pt Status Changed To: Hospital Disposition Of: Observation - POA Present On Arrival: None
[2018-01-16 21:28] LABS: ABG ALLEN TEST YES; ARTERIAL BLOOD GAS HCO3 28.5 mmol/L (21-28); ARTERIAL BLOOD GAS O2 SAT 89.5 % (95-98); ARTERIAL BLOOD GAS PCO2 67 mm/Hg (35-45); ARTERIAL BLOOD GAS PH 7.31 (7.35-7.45); ARTERIAL BLOOD GAS PO2 48 mm/Hg (80-100); ARTERIAL BLOOD GAS TCO2 35.8 mmol/L (22-28)
[2018-01-16 22:08] LABS: BASO % 0.8 % (0.0-2.0); EOS # 0.2 K/uL (0.0-0.7); EOS % 3.5 % (0.0-4.0); HEMOGLOBIN 10.4 g/dL (12.0-18.0); LYMPH # 1.3 K/uL (1.0-4.3); LYMPH % 28.5 % (20.0-40.0); MEAN CELL VOLUME 93.4 fl (80.0-94.0); MEAN CORPUSCULAR HEMOGLOBIN 29.9 pg (27.0-31.0); MEAN PLATELET VOLUME 8.3 fl (7.2-11.7); MONO # 0.6 K/uL (0.0-0.8); MONO % 13.4 % (0.0-10.0); NEUT # 2.4 K/uL (1.8-7.0); NEUT % 53.8 % (50.0-75.0); RBC 3.48 Mil/uL (4.40-5.90); RED CELL DISTRIBUTION WIDTH 15.9 % (11.5-14.5); WHITE BLOOD COUNT 4.5 K/uL (4.8-10.8)
[2018-01-16 22:52] LABS: ALB/GLOB RATIO 1.2 (1.0-2.1); ALBUMIN 3.8 g/dL (3.5-5.0); ALT/SGPT 23 U/L (21-72); AST/SGOT 21 U/L (17-59); BLOOD UREA NITROGEN 23 mg/dl (9-20); CALCIUM 8.5 mg/dL (8.4-10.2); GFR NON-AFRICAN AMERICAN 57
[2018-01-17] MEDS: Albuterol 0.083% Inhal Sol (2.5 mg/3 mL) UD INH SCH ×7 (00:35→23:30)
[2018-01-17] MEDS ORDERED: Albuterol 0.083% Inhal Sol (2.5 mg/3 mL) UD ONE ×3 (06:04→10:08)
--- NOTE | 2018-01-17 06:05 | CARD ---
APPROVED REPORT Date of service: 01/16/2018 EKG Measurement Heart [id number] <Conclusion> Sinus tachycardia Possible Left atrial enlargement Left anterior fascicular block Left ventricular hypertrophy Abnormal ECG
[2018-01-17 06:27] LABS: MEAN CELL VOLUME 93.4 fl (80.0-94.0); MEAN CORPUSCULAR HEMOGLOBIN 30.1 pg (27.0-31.0); MEAN CORPUSCULAR HGB CONC 32.3 g/dL (33.0-37.0); RBC 3.63 Mil/uL (4.40-5.90); RED CELL DISTRIBUTION WIDTH 15.8 % (11.5-14.5); WHITE BLOOD COUNT 3.7 K/uL (4.8-10.8)
[2018-01-17 06:48] LABS: BLOOD UREA NITROGEN 28 mg/dl (9-20); CALCIUM 8.9 mg/dL (8.4-10.2); GFR NON-AFRICAN AMERICAN > 60
[2018-01-17] MEDS ORDERED: Albuterol 0.042% Inhal Sol (1.25 mg/3 mL) UD ONE (08:29)
--- NOTE | 2018-01-17 08:38 | RAD ---
Date of service: 01/16/2018 HISTORY: sob COMPARISON: No prior. FINDINGS: LUNGS: No active pulmonary disease. PLEURA: Trace right pleural effusion remains in question. No left pleural effusion. No pneumothorax bilaterally. CARDIOVASCULAR: No aortic atherosclerotic calcification present. Normal cardiac size. No pulmonary vascular congestion. OSSEOUS STRUCTURES: No significant abnormalities. VISUALIZED UPPER ABDOMEN: Normal. OTHER FINDINGS: None. IMPRESSION: Trace right pleural effusion in question or fibrosis blunting right costophrenic sulcus. No acute infiltrate or interval cardiovascular changes bilaterally.
[2018-01-17] MEDS: Pantoprazole 40 mg EC Tab PO SCH (09:05)
[2018-01-17] MEDS ORDERED: methylPREDNISolone 60 MG in Sodium Chloride 0.9% 50 ML IVPB SCH (10:00)
[2018-01-17] MEDS ORDERED: MethylPREDNISolone 40 mg Vial ONE (10:09)
--- NOTE | 2018-01-17 11:55 | CP.PCM.HP ---
<Chico Almaraz - Last Filed: 01/17/18 12:18> History of Present Illness - History of Present Illness History of Present Illness: HPI: Pt is a 57 y/o man with hx of active Heroine Abuser, COPD/asthma, BPH, HTN and DVT who presented to ED with complaints of acute SOB/cough x2 days with worsening symptoms today. As per ED documentation, he was evaluated at [facility] and discharged home after treatment for COPD exacerbation. Was also seen by his PMD earlier today who reported he was doing better. Has stable BL LE edema that has been presents for years. Denies recent drug use, chest pain, diaphoresis, palpitations, calf pain, fever/chills, dysuria, n/v/d. ROS: + lightheadedness otherwise 12 point negative PMD: Dr. Wilson ED Course: Bronchodilator treatments x3 in ED Methylprednisolone 125mg IVP Present on Admission - Present on Admission Any Indicators Present on Admission: No Past Patient History - Infectious Disease Hx of Infectious Diseases: None - Past Medical History & Family History Past Medical History?: Yes - Past Social History Drugs: Other (Heroin ) - CARDIAC Hx Atrial Fibrillation: No Hx Cardia Arrhythmia: No Hx Congestive Heart Failure: No Hx Hypercholesterolemia: Yes Hx Hypertension: Yes Hx Mitral Valve Prolapse: No Hx Pacemaker: No Hx Peripheral Edema: No - PULMONARY Hx Asthma: Yes Hx Bronchitis: Yes Hx Chronic Obstructive Pulmonary Disease (COPD): Yes Hx Emphysema: No Hx Pneumonia: No Hx Pulmonary Embolism: Yes Hx Sleep Apnea: No - NEUROLOGICAL Hx Alzheimer's Disease: No Hx Dementia: No Hx Migraine: No Hx Multiple Sclerosis: No Hx Parkinson's Disease: No Hx Seizures: No Hx Transient Ischemic Attacks (TIA): No - HEENT Hx HEENT Problems: No Hx Blind: No Hx Cataracts: No Hx Deafness: No Hx Difficulty Chewing: No Hx Epistaxis: No Hx Glaucoma: No Hx Macular Degeneration: No Other/Comment: uses eye glasses - RENAL Hx Chronic Kidney Disease: Yes Hx Kidney Stones: No - ENDOCRINE/METABOLIC Hx Hyperthyroidism: No Hx Hypothyroidism: No - HEMATOLOGICAL/ONCOLOGICAL Hx Anemia: No Hx Human Immunodeficiency Virus (HIV): No Hx Sickle Cell Disease: No - INTEGUMENTARY Hx Dermatological Problems: Yes Other/Comment: skin very dry - MUSCULOSKELETAL/RHEUMATOLOGICAL Hx Arthritis: Yes - GASTROINTESTINAL Hx Gall Bladder Disease: Yes - GENITOURINARY/GYNECOLOGICAL Hx Genitourinary Disorders: No - PSYCHIATRIC Hx Psychophysiologic Disorder: No Hx Substance Use: Yes (Use Heroin) - SURGICAL HISTORY Hx Surgeries: Yes Hx Herniorrhaphy: Yes (left) Hx Musculoskeletal Surgery: Yes (LEFT KNEE) Other/Comment: collapsed lung - ANESTHESIA Hx Anesthesia: Yes Hx Anesthesia Reactions: No Hx Malignant Hyperthermia: No Meds Allergies/Adverse Reactions: Allergies Allergy/AdvReac Type Severity Reaction Status Date / Time No Known Allergies Allergy Verified 01/15/18 15:44 Physical Exam - Constitutional Appears: No Acute Distress, Older Than Stated Age - Head Exam Head Exam: NORMAL INSPECTION - Eye Exam Eye Exam: Normal appearance. absent: Nystagmus - ENT Exam ENT Exam: Mucous Membranes Moist - Respiratory Exam Respiratory Exam: Wheezes (Scattered, inspiratory and expiratory). absent: Accessory Muscle Use, Chest Wall Tenderness, Rales - Cardiovascular Exam Cardiovascular Exam: Tachycardia. absent: Irregular Rhythm, +S1, +S2, Systolic Murmur - GI/Abdominal Exam GI & Abdominal Exam: Normal Bowel Sounds, Soft. absent: Tenderness - Extremities Exam Extremities exam: Positive for: normal capillary refill, pedal edema (trace BL, non pitting, no ulcers), pedal pulses present - Neurological Exam Neurological exam: Alert, Oriented x3 - Psychiatric Exam Psychiatric exam: Normal Affect - Skin Skin Exam: Normal Color Results - Vital Signs Recent Vital Signs: Last Vital Signs Temp 98.1 F 01/17/18 08:21 Pulse 68 01/17/18 09:03 Resp 21 01/17/18 08:21 BP 126/76 01/17/18 09:03 Pulse Ox 99 01/17/18 08:21 - Labs Result Diagrams: 01/17/18 06:18 01/17/18 06:18 Labs: Laboratory Results - last 24 hr 01/16/18 01/16/18 01/16/18 21:19 21:55 21:55 WBC 4.5 L RBC 3.48 L Hgb 10.4 L Hct 32.5 L MCV 93.4 MCH 29.9 MCHC 32.0 L RDW 15.9 H Plt Count 212 MPV 8.3 Neut % (Auto) 53.8 Lymph % (Auto) 28.5 Grayson % (Auto) 13.4 H Eos % (Auto) 3.5 Baso % (Auto) 0.8 Neut # (Auto) 2.4 Lymph # (Auto) 1.3 Grayson # (Auto) 0.6 Eos # (Auto) 0.2 Baso # (Auto) 0.0 pCO2 67 H pO2 48 L HCO3 28.5 H ABG pH 7.31 L ABG Total CO2 35.8 H ABG O2 Saturation 89.5 L ABG Base Excess 5.2 H Ryan Test Yes ABG Potassium 4.3 A-a O2 Difference 18.0 Sodium 136.0 137 Chloride 101.0 100 Glucose 103 Lactate 0.9 FiO2 21.0 Potassium 4.6 Carbon Dioxide 32 H Anion Gap 10 BUN 23 H Creatinine 1.3 Est GFR ( Amer) > 60 Est GFR (Non-Af Amer) 57 Random Glucose 111 H Calcium 8.5 Total Bilirubin 0.2 AST 21 ALT 23 Alkaline Phosphatase 70 Total Protein 6.9 Albumin 3.8 Globulin 3.1 Albumin/Globulin Ratio 1.2 Arterial Blood Potassium 4.3 Alcohol, Quantitative < 10 Influenza Typ A,B (EIA) 01/16/18 01/17/18 01/17/18 21:55 06:18 06:18 WBC 3.7 L RBC 3.63 L Hgb 11.0 L Hct 33.9 L MCV 93.4 MCH 30.1 MCHC 32.3 L RDW 15.8 H Plt Count 232 MPV Neut % (Auto) Lymph % (Auto) Grayson % (Auto) Eos % (Auto) Baso % (Auto) Neut # (Auto) Lymph # (Auto) Grayson # (Auto) Eos # (Auto) Baso # (Auto) pCO2 pO2 HCO3 ABG pH ABG Total CO2 ABG O2 Saturation ABG Base Excess Ryan Test ABG Potassium A-a O2 Difference Sodium 138 Chloride 99 Glucose Lactate FiO2 Potassium 5.1 H Carbon Dioxide 31 H Anion Gap 13 BUN 28 H Creatinine 1.0 Est GFR ( Amer) > 60 Est GFR (Non-Af Amer) > 60 Random Glucose 144 H Calcium 8.9 Total Bilirubin AST ALT Alkaline Phosphatase Total Protein Albumin Globulin Albumin/Globulin Ratio Arterial Blood Potassium Alcohol, Quantitative Influenza Typ A,B (EIA) Negative for flu a/b Assessment & Plan - Assessment and Plan (Free Text) Assessment: Pt is a 57 y/o man with hx of active Heroine Abuser, COPD/asthma, BPH, HTN and DVT admitted for COPD exacerbation. COPD Ex Albuterol 2.5mg INH q4 Methylprednisolone 60mg q8 Pantaprazole 40mg po daily Counseled on drug cessation O2 prn F/U Bcx and Sputum Cx Kayexelate for hyperkalemia, 5.1 DVT ppx, home Eliquis Pt D/W Dr. Cates <[email or web address] Jeremi - Last Filed: 01/18/18 10:01> Results - Vital Signs Recent Vital Signs: Last Vital Signs Temp 97.9 F 01/18/18 08:51 Pulse 72 01/18/18 09:18 Resp 20 01/18/18 08:51 BP 128/73 01/18/18 09:18 Pulse Ox 96 01/18/18 08:51 - Labs Result Diagrams: 01/18/18 09:10 01/18/18 09:10 Labs: Laboratory Results - last 24 hr 01/18/18 01/18/18 09:10 09:10 WBC 7.6 D RBC 3.74 L Hgb 11.3 L Hct 35.2 MCV 94.1 H MCH 30.1 MCHC 32.0 L RDW 16.1 H Plt Count 253 MPV 9.1 Neut % (Auto) 93.2 H Lymph % (Auto) 5.2 L Grayson % (Auto) 1.5 Eos % (Auto) 0.0 Baso % (Auto) 0.1 Neut # (Auto) 7.1 H Lymph # (Auto) 0.4 L Grayson # (Auto) 0.1 Eos # (Auto) 0.0 Baso # (Auto) 0.0 Sodium 138 Potassium 4.3 Chloride 99 Carbon Dioxide 29 Anion Gap 14 BUN 20 Creatinine 0.8 Est GFR ( Amer) > 60 Est GFR (Non-Af Amer) > 60 Random Glucose 231 H Calcium 8.9 Phosphorus 3.1 Magnesium 2.3 Total Bilirubin 0.2 AST 14 L D ALT 12 L D Alkaline Phosphatase 72 Total Protein 6.9 Albumin 3.8 Globulin 3.1 Albumin/Globulin Ratio 1.2 Assessment & Plan - Assessment and Plan (Free Text) Assessment: Patient was personally seen and examined by me in rounds with residents. Available labs and diagnostic data reviewed. Case, Patient's condition and management plan discussed with residents in rounds. Agree with resident's progress note. Plan: As ordered.
[2018-01-17] MEDS ORDERED: Sod Polystyrene Sulf 15 gm/60 ml Susp PO ONE (12:26)
[2018-01-17] MEDS ORDERED: Sodium Chloride 3% for Inhalation 4 ML VIAL.NEB IH PRN (12:27)
[2018-01-18] MEDS: Albuterol 0.083% Inhal Sol (2.5 mg/3 mL) UD INH SCH ×4 (03:09→23:21)
[2018-01-18] MEDS: Pantoprazole 40 mg EC Tab PO SCH (09:18)
[2018-01-18 09:45] LABS: BASO % 0.1 % (0.0-2.0); HEMOGLOBIN 11.3 g/dL (12.0-18.0); LYMPH # 0.4 K/uL (1.0-4.3); LYMPH % 5.2 % (20.0-40.0); MEAN CELL VOLUME 94.1 fl (80.0-94.0); MEAN CORPUSCULAR HEMOGLOBIN 30.1 pg (27.0-31.0); MEAN PLATELET VOLUME 9.1 fl (7.2-11.7); MONO # 0.1 K/uL (0.0-0.8); MONO % 1.5 % (0.0-10.0); NEUT # 7.1 K/uL (1.8-7.0); NEUT % 93.2 % (50.0-75.0); PLATELET COUNT 253 K/uL (130-400); RBC 3.74 Mil/uL (4.40-5.90); RED CELL DISTRIBUTION WIDTH 16.1 % (11.5-14.5); WHITE BLOOD COUNT 7.6 K/uL (4.8-10.8)
[2018-01-18 09:56] LABS: ALB/GLOB RATIO 1.2 (1.0-2.1); ALBUMIN 3.8 g/dL (3.5-5.0); ALT/SGPT 12 U/L (21-72); AST/SGOT 14 U/L (17-59); BLOOD UREA NITROGEN 20 mg/dl (9-20); CALCIUM 8.9 mg/dL (8.4-10.2); GFR NON-AFRICAN AMERICAN > 60
[2018-01-18 10:32] LABS: ANISOCYTOSIS SLIGHT; LYMPHOCYTE 11 % (20-50); MONOCYTE 1 % (0-10); NEUTROPHIL 88 % (42-75); OVALOCYTES MODERATE; PLATELET ESTIMATE NORMAL (NORMAL); TOTAL CELLS COUNTED 100
[2018-01-18 10:33] LABS: LARGE PLATELETS PRESENT
--- NOTE | 2018-01-18 12:05 | PN ---
DATE: 01/18/2018 SUBJECTIVE: The patient seen and examined. Interim events noted. The patient remains in regular medical floor. Awake, responsive. Feels much better. Breathing improved. No chest pain or shortness of breath. PHYSICAL EXAMINATION GENERAL: The patient is in no acute distress. VITAL SIGNS: Stable. HEART EXAM: S1, S2 normal and regular. LUNGS: Good bilateral air exchange. exacerbation was much better than yesterday. ABDOMEN: Soft, nontender. No organomegaly noted. Bowel sounds are present and normal. EXTREMITIES: No edema. No calf swelling. No tenderness. No acute ischemia. CENTRAL NERVOUS EXAM: Essentially unchanged. DIAGNOSTIC DATA: Available diagnostic data reviewed. ASSESSMENT AND PLAN: Overall the patient's general medical condition is stable. Plan as ordered. Jj Cates MD
[2018-01-18] MEDS: MethylPREDNISolone 40 mg Vial IV SCH (16:41)
[2018-01-19] MEDS: MethylPREDNISolone 40 mg Vial IV SCH ×3 (00:30→16:54)
[2018-01-19] MEDS: Albuterol 0.083% Inhal Sol (2.5 mg/3 mL) UD INH SCH ×6 (03:44→23:30)
[2018-01-19] MEDS: Pantoprazole 40 mg EC Tab PO SCH (08:22)
--- NOTE | 2018-01-19 11:49 | PN ---
DATE: 01/19/2018 SUBJECTIVE: The patient seen and examined. Interim events noted. The patient remains in regular medical floor. The patient feels okay. Denies any specific complaint. No chest pain. No shortness of breath. Able to do his ADLs, going to bathroom, ambulating a little bit without any shortness of breath on exertion. PHYSICAL EXAMINATION: GENERAL: The patient is in no acute distress. VITAL SIGNS: Stable. HEART: S1 and S2. Normal and regular. LUNGS: Good bilateral air exchange. ABDOMEN: Soft and nontender. EXTREMITIES: No edema. No calf swelling. No tenderness. No acute ischemia. CENTRAL NERVOUS SYSTEM: Exam is essentially unchanged. DIAGNOSTIC DATA: Available diagnostic data reviewed. ASSESSMENT AND PLAN: Overall the patient's general medical condition is slowly improving. Plan as ordered. Jj Cates MD
[2018-01-20] MEDS: MethylPREDNISolone 40 mg Vial IV SCH ×2 (00:04→08:27)
[2018-01-20] MEDS: Albuterol-Ipratrop 3 mg / 0.5 (3 ml) UD INH PRN ×2 (00:18→07:04)
[2018-01-20] MEDS: Albuterol 0.083% Inhal Sol (2.5 mg/3 mL) UD INH SCH ×2 (04:02→07:06)
[2018-01-20 07:43] VITALS: BP 147/81; PULSE 73; RESP 19; TEMP 97.8
[2018-01-20 07:52] LABS: HEMOGLOBIN 12.4 g/dL (12.0-18.0); MEAN CELL VOLUME 93.2 fl (80.0-94.0); MEAN CORPUSCULAR HEMOGLOBIN 30.1 pg (27.0-31.0); MEAN CORPUSCULAR HGB CONC 32.3 g/dL (33.0-37.0); RBC 4.11 Mil/uL (4.40-5.90); RED CELL DISTRIBUTION WIDTH 15.8 % (11.5-14.5); WHITE BLOOD COUNT 8.1 K/uL (4.8-10.8)
[2018-01-20 08:05] LABS: ALB/GLOB RATIO 1.1 (1.0-2.1); ALBUMIN 3.7 g/dL (3.5-5.0); ALT/SGPT 16 U/L (21-72); AST/SGOT 17 U/L (17-59); BLOOD UREA NITROGEN 23 mg/dl (9-20); GFR NON-AFRICAN AMERICAN > 60
[2018-01-20] MEDS: Pantoprazole 40 mg EC Tab PO SCH (08:31)
--- NOTE | 2018-01-21 09:12 | PN ---
DATE: 01/20/2018 SUBJECTIVE: The patient seen and examined. Interim events noted. The patient feels much better, breathing improved. Nursing did report some cough but according to the patient, it is very minimal and not discomforting and it is usual. PHYSICAL EXAMINATION: GENERAL: The patient is in no acute distress. VITAL SIGNS: Stable. HEART: S1 and S2 normal and regular. LUNGS: Improved bilateral air exchange. No rhonchi. No wheezing. ABDOMEN: Soft and nontender. EXTREMITIES: No edema. No calf swelling. No tenderness. No acute ischemia. CENTRAL NERVOUS SYSTEM: Exam is essentially unchanged. DIAGNOSTIC DATA: Available diagnostic data reviewed. ASSESSMENT AND PLAN: Overall the patient's general medical condition is stable and improved. Plan as ordered. Jj Cates MD
[2018-01-21 15:13] VITALS: O2SAT 92
--- NOTE | 2018-02-04 12:36 | PQF ---
PROVIDER RESPONSE TEXT: CKD stage 2 REVIEWER QUERY TEXT: Kidney Disease, Chronic CKD Stage Chronic Kidney Disease (CKD) is documented in the Medical Record. Please specify the disease stage ( includes probable or suspected) Such as: -- Chronic kidney disease Stage 1 -- Chronic kidney disease Stage 2 -- Chronic kidney disease Stage 3 -- Chronic kidney disease Stage 4 -- Chronic kidney disease Stage 5 -- Chronic kidney disease Stage 5, requiring dialysis -- End Stage Renal Disease -- Other, please specify Stages are defined by the [employer] as follows: CKD Stage I GFR >= 90 ml / min per 1.73 m2 and persistent albuminuria CKD Stage 2 GFR between 60 and 89 with persistent albuminuria CKD Stage 3 GFR between 30 and 59 CKD Stage 4 GFR between 15 and 29 CKD Stage 5 GFR between <15 or End Stage Renal Disease The patient's Clinical Indicators include: XXX Query created by: Danielle Foss on 01/23/2018 10:37 AM Electronically signed by: Jj Cates 02/04/2018 12:33 PM
== END 2018-01-20 10:16 | disposition left against medical advice (07) | DRG 88 ==
LOC: H.ER 20:38 → H.ERHOLD 22:48 → H.MEDSURG1 01-17 14:52 → OBSVTOIN 01-18 11:36
PROVIDERS: ADMIT Internal Medicine; ATTEND Internal Medicine
DX: J44.1 Chronic obstructive pulmonary disease with (acute) exacerbation (principal); J98.19 Other pulmonary collapse; E87.5 Hyperkalemia; F11.10 Opioid abuse, uncomplicated; N18.2 Chronic kidney disease, stage 2 (mild); N40.0 Benign prostatic hyperplasia without lower urinary tract symptoms; Z86.711 Personal history of pulmonary embolism; I12.9 Hypertensive chronic kidney disease with stage 1 through stage 4 chronic kidney disease, or unspecified chronic kidney disease; Z87.11 Personal history of peptic ulcer disease; K82.9 Disease of gallbladder, unspecified; M19.90 Unspecified osteoarthritis, unspecified site; E78.00 Pure hypercholesterolemia, unspecified; F17.200 Nicotine dependence, unspecified, uncomplicated

== ENCOUNTER 2018-04-01 15:36 | Emergency (ER) | payer MEDICAID ==
[2018-04-01 15:37] VITALS: BMI 29.0
--- NOTE | 2018-04-01 16:35 | ED PDOC ---
HPI: Psych/Substance Abuse Time Seen by Provider: 04/01/18 15:48 Chief Complaint (Nursing): Altered Mental Status Chief Complaint (Provider): substance abuse History Per: Patient, EMS History/Exam Limitations: no limitations Onset/Duration Of Symptoms: Hrs Current Symptoms Are (Timing): Still Present Additional Complaint(s): Sammy Bird is a 57 year old male, with a past medical history of COPD and substance abuse, specifically heroin, who was brought to the emergency department by EMS and [place] PD after patient was found by the police standing but otherwise poorly responsive. According to EMS, patient seemed "frozen," he is currently sleepy but arousable and orientedx3. He denies using any heroin or drinking alcohol. Patient offers no complaints at this time. PMD: Alireza Lerner Past Medical History Reviewed: Historical Data, Nursing Documentation, Vital Signs Vital Signs: Last Vital Signs Temp 98.3 F 04/01/18 16:06 Pulse 88 04/01/18 16:06 Resp 18 04/01/18 16:06 BP 141/95 H 04/01/18 16:06 Pulse Ox 96 04/01/18 16:06 - Medical History PMH: Arthritis, Asthma, Bronchitis, COPD, Deep Vein Thrombosis, Gastrointestinal Ulcer, Gall Bladder Disease, HTN, Hypercholesterolemia, Pulmonary Embolism, Chronic Kidney Disease Denies: Alzheimer's Disease, Anemia, Atrial Fibrillation, Cardia Arrhythmia, CHF, Dementia, Emphysema, HIV, Hyperthyroidism, Hypothyroidism, Kidney Stones, Migraine, Mitral Valve Prolapse, Multiple Sclerosis, Parkinson's Disease, Peripheral Edema, Pneumonia, Seizures, Sickle Cell Disease, Sleep Apnea, TIA - Surgical History Surgical History: Hernia Repair Denies: Pacemaker - Family History Family History: States: Unknown Family Hx - Social History Current smoker - smoking cessation education provided: No Alcohol: None Drugs: Opiates (heroin) - Immunization History Hx Tetanus Toxoid Vaccination: Yes Hx Influenza Vaccination: Yes (11/2017) Hx Pneumococcal Vaccination: Yes (2017) - Home Medications Home Medications: Ambulatory Orders Medication Instructions Recorded Albuterol Sulfate [Ventolin Hfa] 2 puff IH Q6 PRN 12/11/17 Apixaban [Eliquis] 5 mg PO Q12 12/11/17 Pantoprazole Sodium [Protonix] 40 mg PO DAILY 12/11/17 Tamsulosin [Flomax] 0.4 mg PO QPM 12/11/17 amLODIPine [Norvasc] 10 mg PO DAILY 12/11/17 Albuterol/Ipratropium [Duoneb 3 3 ml NEB RQID #90 neb 12/14/17 mg/0.5 mg (3 ml) UD] - Allergies Allergies/Adverse Reactions: Allergies Allergy/AdvReac Type Severity Reaction Status Date / Time No Known Allergies Allergy Verified 02/15/18 22:08 Review of Systems ROS Statement: Except As Marked, All Systems Reviewed And Found Negative Physical Exam - Reviewed Nursing Documentation Reviewed: Yes Vital Signs Reviewed: Yes - Physical Exam Appears: Positive for: No Acute Distress (Sleepy but arousable) Head Exam: Positive for: ATRAUMATIC, NORMAL INSPECTION, NORMOCEPHALIC Skin: Positive for: Normal Color, Warm, Dry Eye Exam: Positive for: Normal appearance, EOMI, PERRL Neck: Positive for: Normal, Painless ROM Cardiovascular/Chest: Positive for: Regular Rate, Rhythm. Negative for: Murmur Respiratory: Positive for: Normal Breath Sounds. Negative for: Respiratory Distress Gastrointestinal/Abdominal: Positive for: Normal Exam, Soft. Negative for: Tenderness Back: Positive for: Normal Inspection. Negative for: L CVA Tenderness, R CVA Tenderness Extremity: Positive for: Normal ROM (upper and lower extremities). Negative for: Deformity, Swelling Neurologic/Psych: Positive for: Alert, Oriented (x3) - ECG O2 Sat by Pulse Oximetry: 96 (RA) Pulse Ox Interpretation: Normal Medical Decision Making Medical Decision Making: Time: 15:48 Initial Impression: Mild opiate intoxication Initial Plan: --Reevaluation 15:50 -Observe until patient is able to maintain alertness. 1700 Stable for discharge. Scribe Attestation: Documented by Baron Alanis, acting as a scribe for Rachel Piedra MD Provider Scribe Attestation: All medical record entries made by the Scribe were at my direction and personally dictated by me. I have reviewed the chart and agree that the record accurately reflects my personal performance of the history, physical exam, medical decision making, and the department course for this patient. I have also personally directed, reviewed, and agree with the discharge instructions and disposition. Disposition - Clinical Impression Clinical Impression: Substance abuse - Disposition Disposition: Routine/Home Disposition Time: 17:00 Condition: IMPROVED Instructions: Opioid Use Disorder
[2018-04-01 18:13] VITALS: BP 138/76; PULSE 85; RESP 16; TEMP 98; O2SAT 98
== END 2018-04-01 18:05 | disposition home or self-care (01) ==
LOC: H.ER 15:36
DX: F11.20 Opioid dependence, uncomplicated (principal); E78.00 Pure hypercholesterolemia, unspecified; I12.9 Hypertensive chronic kidney disease with stage 1 through stage 4 chronic kidney disease, or unspecified chronic kidney disease; J44.9 Chronic obstructive pulmonary disease, unspecified; Z79.01 Long term (current) use of anticoagulants; Z86.711 Personal history of pulmonary embolism; Z86.718 Personal history of other venous thrombosis and embolism

== ENCOUNTER 2018-04-06 01:29 | Emergency (ER) | payer MEDICAID ==
[2018-04-06 01:31] VITALS: BMI 28.1
--- NOTE | 2018-04-06 03:58 | ED PDOC ---
HPI: Psych/Substance Abuse Time Seen by Provider: 04/06/18 02:51 Chief Complaint (Nursing): Substance Abuse Chief Complaint (Provider): Substance Abuse and COPD ED Caveat: Acuity of Condition History/Exam Limitations: clinical condition, intoxication Onset/Duration Of Symptoms: Hrs Current Symptoms Are (Timing): Still Present (Pt presents to the ED via EMS where they found him in the corner of a [place] just staring straight ahead; the patient indicates that he does heroin and last did heroin eariler in the day. The patient vitials are stable and he is mildly coherent on presentation.) Past Medical History Reviewed: Historical Data, Nursing Documentation, Vital Signs Vital Signs: Last Vital Signs Temp 98.6 F 04/06/18 01:31 Pulse 90 04/06/18 02:29 Resp 16 04/06/18 02:29 BP 139/73 04/06/18 02:29 Pulse Ox 100 04/06/18 02:29 - Medical History PMH: Arthritis, Asthma, Bronchitis, COPD, Deep Vein Thrombosis, Gastrointestinal Ulcer, Gall Bladder Disease, HTN, Hypercholesterolemia, Pulmonary Embolism, Chronic Kidney Disease Denies: Alzheimer's Disease, Anemia, Atrial Fibrillation, Cardia Arrhythmia, CHF, Dementia, Emphysema, HIV, Hyperthyroidism, Hypothyroidism, Kidney Stones, Migraine, Mitral Valve Prolapse, Multiple Sclerosis, Parkinson's Disease, Peripheral Edema, Pneumonia, Seizures, Sickle Cell Disease, Sleep Apnea, TIA - Surgical History Surgical History: Hernia Repair Denies: Pacemaker - Family History Family History: States: Unknown Family Hx - Immunization History Hx Tetanus Toxoid Vaccination: Yes Hx Influenza Vaccination: Yes (11/2017) Hx Pneumococcal Vaccination: Yes (2017) - Home Medications Home Medications: Ambulatory Orders Medication Instructions Recorded Albuterol Sulfate [Ventolin Hfa] 2 puff IH Q6 PRN 12/11/17 Apixaban [Eliquis] 5 mg PO Q12 12/11/17 Pantoprazole Sodium [Protonix] 40 mg PO DAILY 12/11/17 Tamsulosin [Flomax] 0.4 mg PO QPM 12/11/17 amLODIPine [Norvasc] 10 mg PO DAILY 12/11/17 Albuterol/Ipratropium [Duoneb 3 3 ml NEB RQID #90 neb 12/14/17 mg/0.5 mg (3 ml) UD] - Allergies Allergies/Adverse Reactions: Allergies Allergy/AdvReac Type Severity Reaction Status Date / Time No Known Allergies Allergy Verified 04/06/18 01:31 Review of Systems ROS Statement: Except As Marked, All Systems Reviewed And Found Negative Neurological: Positive for: Headache Physical Exam - Reviewed Nursing Documentation Reviewed: Yes Vital Signs Reviewed: Yes - Physical Exam Appears: Positive for: Well, Non-toxic, No Acute Distress Head Exam: Positive for: ATRAUMATIC, NORMAL INSPECTION Skin: Positive for: Normal Color, Warm, Dry. Negative for: Diaphoresis, Pallor, Rash Eye Exam: Positive for: Normal appearance ENT: Positive for: Normal ENT Inspection Neck: Positive for: Normal, Painless ROM, Supple. Negative for: Decreased ROM Cardiovascular/Chest: Positive for: Regular Rate, Rhythm Respiratory: Positive for: Wheezing - Laboratory Results Result Diagrams: 04/06/18 04:04 - ECG ECG Rhythm: Positive for: Normal QRS, Normal ST Segment, Sinus Rhythm, Right Bu ndle Branch Block Rate: 75 O2 Sat by Pulse Oximetry: 100 Pulse Ox Interpretation: Normal Disposition - Clinical Impression Clinical Impression: COPD (chronic obstructive pulmonary disease), Opiate overdose Counseled Patient/Family Regarding: Studies Performed, Diagnosis, Need For Followup - Disposition Disposition: Routine/Home Disposition Time: 06:40 Condition: IMPROVED Instructions: Chronic Obstructive Pulmonary Disease (COPD), Including Emphysema, Narcotic Overdose , Narcotic Overdose (DC), Risk Factors for COPD Forms: [employer] ([place])
[2018-04-06 04:25] LABS: BASO % 0.3 % (0.0-2.0); EOS # 0.3 K/uL (0.0-0.7); EOS % 6.7 % (0.0-4.0); HEMOGLOBIN 11.6 g/dL (12.0-18.0); LYMPH # 0.9 K/uL (1.0-4.3); LYMPH % 21.8 % (20.0-40.0); MEAN CELL VOLUME 93.6 fl (80.0-94.0); MEAN CORPUSCULAR HEMOGLOBIN 30.1 pg (27.0-31.0); MEAN CORPUSCULAR HGB CONC 32.2 g/dL (33.0-37.0); MONO # 0.5 K/uL (0.0-0.8); MONO % 12.9 % (0.0-10.0); NEUT # 2.4 K/uL (1.8-7.0); NEUT % 58.3 % (50.0-75.0); NRBC % 0.1 % (0.0-0.0); RBC 3.86 Mil/uL (4.40-5.90); RED CELL DISTRIBUTION WIDTH 16.3 % (11.5-14.5); WHITE BLOOD COUNT 4.2 K/uL (4.8-10.8)
[2018-04-06] MEDS ORDERED: Albuterol-Ipratrop 3 mg / 0.5 (3 ml) UD INH STA (05:28)
[2018-04-06] MEDS ORDERED: Albuterol-Ipratrop 3 mg / 0.5 (3 ml) UD ONE ×2 (06:15→06:19)
[2018-04-06 06:50] VITALS: BP 146/75; RESP 18; TEMP 98.9
[2018-04-06 18:39] VITALS: PULSE 75; O2SAT 100
--- NOTE | 2018-04-07 10:05 | CARD ---
APPROVED REPORT Date of service: 04/06/2018 EKG Measurement Heart [id number] <Conclusion> Sinus rhythm with occasional premature ventricular complexes Possible Left atrial enlargement Incomplete right bundle branch block Left anterior fascicular block Left ventricular hypertrophy Abnormal ECG
== END 2018-04-06 06:49 | disposition home or self-care (01) ==
LOC: H.ER 01:29
DX: T40.601A Poisoning by unspecified narcotics, accidental (unintentional), initial encounter (principal); J44.9 Chronic obstructive pulmonary disease, unspecified; E78.00 Pure hypercholesterolemia, unspecified; I12.9 Hypertensive chronic kidney disease with stage 1 through stage 4 chronic kidney disease, or unspecified chronic kidney disease; I49.3 Ventricular premature depolarization; Z79.01 Long term (current) use of anticoagulants; Z86.711 Personal history of pulmonary embolism; Z86.718 Personal history of other venous thrombosis and embolism

== ENCOUNTER 2018-05-16 18:42 | Inpatient (IN) | payer MEDICAID ==
[2018-05-16] MEDS ORDERED: Albuterol-Ipratrop 3 mg / 0.5 (3 ml) UD INH STA ×5 (19:38→22:19)
[2018-05-16] MEDS ORDERED: Albuterol-Ipratrop 3 mg / 0.5 (3 ml) UD ONE (20:13)
--- NOTE | 2018-05-16 20:38 | ED PDOC ---
HPI: SOB/CHF/COPD Time Seen by Provider: 05/16/18 19:10 Chief Complaint (Nursing): Shortness Of Breath Chief Complaint (Provider): Shortness of Breath, Wheezing History Per: Patient History/Exam Limitations: no limitations Onset/Duration Of Symptoms: Hrs (earlier today) Current Symptoms Are (Timing): Still Present Additional Complaint(s): 57 year old male with pmhx COPD and htn presents to the ED for evaluation of difficulty breathing. Patient states he was [place] when he started wheezing and feeling short of breath associated with chest tightness. Patient is unsure of his COPD triggers, but admits to smoking 1/2 pack of cigarettes daily for 44 years. Otherwise, denies chest pain, fever, and cough. Of note, patient states he was taking some "pills" for his COPD, but has since run out and does not remember the name. PMD: none provided Past Medical History Reviewed: Historical Data, Nursing Documentation, Vital Signs Vital Signs: Last Vital Signs Temp 98.3 F 05/16/18 19:07 Pulse 82 05/16/18 19:07 Resp 20 05/16/18 19:07 BP 167/99 H 05/16/18 19:07 Pulse Ox 98 05/16/18 19:07 - Medical History PMH: Arthritis, Asthma, Bronchitis, COPD, Deep Vein Thrombosis, Gastrointestinal Ulcer, Gall Bladder Disease, HTN, Hypercholesterolemia, Pulmonary Embolism, Chronic Kidney Disease Denies: Alzheimer's Disease, Anemia, Atrial Fibrillation, Cardia Arrhythmia, CHF, Dementia, Emphysema, HIV, Hyperthyroidism, Hypothyroidism, Kidney Stones, Migraine, Mitral Valve Prolapse, Multiple Sclerosis, Parkinson's Disease, Peripheral Edema, Pneumonia, Seizures, Sickle Cell Disease, Sleep Apnea, TIA - Surgical History Surgical History: Hernia Repair Denies: Pacemaker - Family History Family History: States: Unknown Family Hx - Social History Current smoker - smoking cessation education provided: Yes (1/2 pack per day) Alcohol: None Drugs: Denies - Immunization History Hx Tetanus Toxoid Vaccination: Yes Hx Influenza Vaccination: Yes (11/2017) Hx Pneumococcal Vaccination: Yes (2017) - Home Medications Home Medications: Ambulatory Orders Medication Instructions Recorded Albuterol Sulfate [Ventolin Hfa] 2 puff IH Q6 PRN 12/11/17 Apixaban [Eliquis] 5 mg PO Q12 12/11/17 Pantoprazole Sodium [Protonix] 40 mg PO DAILY 12/11/17 Tamsulosin [Flomax] 0.4 mg PO QPM 12/11/17 amLODIPine [Norvasc] 10 mg PO DAILY 12/11/17 Albuterol/Ipratropium [Duoneb 3 3 ml NEB RQID #90 neb 12/14/17 mg/0.5 mg (3 ml) UD] - Allergies Allergies/Adverse Reactions: Allergies Allergy/AdvReac Type Severity Reaction Status Date / Time No Known Allergies Allergy Verified 04/06/18 01:31 Review of Systems ROS Statement: Except As Marked, All Systems Reviewed And Found Negative Constitutional: Negative for: Fever Cardiovascular: Negative for: Chest Pain (but has some tightness) Respiratory: Positive for: Shortness of Breath, Wheezing. Negative for: Cough Physical Exam - Reviewed Nursing Documentation Reviewed: Yes Vital Signs Reviewed: Yes - Physical Exam Appears: Positive for: No Acute Distress Head Exam: Positive for: ATRAUMATIC, NORMOCEPHALIC Skin: Positive for: Normal Color, Warm Eye Exam: Positive for: Normal appearance ENT: Positive for: Normal ENT Inspection Neck: Positive for: Normal, Painless ROM Cardiovascular/Chest: Positive for: Regular Rate, Rhythm Respiratory: Positive for: Wheezing (bilateral wheezing with prolonged end expiratory phase; wheeze is audible). Negative for: Respiratory Distress Gastrointestinal/Abdominal: Positive for: Normal Exam, Soft. Negative for: Tenderness Back: Positive for: Normal Inspection Extremity: Positive for: Normal ROM (all extremities) Neurological/Psych: Positive for: Awake, Alert, Oriented (x3) - Laboratory Results Result Diagrams: 05/16/18 20:52 05/16/18 20:52 - ECG O2 Sat by Pulse Oximetry: 98 (RA) Pulse Ox Interpretation: Normal Medical Decision Making Medical Decision Making: A/P: moderate COPD exacerbation, likely provoked by heavy smoking and medication non-compliance Time: 1936 Initial Plan: --ABG --Alcohol serum --BMP --UDS --CBC with differential --Duoneb 3ml INH x3 --Blood culture --Peak flow pre/post x3 Time: 2200 --Patient's ABG shows hypercapnia, hypoxia --Patient still wheezing, only mildly improved --Will admit for COPD exacerbation requiring frequent nebulizer treatment --Dr. Gómez brown Scribe Attestation: Documented by Kay Elizalde, acting as a scribe for Humberto Patino MD. Provider Scribe Attestation: All medical record entries made by the Scribe were at my direction and personally dictated by me. I have reviewed the chart and agree that the record accurately reflects my personal performance of the history, physical exam, medical decision making, and the department course for this patient. I have also personally directed, reviewed, and agree with the discharge instructions and disposition. Disposition - Clinical Impression Clinical Impression: COPD (chronic obstructive pulmonary disease) - Patient ED Disposition Is Patient to be Admitted: Yes - Disposition Disposition Time: 22:00 Condition: FAIR
[2018-05-16 20:56] LABS: BASO % 1.2 % (0.0-2.0); EOS # 0.4 K/uL (0.0-0.7); EOS % 10.3 % (0.0-4.0); HEMOGLOBIN 11.7 g/dL (12.0-18.0); LYMPH # 1.2 K/uL (1.0-4.3); LYMPH % 30.3 % (20.0-40.0); MEAN CELL VOLUME 92.8 fl (80.0-94.0); MEAN CORPUSCULAR HGB CONC 32.4 g/dL (33.0-37.0); MEAN PLATELET VOLUME 8.3 fl (7.2-11.7); MONO # 0.5 K/uL (0.0-0.8); MONO % 13.4 % (0.0-10.0); NEUT # 1.7 K/uL (1.8-7.0); NEUT % 44.8 % (50.0-75.0); NRBC % 0.1 % (0.0-0.0); RBC 3.91 Mil/uL (4.40-5.90); RED CELL DISTRIBUTION WIDTH 15.6 % (11.5-14.5); WHITE BLOOD COUNT 3.9 K/uL (4.8-10.8)
[2018-05-16 21:09] LABS: BLOOD UREA NITROGEN 18 mg/dl (9-20); CALCIUM 8.8 mg/dL (8.4-10.2); GFR NON-AFRICAN AMERICAN > 60
[2018-05-16 22:14] LABS: ABG ALLEN TEST YES; ARTERIAL BLOOD GAS HCO3 26.7 mmol/L (21-28); ARTERIAL BLOOD GAS O2 SAT 91.7 % (95-98); ARTERIAL BLOOD GAS PCO2 63 mm/Hg (35-45); ARTERIAL BLOOD GAS PO2 52 mm/Hg (80-100); ARTERIAL BLOOD GAS TCO2 32.9 mmol/L (22-28)
[2018-05-16] MEDS ORDERED: Azithromycin 500 MG in Sodium Chloride 0.9% 250 ML IVPB STA (22:37)
[2018-05-16] MEDS ORDERED: Azithromycin 500 MG IV IVPB ONE (23:34)
[2018-05-17 02:04] VITALS: BMI 33.3
[2018-05-17] MEDS ORDERED: methylPREDNISolone 60 MG in Sodium Chloride 0.9% 50 ML IVPB SCH (04:00)
[2018-05-17] MEDS ORDERED: Albuterol-Ipratrop 3 mg / 0.5 (3 ml) UD ONE ×2 (04:44→07:54)
[2018-05-17] MEDS: Albuterol-Ipratrop 3 mg / 0.5 (3 ml) UD INH SCH ×5 (04:46→23:14)
[2018-05-17] MEDS ORDERED: Azithromycin 500 MG IV IVPB ONE (07:55)
[2018-05-17] MEDS: Azithromycin 500 MG in Sodium Chloride 0.9% 250 ML IVPB SCH (08:04)
[2018-05-17] MEDS ORDERED: Pantoprazole 40 mg EC Tab PO ONE (08:28)
[2018-05-17] MEDS: Pantoprazole 40 mg EC Tab PO SCH (08:39)
--- NOTE | 2018-05-17 08:42 | RAD ---
Date of service: 05/16/2018 HISTORY: wheezing, hx of COPD COMPARISON: Portable chest 01/16/2018. TECHNIQUE: 1 view obtained. FINDINGS: LUNGS: No active pulmonary disease. PLEURA: No significant pleural effusion identified, no pneumothorax apparent. CARDIOVASCULAR: Calcific atherosclerotic changes are seen related to the thoracic aorta. Normal cardiac size. No pulmonary vascular congestion. OSSEOUS STRUCTURES: No significant abnormalities. VISUALIZED UPPER ABDOMEN: Normal. OTHER FINDINGS: None. IMPRESSION: No interval acute cardiopulmonary disease appreciated.
[2018-05-17] MEDS ORDERED: Enoxaparin 40 mg Syringe SC SCH (09:00)
[2018-05-17 09:50] LABS: BARBITURATES, UR NEGATIVE (NEGATIVE); BENZODIAZEPINES, UR NEGATIVE (NEGATIVE); OPIATES, UR POSITIVE (NEGATIVE); PHENCYCLIDINE, UR NEGATIVE (NEGATIVE)
[2018-05-18] MEDS: Albuterol-Ipratrop 3 mg / 0.5 (3 ml) UD INH SCH ×6 (04:36→23:14)
[2018-05-18] MEDS: Pantoprazole 40 mg EC Tab PO SCH (10:22)
[2018-05-18] MEDS: Azithromycin 500 MG in Sodium Chloride 0.9% 250 ML IVPB SCH (10:23)
--- NOTE | 2018-05-18 16:15 | CP.PCM.HP ---
Past Patient History - Infectious Disease Hx of Infectious Diseases: None - Past Medical History & Family History Past Medical History?: Yes - Past Social History Smoking Status: Current Some Days Smoker - CARDIAC Hx Cardiac Disorders: Yes Hx Hypertension: Yes - PULMONARY Hx Asthma: Yes Hx Bronchitis: Yes Hx Chronic Obstructive Pulmonary Disease (COPD): Yes Hx Emphysema: No Hx Pneumonia: No Hx Pulmonary Embolism: Yes Hx Sleep Apnea: No - NEUROLOGICAL Hx Alzheimer's Disease: No Hx Dementia: No Hx Migraine: No Hx Multiple Sclerosis: No Hx Parkinson's Disease: No Hx Seizures: No Hx Transient Ischemic Attacks (TIA): No - HEENT Hx HEENT Problems: No Hx Blind: No Hx Cataracts: No Hx Deafness: No Hx Difficulty Chewing: No Hx Epistaxis: No Hx Glaucoma: No Hx Macular Degeneration: No Other/Comment: uses eye glasses - RENAL Hx Chronic Kidney Disease: No - ENDOCRINE/METABOLIC Hx Endocrine Disorders: No Hx Hyperthyroidism: No Hx Hypothyroidism: No - HEMATOLOGICAL/ONCOLOGICAL Hx AIDS: No Hx Human Immunodeficiency Virus (HIV): No - INTEGUMENTARY Hx Dermatological Problems: No - MUSCULOSKELETAL/RHEUMATOLOGICAL Hx Falls: No - GASTROINTESTINAL Hx Gall Bladder Disease: Yes - GENITOURINARY/GYNECOLOGICAL Hx Genitourinary Disorders: No - PSYCHIATRIC Hx Substance Use: No - SURGICAL HISTORY Hx Surgeries: Yes Hx Herniorrhaphy: Yes (left) Hx Musculoskeletal Surgery: Yes (LEFT KNEE) Other/Comment: collapsed lung - ANESTHESIA Hx Anesthesia: Yes Hx Anesthesia Reactions: No Hx Malignant Hyperthermia: No Meds Allergies/Adverse Reactions: Allergies Allergy/AdvReac Type Severity Reaction Status Date / Time No Known Allergies Allergy Verified 04/06/18 01:31 Results - Vital Signs Recent Vital Signs: Last Vital Signs Temp 98.2 F 05/18/18 16:12 Pulse 82 05/18/18 16:12 Resp 18 05/18/18 16:12 BP 110/62 05/18/18 16:12 Pulse Ox 95 05/18/18 16:12 - Labs Result Diagrams: 05/16/18 20:52 05/16/18 20:52 Assessment & Plan (1) COPD with acute exacerbation Status: Acute
[2018-05-19] MEDS: Albuterol-Ipratrop 3 mg / 0.5 (3 ml) UD INH SCH ×6 (05:00→23:14)
[2018-05-19 08:52] LABS: BASO % 0.1 % (0.0-2.0); HEMOGLOBIN 12.2 g/dL (12.0-18.0); LYMPH # 0.3 K/uL (1.0-4.3); LYMPH % 2.6 % (20.0-40.0); MEAN CELL VOLUME 92.4 fl (80.0-94.0); MEAN CORPUSCULAR HEMOGLOBIN 29.9 pg (27.0-31.0); MEAN CORPUSCULAR HGB CONC 32.4 g/dL (33.0-37.0); MEAN PLATELET VOLUME 8.8 fl (7.2-11.7); MONO # 0.1 K/uL (0.0-0.8); MONO % 1.4 % (0.0-10.0); NEUT # 9.2 K/uL (1.8-7.0); NEUT % 95.9 % (50.0-75.0); PLATELET COUNT 232 K/uL (130-400); RBC 4.08 Mil/uL (4.40-5.90); WHITE BLOOD COUNT 9.5 K/uL (4.8-10.8)
[2018-05-19 09:40] LABS: ALB/GLOB RATIO 1.2 (1.0-2.1); ALBUMIN 3.9 g/dL (3.5-5.0); ALT/SGPT 23 U/L (21-72); AST/SGOT 22 U/L (17-59); BLOOD UREA NITROGEN 22 mg/dl (9-20); CALCIUM 9.2 mg/dL (8.4-10.2); GFR NON-AFRICAN AMERICAN > 60
[2018-05-19] MEDS: Pantoprazole 40 mg EC Tab PO SCH (10:13)
[2018-05-19] MEDS: Azithromycin 500 MG in Sodium Chloride 0.9% 250 ML IVPB SCH (10:16)
--- NOTE | 2018-05-19 11:00 | CP.PCM.PN ---
Subjective - Date & Time of Evaluation Date of Evaluation: 05/18/18 Objective - Vital Signs/Intake and Output Vital Signs (last 24 hours): Temp Pulse Resp BP Pulse Ox 97.8 F 84 19 129/77 96 05/19/18 08:08 05/19/18 10:12 05/19/18 08:08 05/19/18 10:12 05/19/18 08:08 - Medications Medications: Current Medications Albuterol/Ipratropium (Duoneb 3 Mg/0.5 Mg (3 Ml) Ud) 3 ml INH RQ4 LILY Last Admin: 05/19/18 07:24 Dose: 3 ml Amlodipine Besylate (Norvasc) 10 mg PO DAILY LILY Last Admin: 05/19/18 10:12 Dose: 10 mg Apixaban (Eliquis) 5 mg PO Q12 LILY; Protocol Last Admin: 05/19/18 10:12 Dose: 5 mg Azithromycin 500 mg/ Sodium (Chloride) 250 mls @ 250 mls/hr IVPB DAILY LILY; Protocol Last Admin: 05/19/18 10:16 Dose: 250 mls/hr Methylprednisolone (Solu-Medrol) 60 mg IV Q6 LILY Last Admin: 05/19/18 10:13 Dose: 60 mg Pantoprazole Sodium (Protonix Ec Tab) 40 mg PO DAILY LILY Last Admin: 05/19/18 10:13 Dose: 40 mg Tamsulosin HCl (Flomax) 0.4 mg PO QPM LILY Last Admin: 05/18/18 17:36 Dose: 0.4 mg - Labs Labs: 05/19/18 08:00 05/19/18 08:00 Assessment and Plan (1) COPD with acute exacerbation Status: Acute
[2018-05-19 14:19] LABS: LYMPHOCYTE 6 % (20-50); MONOCYTE 2 % (0-10); NEUTROPHIL 92 % (42-75); PLATELET ESTIMATE NORMAL (NORMAL); TOTAL CELLS COUNTED 100
[2018-05-19 14:24] LABS: ANISOCYTOSIS SLIGHT
[2018-05-20] MEDS: Albuterol-Ipratrop 3 mg / 0.5 (3 ml) UD INH SCH ×3 (04:44→11:34)
[2018-05-20] MEDS: Pantoprazole 40 mg EC Tab PO SCH (09:44)
[2018-05-20] MEDS: Azithromycin 500 MG in Sodium Chloride 0.9% 250 ML IVPB SCH (09:45)
[2018-05-20 09:54] VITALS: BP 161/81; PULSE 70; RESP 20; TEMP 97.7; O2SAT 100
--- NOTE | 2018-05-21 23:48 | CP.PCM.PN ---
Subjective - Date & Time of Evaluation Date of Evaluation: 05/19/18 Objective - Vital Signs/Intake and Output Vital Signs (last 24 hours): Temp Pulse Resp BP Pulse Ox 97.7 F 70 20 161/81 H 100 05/20/18 09:00 05/20/18 09:44 05/20/18 09:00 05/20/18 09:44 05/20/18 09:00 - Labs Labs: 05/19/18 08:00 05/19/18 08:00 Assessment and Plan (1) COPD with acute exacerbation Status: Acute
--- NOTE | 2018-05-21 23:49 | CP.PCM.DIS ---
Provider - Provider Date of Admission: 05/18/18 17:50 Attending physician: Arie Magaña MD Consults: 05/19/18 22:09 Case Management Referral Routine Comment: Physician Instructions: Reason For Exam: discharge planning Reason for Referral: Discharge Planning 05/19/18 22:10 Social Work Referral Routine Comment: homeless Physician Instructions: Reason For Exam: discharge planning Time Spent in preparation of Discharge (in minutes): 25 Diagnosis - Discharge Diagnosis (1) COPD with acute exacerbation Status: Acute Hospital Course - Lab Results Lab Results: Micro Results 05/16/18 20:48 Blood-Venous Blood Culture - Final NO GROWTH AFTER 5 DAYS 05/16/18 20:48 Blood-Venous Gram Stain - Final TEST NOT PERFORMED 05/16/18 21:00 Blood-Venous Blood Culture - Preliminary NO GROWTH AFTER 4 DAYS Most Recent Lab Values WBC 9.5 K/uL (4.8-10.8) D 05/19/18 08:00 RBC 4.08 Mil/uL (4.40-5.90) L 05/19/18 08:00 Hgb 12.2 g/dL (12.0-18.0) 05/19/18 08:00 Hct 37.7 % (35.0-51.0) 05/19/18 08:00 MCV 92.4 fl (80.0-94.0) 05/19/18 08:00 MCH 29.9 pg (27.0-31.0) 05/19/18 08:00 MCHC 32.4 g/dL (33.0-37.0) L 05/19/18 08:00 RDW 16.0 % (11.5-14.5) H 05/19/18 08:00 Plt Count 232 K/uL (130-400) 05/19/18 08:00 MPV 8.8 fl (7.2-11.7) 05/19/18 08:00 Neut % (Auto) 95.9 % (50.0-75.0) H 05/19/18 08:00 Lymph % (Auto) 2.6 % (20.0-40.0) L 05/19/18 08:00 [place] % (Auto) 1.4 % (0.0-10.0) 05/19/18 08:00 Eos % (Auto) 0.0 % (0.0-4.0) 05/19/18 08:00 Baso % (Auto) 0.1 % (0.0-2.0) 05/19/18 08:00 Neut # (Auto) 9.2 K/uL (1.8-7.0) H 05/19/18 08:00 Lymph # (Auto) 0.3 K/uL (1.0-4.3) L 05/19/18 08:00 [place] # (Auto) 0.1 K/uL (0.0-0.8) 05/19/18 08:00 Eos # (Auto) 0.0 K/uL (0.0-0.7) 05/19/18 08:00 Baso # (Auto) 0.0 K/uL (0.0-0.2) 05/19/18 08:00 Neutrophils % (Manual) 92 % (42-75) H 05/19/18 08:00 Lymphocytes % (Manual) 6 % (20-50) L 05/19/18 08:00 Monocytes % (Manual) 2 % (0-10) 05/19/18 08:00 Platelet Estimate Normal (NORMAL) 05/19/18 08:00 Anisocytosis (manual) Slight 05/19/18 08:00 pCO2 63 mm/Hg (35-45) H 05/16/18 22:08 pO2 52 mm/Hg (80-100) L 05/16/18 22:08 HCO3 26.7 mmol/L (21-28) 05/16/18 22:08 ABG pH 7.30 (7.35-7.45) L 05/16/18 22:08 ABG Total CO2 32.9 mmol/L (22-28) H 05/16/18 22:08 ABG O2 Saturation 91.7 % (95-98) L 05/16/18 22:08 ABG Base Excess 2.8 mmol/L (-2.0-3.0) 05/16/18 22:08 Ryan Test Yes 05/16/18 22:08 ABG Potassium 3.7 mmol/L (3.6-5.2) 05/16/18 22:08 A-a O2 Difference 19.0 mm/Hg 05/16/18 22:08 Sodium 134.0 mmol/L (132-148) 05/16/18 22:08 Chloride 99.0 mmol/L (98-107) 05/16/18 22:08 Glucose 130 mg/dL (75-110) H 05/16/18 22:08 Lactate 1.1 mmol/L (0.7-2.1) 05/16/18 22:08 FiO2 21.0 % 05/16/18 22:08 Sodium 138 mmol/l (132-148) 05/19/18 08:00 Potassium 4.1 MMOL/L (3.6-5.0) 05/19/18 08:00 Chloride 97 mmol/L (98-107) L 05/19/18 08:00 Carbon Dioxide 35 mmol/L (22-30) H 05/19/18 08:00 Anion Gap 10 (10-20) 05/19/18 08:00 BUN 22 mg/dl (9-20) H 05/19/18 08:00 Creatinine 0.9 mg/dl (0.8-1.5) 05/19/18 08:00 Est GFR ( Amer) > 60 05/19/18 08:00 Est GFR (Non-Af Amer) > 60 05/19/18 08:00 Random Glucose 124 mg/dL (75-110) H 05/19/18 08:00 Calcium 9.2 mg/dL (8.4-10.2) 05/19/18 08:00 Phosphorus 3.8 mg/dl (2.5-4.5) 05/19/18 08:00 Magnesium 2.4 MG/DL (1.6-2.3) H 05/19/18 08:00 Total Bilirubin 0.2 mg/dl (0.2-1.3) 05/19/18 08:00 AST 22 U/L (17-59) 05/19/18 08:00 ALT 23 U/L (21-72) 05/19/18 08:00 Alkaline Phosphatase 74 U/L (38-126) 05/19/18 08:00 Total Protein 7.0 G/DL (6.3-8.2) 05/19/18 08:00 Albumin 3.9 g/dL (3.5-5.0) 05/19/18 08:00 Globulin 3.2 gm/dL (2.2-3.9) 05/19/18 08:00 Albumin/Globulin Ratio 1.2 (1.0-2.1) 05/19/18 08:00 Vitamin B12 460 pg/mL (239-931) 05/19/18 08:00 TSH 3rd Generation 0.25 mIU/ML (0.46-4.68) L 05/19/18 08:00 Arterial Blood Potassium 3.7 mmol/L (3.6-5.2) 05/16/18 22:08 Urine Opiates Screen Positive (NEGATIVE) H 05/17/18 09:08 Urine Methadone Screen Negative (NEGATIVE) 05/17/18 09:08 Ur Barbiturates Screen Negative (NEGATIVE) 05/17/18 09:08 Ur Phencyclidine Scrn Negative (NEGATIVE) 05/17/18 09:08 Ur Amphetamines Screen Negative (NEGATIVE) 05/17/18 09:08 U Benzodiazepines Scrn Negative (NEGATIVE) 05/17/18 09:08 U Oth Cocaine Metabols Negative (NEGATIVE) 05/17/18 09:08 U Cannabinoids Screen Negative (NEGATIVE) 05/17/18 09:08 Alcohol, Quantitative < 10 mg/dl (0-10) 05/16/18 20:52 Discharge Exam - Head Exam Head Exam: ATRAUMATIC, NORMOCEPHALIC Discharge Plan - Discharge Medications Prescriptions: Prednisone 10 mg PO DAILY #12 tab.ds.pk Azithromycin [Zithromax Tri-Anoop] 500 mg PO DAILY #5 tablet - Follow Up Plan Condition: FAIR Disposition: HOME/ ROUTINE Instructions: Chronic Obstructive Pulmonary Disease (COPD), Including Emphysema Referrals: Arie Magaña MD [Staff Provider] -
== END 2018-05-20 12:02 | disposition home or self-care (01) | DRG 88 ==
LOC: H.ER 18:42 → INTOOBSV 22:20 → OBSVTOIN 22:20 → H.ERHOLD 22:20 → UNDOADMOB 22:20 → H.ERHOLD 05-17 10:18 → H.TEL 05-17 10:18 → H.MEDSURG1 05-18 17:50 → OBSVTOIN 05-18 17:50 → H.MEDSURG1 05-18 18:10 → H.TEL 05-18 18:10 → UNDODISIN 05-20 12:02
PROVIDERS: ADMIT Internal Medicine; ATTEND Internal Medicine
PROC: 5A0945Z Assistance with Respiratory Ventilation, 24-96 Consecutive Hours (ICD-10-PCS; principal; 2018-05-18)
DX: J44.1 Chronic obstructive pulmonary disease with (acute) exacerbation (principal); N18.9 Chronic kidney disease, unspecified; R09.02 Hypoxemia; Z86.711 Personal history of pulmonary embolism; Z86.718 Personal history of other venous thrombosis and embolism; Z79.01 Long term (current) use of anticoagulants; F17.210 Nicotine dependence, cigarettes, uncomplicated; I12.9 Hypertensive chronic kidney disease with stage 1 through stage 4 chronic kidney disease, or unspecified chronic kidney disease; E78.00 Pure hypercholesterolemia, unspecified; Z91.14 Patient's other noncompliance with medication regimen; M19.90 Unspecified osteoarthritis, unspecified site; R06.89 Other abnormalities of breathing

== ENCOUNTER 2018-06-30 01:12 | Emergency (ER) | payer MEDICAID ==
[2018-06-30 01:12] VITALS: BMI 33.3
[2018-06-30 02:17] VITALS: RESP 18
[2018-06-30] MEDS ORDERED: Albuterol-Ipratrop 3 mg / 0.5 (3 ml) UD INH STA (04:35)
--- NOTE | 2018-06-30 05:59 | ED PDOC ---
HPI: Psych/Substance Abuse Time Seen by Provider: 06/30/18 01:36 Chief Complaint (Nursing): Substance Abuse History Per: Patient History/Exam Limitations: no limitations Onset/Duration Of Symptoms: Hrs Current Symptoms Are (Timing): Better Additional Complaint(s): 57 year old with history of opiate abuse and COPD brought in by EMS for evaluation after being found in grocery store. Patient has no complaints, denies suicidal or homicidal thoughts. Denies fevers, chest pain, shortness of breath, however patient requesting nebulizer treatment. Past Medical History Reviewed: Historical Data, Nursing Documentation, Vital Signs Vital Signs: Last Vital Signs Temp 98.4 F 06/30/18 02:17 Pulse 84 06/30/18 02:17 Resp 18 06/30/18 02:17 BP 142/79 06/30/18 02:17 Pulse Ox 94 L 06/30/18 02:17 Primary Care Provider: FAMILY PROVIDER,NO - Medical History PMH: Arthritis, Asthma, Bronchitis, COPD, Deep Vein Thrombosis, Gastrointestinal Ulcer, Gall Bladder Disease, HTN, Hypercholesterolemia, Pulmonary Embolism Denies: Alzheimer's Disease, Anemia, Atrial Fibrillation, Cardia Arrhythmia, CHF, Dementia, Emphysema, HIV, Hyperthyroidism, Hypothyroidism, Kidney Stones, Migraine, Mitral Valve Prolapse, Multiple Sclerosis, Parkinson's Disease, Peripheral Edema, Pneumonia, Chronic Kidney Disease, Seizures, Sickle Cell Disease, Sleep Apnea, TIA - Surgical History Surgical History: Hernia Repair Denies: Pacemaker - Family History Family History: States: Unknown Family Hx - Immunization History Hx Tetanus Toxoid Vaccination: Yes Hx Influenza Vaccination: Yes (11/2017) Hx Pneumococcal Vaccination: Yes (2017) - Home Medications Home Medications: Ambulatory Orders Medication Instructions Recorded Albuterol Sulfate [Ventolin Hfa] 2 puff IH Q6 PRN 12/11/17 Apixaban [Eliquis] 5 mg PO Q12 12/11/17 Pantoprazole Sodium [Protonix] 40 mg PO DAILY 12/11/17 Tamsulosin [Flomax] 0.4 mg PO QPM 12/11/17 amLODIPine [Norvasc] 10 mg PO DAILY 12/11/17 Albuterol/Ipratropium [Duoneb 3 3 ml NEB RQID #90 neb 12/14/17 mg/0.5 mg (3 ml) UD] Azithromycin [Zithromax Tri-Anoop] 500 mg PO DAILY #5 tablet 04/15/19 Prednisone 10 mg PO DAILY #12 tab.ds.pk 05/20/18 - Allergies Allergies/Adverse Reactions: Allergies Allergy/AdvReac Type Severity Reaction Status Date / Time No Known Allergies Allergy Verified 04/06/18 01:31 Review of Systems ROS Statement: Except As Marked, All Systems Reviewed And Found Negative Physical Exam - Reviewed Nursing Documentation Reviewed: Yes Vital Signs Reviewed: Yes - Physical Exam Appears: Positive for: Well, Non-toxic, No Acute Distress Head Exam: Positive for: ATRAUMATIC, NORMAL INSPECTION, NORMOCEPHALIC Skin: Positive for: Normal Color, Warm, DRY Eye Exam: Positive for: EOMI, Normal appearance, PERRL ENT: Positive for: Normal ENT Inspection Neck: Positive for: Normal, Painless ROM Cardiovascular/Chest: Positive for: Regular Rate, Rhythm Respiratory: Positive for: Wheezing. Negative for: Decreased Breath Sounds, Accessory Muscle Use, Crackles, Rales, Rhonchi, Respiratory Distress Gastrointestinal/Abdominal: Positive for: Normal Exam, Soft Back: Positive for: Normal Inspection Extremity: Positive for: Normal ROM Neurological/Psych: Positive for: Awake, Alert, Normal Tone, Oriented (x 3). Negative for: Motor/Sensory Deficits - ECG O2 Sat by Pulse Oximetry: 94 Medical Decision Making Medical Decision Making: Will provided nebulizer treatment for mild wheeze Other than this, patient requires no further treatment or workup. Disposition - Clinical Impression Clinical Impression: COPD (chronic obstructive pulmonary disease), Heroin abuse - Patient ED Disposition Is Patient to be Admitted: No - Disposition Referrals: [facility] [Outside] Disposition: Routine/Home Disposition Time: 05:59 Condition: GOOD Instructions: Drug Abuse and Drug Addiction (DC)
[2018-06-30 07:19] VITALS: BP 138/76; PULSE 80; TEMP 98.1; O2SAT 99
== END 2018-06-30 06:10 | disposition home or self-care (01) ==
LOC: H.ER 01:12
DX: J44.9 Chronic obstructive pulmonary disease, unspecified (principal); F11.10 Opioid abuse, uncomplicated; E78.00 Pure hypercholesterolemia, unspecified; I10 Essential (primary) hypertension; Z79.01 Long term (current) use of anticoagulants; Z86.711 Personal history of pulmonary embolism; Z86.718 Personal history of other venous thrombosis and embolism